=== PATIENT | female | born 1955 | race African-American/Black ===

== ENCOUNTER → 2016-11-01 | Outpatient (CLI) | payer MEDICARE, OTHER ==
--- NOTE | 2016-11-03 07:59 | MM ---
Reason for exam: screening (asymptomatic). Last mammogram was performed 1 year and 2 months ago. History: Patient is postmenopausal. Took estrogen for 1 month. Physical Findings: A clinical breast exam by your physician is recommended on an annual basis and results should be correlated with mammographic findings. MG 3D Screening Mammo W/Cad Bilateral CC and MLO view(s) were taken. Prior study comparison: August 28, 2015, bilateral MG 3d screening mammo w/cad. November 14, 2011, bilateral digital screening mammo w/CAD. There are scattered fibroglandular densities. No significant changes when compared with prior studies. ASSESSMENT: Negative, BI-RAD 1 RECOMMENDATION: Routine screening mammogram of both breasts in 1 year.
== END | disposition home or self-care (01) ==
LOC: RADMAMWWP 16:23
PROVIDERS: ATTEND Family Medicine
DX: Z12.31 Encounter for screening mammogram for malignant neoplasm of breast (principal)
CPT/HCPCS: 77063; G0202

== ENCOUNTER 2017-01-11 20:26 | Emergency (ER) | payer MEDICARE, OTHER ==
[2017-01-11 20:45] VITALS: RESP 20
[2017-01-11] MEDS ORDERED: HYDROmorphone 1 MG/ML 1 ML SYRINGE IVP STA (23:18)
[2017-01-11] MEDS ORDERED: ONDANSETRON 4 MG/2 ML VIAL IVP STA (23:18)
[2017-01-11] MEDS ORDERED: SODIUM CHLORIDE 0.9% 500 ML IV STA (23:18)
[2017-01-11] MEDS ORDERED: SODIUM CHLORIDE 0.9% 1,000 ML IV STA (23:18)
--- NOTE | 2017-01-11 23:26 | ED ---
General Adult HPI - General Source: patient, family, RN notes reviewed Mode of arrival: ambulatory Limitations: no limitations <Tadeo Owen - Last Filed: 01/12/17 01:25> <Matthew Wolf - Last Filed: 01/12/17 03:10> - General Chief complaint: Abdominal Pain Stated complaint: Left side Pain/Female/bleeding Time Seen by Provider: 01/11/17 22:08 - History of Present Illness Initial comments: Chief complaint and history of present illness a 61-year-old female here with her . Patient reports for the past 3 days been having left lower quadrant pain. Initially her urine was darker than it is today she also noticed a few drops of blood. She does have a history of kidney stones the last one was 10 years ago. Denies any history of diverticulitis. She's been nauseated but not vomiting. She has had increased frequency of urine and large amounts not small. (Tadeo Owen) - Related Data Home Medications Medication Instructions Recorded Confirmed Albuterol Nebulized [Ventolin 2.5 mg INHALATION RT-QID PRN 02/21/14 01/11/17 Nebulized] Budesonide [Pulmicort] 0.5 mg INHALATION BID PRN 02/21/14 01/11/17 Hydrochlorothiazide [Hydrodiuril] 12.5 mg PO DAILY 02/21/14 01/11/17 Simvastatin [Zocor] 20 mg PO HS 02/21/14 01/11/17 hydrOXYzine HCL 10 mg PO HS 02/21/14 01/11/17 Atenolol [Tenormin] 50 mg PO DAILY 01/11/17 01/11/17 Clobetasol Propionate [Temovate] 1 applic TOPICAL BID PRN 01/11/17 01/11/17 Hydrocortisone Oint 1 applic TOPICAL HS 01/11/17 01/11/17 [Hydrocortisone 2.5% Oint] Levothyroxine Sodium [Synthroid] 88 mcg PO DAILY 01/11/17 01/11/17 Allergies Allergy/AdvReac Type Severity Reaction Status Date / Time Antihistamines - Alkylamine Allergy Unknown Verified 01/11/17 22:31 Iodinated Contrast Media - Allergy Unknown Verified 01/11/17 22:31 Oral and [Iodinated Contrast Media - IV Dye] lead Allergy Unknown Verified 01/11/17 22:31 aspirin AdvReac nosebleeds Verified 01/11/17 22:31 diphenhydramine HCl AdvReac Rapid Verified 01/11/17 22:31 [From [facility]] Heart Rate Review of Systems ROS Other: All systems not noted in ROS Statement are negative. <Tadeo Owen - Last Filed: 01/12/17 01:25> ROS Other: All systems not noted in ROS Statement are negative. <Matthew Wolf - Last Filed: 01/12/17 03:10> ROS Statement: Those systems with pertinent positive or pertinent negative responses have been documented in the HPI. Review of systems no visual acuity or headache no chest pain or shortness of breath she has nausea but no vomiting. Frequency of urination but no dysuria. She has noticed dark urine which cleared and that she has also noticed what she thinks was several drops of blood. The patient's pain mainly in the left lower quadrant. She states it reminds her of her kidney stone she had years ago. No difficulty bowel movements. Mildly decreased appetite. All systems are reviewed Past medical problems significant for kidney stones, asthma, coronary disease, COPD, TIA, diabetes mellitus [id number] type. GERD, hyperlipidemia, hypertension, rheumatoid arthritis, thyroid disorder. Surgeries include bladder surgery, heart catheterization but no stents. Hysterectomy and orthopedic surgery. Family history father had prostate cancer. Patient reports she has ALLERGIES to iodine both oral and IV. She also has a history of ALLERGIES to aspirin and diphenhydramine. (Tadeo Owen) Past Medical History Past Medical History: Asthma, Coronary Artery Disease (CAD), COPD, CVA/TIA, Diabetes Mellitus, GERD/Reflux, Hyperlipidemia, Hypertension, Rheumatoid Arthritis (RA), Skin Disorder, Thyroid Disorder Additional Past Medical History / Comment(s): only 1 functioning kidney, hx of colon polyps,eczema History of Any Multi-Drug Resistant Organisms: None Reported Past Surgical History: Bladder Surgery, Heart Catheterization, Hysterectomy, Orthopedic Surgery Past Anesthesia/Blood Transfusion Reactions: No Reported Reaction Past Psychological History: No Psychological Hx Reported Smoking Status: Former smoker Past Alcohol Use History: None Reported Past Drug Use History: None Reported <Tadeo Owen - Last Filed: 01/12/17 01:25> General Exam Limitations: no limitations <Tadeo Owen - Last Filed: 01/12/17 01:25> General appearance: alert, in no apparent distress Head exam: Present: atraumatic, normocephalic, normal inspection Eye exam: Present: normal appearance, PERRL, EOMI. Absent: scleral icterus, conjunctival injection, periorbital swelling ENT exam: Present: normal exam, mucous membranes moist Neck exam: Present: normal inspection. Absent: tenderness, meningismus, lymphadenopathy Respiratory exam: Present: normal lung sounds bilaterally. Absent: respiratory distress, wheezes, rales, rhonchi, stridor Cardiovascular Exam: Present: regular rate, normal rhythm, normal heart sounds. Absent: systolic murmur, diastolic murmur, rubs, gallop, clicks GI/Abdominal exam: Present: soft, normal bowel sounds. Absent: distended, tenderness, guarding, rebound, rigid Extremities exam: Present: normal inspection, full ROM, normal capillary refill. Absent: tenderness, pedal edema, joint swelling, calf tenderness Back exam: Present: normal inspection Neurological exam: Present: alert, oriented X3, CN II-XII intact Psychiatric exam: Present: normal affect, normal mood Skin exam: Present: warm, dry, intact, normal color. Absent: rash <Matthew Wolf - Last Filed: 01/12/17 03:10> - General Exam Comments Initial Comments: General: The patient is awake and alert, tearful complaining of left lower quadrant pain for 3 Days with nausea but no vomiting. Also dark-colored urine. Vital signs shows temperature 97.8 pulse 60 respiratory rate 20, blood pressure 119/56 and pulse ox 90% room air Eye: Pupils are equal, round and reactive to light, extra-ocular movements are intact ; there is normal conjunctiva bilaterally. No signs of icterus. Ears, nose, mouth and throat: There are moist mucous membranes and no oral lesions. Neck: The neck is supple, there is no tenderness . Cardiovascular: There is a regular rate and rhythm. No murmur, rub or gallop is appreciated. Respiratory: Lungs are clear to auscultation, respirations are non-labored, breath sounds are equal. No wheezes, stridor, rales, or rhonchi. Gastrointestinal: Soft, left lower quadrant pain. No rebound or referred pain. Back ;There is no tenderness to palpation in the midline. There is no obvious deformity. No rashes noted. Musculoskeletal: Normal ROM, no tenderness, There is no pedal edema. There is no calf tenderness or swelling. Sensation intact. Neurological: No neuro deficits Skin: Skin is warm and dry and no rashes or lesions are noted. (Tadeo Owen) Course <Tadeo Owen - Last Filed: 01/12/17 01:25> <Matthew Wolf - Last Filed: 01/12/17 03:10> Vital Signs 01/11/17 01/11/17 20:39 23:28 Temperature 97.8 F 98.3 F Pulse Rate 60 89 Respiratory 20 20 Rate Blood Pressure 119/56 140/58 O2 Sat by Pulse 98 98 Oximetry - Reevaluation(s) Reevaluation #1: 01/12/17 03:09 Patient is feeling better, CTA negative, patient can be discharged home (Matthew Wolf) Medical Decision Making - Lab Data Result diagrams: 01/11/17 23:33 01/11/17 23:33 <Tadeo Owen - Last Filed: 01/12/17 01:25> - Lab Data Result diagrams: 01/11/17 23:33 01/11/17 23:33 - Radiology Data Radiology results: report reviewed (CT head and pelvis is negative for acute disease), image reviewed <Matthew Wolf - Last Filed: 01/12/17 03:10> - Medical Decision Making Medical decision making; patient's white count 6.1 hemoglobin 12 hematocrit 38. INR is 1.1. Potassium is 4.1 with BUN 24 creatinine 1.1 with a GFR 50. Glucose 99. Amylase mildly elevated 113, normal lipase. Urinalysis showed 16 red cells and 4 white cells X-ray of the abdomen was done in 2 views and reviewed by radiologist final impression is no radial graph evidence of acute abdominal disease or bowel obstruction. No radiopaque renal calculi. As read by Dr. Mcknight (Tadeo Owen ) 61 female ER for evaluation of abdominal pain. Pain is plans resolved chest x- rays negative no diverticulitis and no renal disease. Patient can be discharged home (Matthew Wolf) - Lab Data Lab Results 01/11/17 01/11/17 01/11/17 Range/Units 23:33 23:33 23:33 WBC 6.1 (3.8-10.6) k/uL RBC 4.55 (3.80-5.40) m/uL Hgb 12.4 (11.4-16.0) gm/dL Hct 38.4 (34.0-46.0) % MCV 84.4 (80.0-100.0) fL MCH 27.4 (25.0-35.0) pg MCHC 32.4 (31.0-37.0) g/dL RDW 13.6 (11.5-15.5) % Plt Count 156 (150-450) k/uL Neutrophils % 62 % Lymphocytes % 28 % Monocytes % 4 % Eosinophils % 2 % Basophils % 1 % Neutrophils # 3.8 (1.3-7.7) k/uL Lymphocytes # 1.7 (1.0-4.8) k/uL Monocytes # 0.3 (0-1.0) k/uL Eosinophils # 0.2 (0-0.7) k/uL Basophils # 0.0 (0-0.2) k/uL PT (9.0-12.0) sec INR (<1.1) Sodium 146 H (137-145) mmol/L Potassium 4.1 (3.5-5.1) mmol/L Chloride 106 (98-107) mmol/L Carbon Dioxide 29 (22-30) mmol/L Anion Gap 11 mmol/L BUN 24 H (7-17) mg/dL Creatinine 1.10 H (0.52-1.04) mg/dL Est GFR (MDRD) Af Amer >60 (>60 ml/min/1.73 sqM) Est GFR (MDRD) Non-Af 50 (>60 ml/min/1.73 sqM) Glucose 99 (74-99) mg/dL Plasma Lactic Acid Erasmo 0.7 (0.7-2.0) mmol/L Calcium 9.8 (8.4-10.2) mg/dL Total Bilirubin 0.3 (0.2-1.3) mg/dL AST 33 (14-36) U/L ALT 37 (9-52) U/L Alkaline Phosphatase 56 (38-126) U/L Total Protein 7.4 (6.3-8.2) g/dL Albumin 4.2 (3.5-5.0) g/dL Amylase 113 H (30-110) U/L Lipase 184 (23-300) U/L Urine Color Urine Appearance (Clear) Urine pH (5.0-8.0) Ur Specific [place] (1.001-1.035) Urine Protein (Negative) Urine Glucose (UA) (Negative) Urine Ketones (Negative) Urine Blood (Negative) Urine Nitrite (Negative) Urine Bilirubin (Negative) Urine Urobilinogen (<2.0) mg/dL Ur Leukocyte Esterase (Negative) Urine RBC (0-5) /hpf Urine WBC (0-5) /hpf Ur Squamous Epith Cells (0-4) /hpf Urine Bacteria (None) /hpf Urine Mucus (None) /hpf 01/11/17 01/11/17 Range/Units 23:33 23:33 WBC (3.8-10.6) k/uL RBC (3.80-5.40) m/uL Hgb (11.4-16.0) gm/dL Hct (34.0-46.0) % MCV (80.0-100.0) fL MCH (25.0-35.0) pg MCHC (31.0-37.0) g/dL RDW (11.5-15.5) % Plt Count (150-450) k/uL Neutrophils % % Lymphocytes % % Monocytes % % Eosinophils % % Basophils % % Neutrophils # (1.3-7.7) k/uL Lymphocytes # (1.0-4.8) k/uL Monocytes # (0-1.0) k/uL Eosinophils # (0-0.7) k/uL Basophils # (0-0.2) k/uL PT 10.9 (9.0-12.0) sec INR 1.1 (<1.1) Sodium (137-145) mmol/L Potassium (3.5-5.1) mmol/L Chloride (98-107) mmol/L Carbon Dioxide (22-30) mmol/L Anion Gap mmol/L BUN (7-17) mg/dL Creatinine (0.52-1.04) mg/dL Est GFR (MDRD) Af Amer (>60 ml/min/1.73 sqM) Est GFR (MDRD) Non-Af (>60 ml/min/1.73 sqM) Glucose (74-99) mg/dL Plasma Lactic Acid Erasmo (0.7-2.0) mmol/L Calcium (8.4-10.2) mg/dL Total Bilirubin (0.2-1.3) mg/dL AST (14-36) U/L ALT (9-52) U/L Alkaline Phosphatase (38-126) U/L Total Protein (6.3-8.2) g/dL Albumin (3.5-5.0) g/dL Amylase (30-110) U/L Lipase (23-300) U/L Urine Color Yellow Urine Appearance Clear (Clear) Urine pH 5.5 (5.0-8.0) Ur Specific [place] 1.018 (1.001-1.035) Urine Protein Negative (Negative) Urine Glucose (UA) Negative (Negative) Urine Ketones Negative (Negative) Urine Blood Negative (Negative) Urine Nitrite Negative (Negative) Urine Bilirubin Negative (Negative) Urine Urobilinogen <2.0 (<2.0) mg/dL Ur Leukocyte Esterase Small H (Negative) Urine RBC 16 H (0-5) /hpf Urine WBC 4 (0-5) /hpf Ur Squamous Epith Cells <1 (0-4) /hpf Urine Bacteria Rare H (None) /hpf Urine Mucus Rare H (None) /hpf Disposition <Tadeo Owen - Last Filed: 01/12/17 01:25> <Matthew Wolf - Last Filed: 01/12/17 03:10> Clinical Impression: Abdominal pain Disposition: HOME SELF-CARE Condition: Good Instructions: Abdominal Pain (ED) Referrals: Roe Leyva MD [Primary Care Provider] - 1-2 days
[2017-01-11 23:50] LABS: Basophils % (A) 1 %; CH 27.2; CHCM 32.3; Eosinophils # (A) 0.2 k/uL (0-0.7); Eosinophils % (A) 2 %; HCT 38.4 % (34.0-46.0); HDW 2.89; HGB 12.4 gm/dL (11.4-16.0); Luc # (Auto) 0.19; Luc % (Auto) 3; Lymphocytes # (A) 1.7 k/uL (1.0-4.8); Lymphocytes % (A) 28 %; MCH 27.4 pg (25.0-35.0); MCHC 32.4 g/dL (31.0-37.0); MCV 84.4 fL (80.0-100.0); Mean Platelet Volume 8.8; Monocytes # (A) 0.3 k/uL (0-1.0); Monocytes % (A) 4 %; Neutrophils # (A) 3.8 k/uL (1.3-7.7); Neutrophils % (A) 62 %; RBC 4.55 m/uL (3.80-5.40); RDW 13.6 % (11.5-15.5); WBC 6.1 k/uL (3.8-10.6); WBC (Perox) 6.34
[2017-01-11 23:52] LABS: Appearance,Urine Clear (Clear); Bacteria,Urine Rare /hpf; Bilirubin,Urine Negative (Negative); Glucose,Urine (UA) Negative (Negative); Ketones,Urine Negative (Negative); Leukocyte Esterase,Urine Small (Negative); Mucus,Urine Rare /hpf; Nitrite,Urine Negative (Negative); PH, Urine 5.5 (5.0-8.0); Particle Count 3714; Protein,Urine Negative (Negative); RBC,Urine 16 /hpf (0-5); Specific Gravity,Urine 1.018 (1.001-1.035); Squamous Epithelial Cell,Urine <1 /hpf (0-4); UA Billing (MACRO vs. MICRO) MICRO; Urobilinogen,Urine <2.0 mg/dL (<2.0); WBC,Urine 4 /hpf (0-5)
[2017-01-11 23:55] LABS: INR 1.1 (<1.1); Prothrombin Time 10.9 sec (9.0-12.0)
[2017-01-11 23:56] LABS: ALT 37 U/L (9-52); AST 33 U/L (14-36); Alkaline Phosphatase 56 U/L (38-126); Amylase 113 U/L (30-110); Anion Gap 11 mmol/L; Blood Urea Nitrogen 24 mg/dL (7-17); Calcium 9.8 mg/dL (8.4-10.2); Carbon Dioxide 29 mmol/L (22-30); Chloride 106 mmol/L (98-107); Glucose 99 mg/dL (74-99); Non-African American GFR(MDRD) 50 (>60 ml/min/1.73 sqM); Potassium 4.1 mmol/L (3.5-5.1); Sodium 146 mmol/L (137-145); Total Bilirubin 0.3 mg/dL (0.2-1.3); Total Protein 7.4 g/dL (6.3-8.2)
--- NOTE | 2017-01-12 01:15 | XR ---
EXAM: XR Abdomen Complete, 2 or More Views. CLINICAL HISTORY: Reason: Left lower quadrant pain TECHNIQUE: Frontal view of the abdomen/pelvis with upright view of the abdomen. COMPARISON: No relevant prior studies available. FINDINGS: Intraperitoneal space: Bowel gas pattern is unremarkable. No evidence of bowel obstruction or pneumoperitoneum. Gastrointestinal tract: Unremarkable. No dilation. Organs: No radiopaque renal calculi identified. Small 2 mm calcination right lower pelvis most likely representing calcified pelvic phlebolith. Bones/joints: Unremarkable. IMPRESSION: No radiograph evidence of acute abdominal disease or bowel obstruction. No radiopaque renal calculi
--- NOTE | 2017-01-12 02:41 | CT ---
EXAM: CT Abdomen and Pelvis Without Intravenous Contrast. CLINICAL HISTORY: Reason: Hematuria, left lower quadrant pain TECHNIQUE: Axial computed tomography images of the abdomen and pelvis without intravenous contrast. CTDI is 11.20 mGy and DLP is 562.8 mGy-cm This CT exam was performed using one or more of the following dose reduction techniques: automated exposure control, adjustment of the mA and/or kV according to patient size, and/or use of iterative reconstruction technique. COMPARISON: Abdominal radiographs 01/12/2017 FINDINGS: Lower thorax: Lung bases demonstrate some scattered opacity suggesting interstitial fibrotic changes or subsegmental atelectasis. ABDOMEN: Liver: Liver is of normal size. There are several small low-density lesions measuring approximately 1 cm or less in size which are nonspecific and may represent small hepatic cysts. Gallbladder and bile ducts: Gallbladder: No radiopaque gallstones. No pericholecystic inflammatory changes. No ductal dilation. Pancreas: Pancreas is unremarkable. No ductal dilation. Spleen: Spleen is unremarkable. Adrenals: No adrenal masses Kidneys and ureters: Kidneys are normal size bilaterally. Approximately 2 cm low-density lesion upper pole right kidney which is nonspecific and may reflect renal cyst. There are 2 approximately 2 mm nonobstructing calculi inferior pole right kidney. Mild dilatation of right pelvicalyceal collecting system which is of uncertain etiology no significant ureteral dilatation and no obstructing ureteral calculus is identified. Approximately 1-2 millimeter nonobstructing calculus mid zone left kidney. 2 mm nonobstructing calculus inferior pole left kidney. No evidence of left hydronephrosis. Small approximately 3 mm calcination projects along course of left mid ureter suspicious for ureteral calculus. No significant ureteral dilatation or hydronephrosis identified. Stomach and bowel: No evidence of bowel obstruction. No evidence of appendicitis. Scattered colonic diverticula without evidence of diverticulitis. Appendix: See above. PELVIS: Bladder: No bladder calculi identified. Reproductive: Unremarkable as visualized. ABDOMEN and PELVIS: Intraperitoneal space: Unremarkable. No free air. No significant fluid collection. Bones/joints: No acute fracture. No dislocation. Soft tissues: Unremarkable. Vasculature: No evidence of abdominal aortic aneurysm. Lymph nodes: Unremarkable. No enlarged lymph nodes. IMPRESSION: Probable small hepatic cysts. Ultrasound would be useful for further evaluation. Right upper pole low-density renal lesion which may also represent renal cyst. Ultrasound recommended for further evaluation. Small nonobstructing bilateral renal calculi. Findings suggesting small approximately 3 mm left mid ureteral calculus without any significant ureteral dilatation or hydronephrosis. Mild right hydronephrosis which is of uncertain etiology and no obstructing right ureteral calculus is identified. Colonic diverticulosis.
[2017-01-12 03:23] VITALS: BP 134/78; PULSE 80; TEMP 98.2
== END 2017-01-12 03:22 | disposition home or self-care (01) ==
LOC: EC 20:26
DX: R10.32 Left lower quadrant pain (principal); R74.8 Abnormal levels of other serum enzymes; R11.0 Nausea; I25.10 Atherosclerotic heart disease of native coronary artery without angina pectoris; E78.5 Hyperlipidemia, unspecified; I10 Essential (primary) hypertension; E07.9 Disorder of thyroid, unspecified; Z87.891 Personal history of nicotine dependence; Z79.899 Other long term (current) drug therapy; Z88.8 Allergy status to other drugs, medicaments and biological substances; Z88.6 Allergy status to analgesic agent; Z91.041 Radiographic dye allergy status; Z87.442 Personal history of urinary calculi; Z95.818 Presence of other cardiac implants and grafts
CPT/HCPCS: 99284; 96374; 96375; 96361 ×4; 36415; 80053; 82150; 83605; 83690; 85025; 85610; 81001; 87086; 74020; 74176; J2405; J1170

== ENCOUNTER → 2017-05-11 | Outpatient (CLI) | payer MEDICARE, OTHER ==
--- NOTE | 2017-05-11 13:57 | US ---
EXAMINATION TYPE: US kidneys/renal and bladder DATE OF EXAM: 05/11/2017 COMPARISON: NONE CLINICAL HISTORY: N20.0 CHARLES NEPHROLITHIASIS. pt states only one functioning kidney, prior stones, rt renal cyst EXAM MEASUREMENTS: Right Kidney: 10.9 x 5.1 x 5.5 cm Left Kidney: 11.7 x 5.7 x 5.8 cm Bilateral heterogeneous sinus with some cortical lobulation. Right Kidney: 2.0cm cyst at the upper pole Left Kidney: heterogeneous sinus Bladder: not fully distended, wnl as seen Bilateral Jets seen: no There is no evidence for hydronephrosis at this point in time. No nephrolithiasis is seen. The uri nary bladder is anechoic. IMPRESSION: Simple cyst upper pole right kidney.
== END ==
LOC: RADUSWWP 13:35
PROVIDERS: ATTEND Internal Medicine
DX: N28.1 Cyst of kidney, acquired (principal)
CPT/HCPCS: 76770

== ENCOUNTER 2017-07-17 14:46 | Observation (INO) | payer MEDICARE, OTHER ==
[2017-07-17] MEDS ORDERED: ASPIRIN 81 MG PO STA (15:14)
--- NOTE | 2017-07-17 15:21 | ED ---
General Adult HPI - General Chief complaint: Chest Pain Stated complaint: Chest Pain Time Seen by Provider: 07/17/17 15:07 Source: patient, RN notes reviewed Mode of arrival: ambulatory Limitations: no limitations - History of Present Illness Initial comments: Patient 61-year-old female who presents emergency room today with chief complaint of right-sided back pain and chest pain that began approximately 3 hours ago. She states that she was up doing housework at work and was feeling fine. She states she admitted to the bathroom was going to take a shower when she began feeling a very sudden "sharp" type pain to the right side of her back. She states she felt like she was paralyzed and could not move due to pain. She states that it been wrapped around to the front of her chest. States still experiencing discomfort at this time is not as sharp. Patient states never had similar symptoms in the past. She denies any other complaints or symptoms. Patient denies any recent fever, chills, shortness of breath, abdominal pain, nausea or vomiting, numbness or tingling, dysuria or hematuria, constipation or diarrhea, headaches or visual changes, or any other complaints. - Related Data Home Medications Medication Instructions Recorded Confirmed Albuterol Nebulized [Ventolin 2.5 mg INHALATION RT-QID PRN 02/21/14 07/17/17 Nebulized] Budesonide [Pulmicort] 0.5 mg INHALATION RT-BID PRN 02/21/14 07/17/17 Hydrochlorothiazide [Hydrodiuril] 12.5 mg PO DAILY 02/21/14 07/17/17 hydrOXYzine HCL 10 mg PO HS 02/21/14 07/17/17 Atenolol [Tenormin] 50 mg PO DAILY 01/11/17 07/17/17 Hydrocortisone Oint 1 applic TOPICAL BID PRN 01/11/17 07/17/17 [Hydrocortisone 2.5% Oint] Levothyroxine Sodium [Synthroid] 88 mcg PO DAILY 01/11/17 07/17/17 Betamethasone Dipropionate 1 applic TOPICAL BID 07/17/17 07/17/17 [Diprolene AF 0.05% Cream] Vits A,C,E/Lutein/Minerals 1 tab PO DAILY 07/17/17 07/17/17 [Ocuvite with Lutein Tablet] Allergies Allergy/AdvReac Type Severity Reaction Status Date / Time Antihistamines - Alkylamine Allergy Unknown Verified 07/17/17 15:30 Iodinated Contrast- Oral and Allergy Anaphylaxis Verified 07/17/17 15:30 IV Dye [Iodinated Contrast Media - IV Dye] lead Allergy Unknown Verified 07/17/17 15:30 aspirin AdvReac nosebleeds Verified 07/17/17 15:30 diphenhydramine HCl AdvReac Rapid Verified 07/17/17 15:30 [From Benadryl] Heart Rate Review of Systems ROS Statement: Those systems with pertinent positive or pertinent negative responses have been documented in the HPI. ROS Other: All systems not noted in ROS Statement are negative. Past Medical History Past Medical History: Asthma, Coronary Artery Disease (CAD), COPD, CVA/TIA, Diabetes Mellitus, GERD/Reflux, Hyperlipidemia, Hypertension, Rheumatoid Arthritis (RA), Skin Disorder, Thyroid Disorder Additional Past Medical History / Comment(s): only 1 functioning kidney, hx of colon polyps,eczema History of Any Multi-Drug Resistant Organisms: None Reported Past Surgical History: Bladder Surgery, Heart Catheterization, Hysterectomy, Orthopedic Surgery Past Anesthesia/Blood Transfusion Reactions: No Reported Reaction Past Psychological History: No Psychological Hx Reported Smoking Status: Former smoker Past Alcohol Use History: None Reported Past Drug Use History: None Reported General Exam - General Exam Comments Initial Comments: General: The patient is awake and alert, in no distress, and does not appear acutely ill. Eye: Pupils are equal, round and reactive to light, extra-ocular movements are intact. No nystagmus. There is normal conjunctiva bilaterally. No signs of icterus. Ears, nose, mouth and throat: There are moist mucous membranes and no oral lesions. Neck: The neck is supple, there is no tenderness or JVD. Cardiovascular: There is a regular rate and rhythm. No murmur, rub or gallop is appreciated. Respiratory: Lungs are clear to auscultation, respirations are non-labored, breath sounds are equal. No wheezes, stridor, rales, or rhonchi. Gastrointestinal: Soft, non-distended, non-tender abdomen without masses or organomegaly noted. There is no rebound or guarding present. No CVA tenderness. Bowel sounds are unremarkable. Musculoskeletal: Normal ROM, no tenderness. Strength 5/5. Sensation intact. Pulses equal bilaterally 2+. Neurological: A&O x 3. CN II-XII intact, There are no obvious motor or sensory deficits. Coordination appears grossly intact. Speech is normal. Skin: Skin is warm and dry and no rashes or lesions are noted. Psychiatric: Cooperative, appropriate mood & affect, normal judgment. 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 Patient does admit to some improvement after sublingual nitroglycerin. Patient's EKG shows no acute ST changes. Does show some flipped T waves. Compared to previous EKG on 08/29/2015. Patient's initial set of cardiac enzymes are negative. Patient will be admitted to the hospital for serial enzymes with consult to cardiology.Case discussed in detail with attending physician Dr. Saini. - Lab Data Result diagrams: 07/17/17 15:20 07/17/17 15:20 Lab Results 07/17/17 07/17/17 07/17/17 Range/Units 15:20 15:20 15:20 WBC 5.6 (3.8-10.6) k/uL RBC 4.55 (3.80-5.40) m/uL Hgb 12.7 (11.4-16.0) gm/dL Hct 39.4 (34.0-46.0) % MCV 86.6 (80.0-100.0) fL MCH 27.8 (25.0-35.0) pg MCHC 32.1 (31.0-37.0) g/dL RDW 14.1 (11.5-15.5) % Plt Count 169 (150-450) k/uL Neutrophils % 71 % Lymphocytes % 21 % Monocytes % 4 % Eosinophils % 2 % Basophils % 0 % Neutrophils # 4.0 (1.3-7.7) k/uL Lymphocytes # 1.2 (1.0-4.8) k/uL Monocytes # 0.2 (0-1.0) k/uL Eosinophils # 0.1 (0-0.7) k/uL Basophils # 0.0 (0-0.2) k/uL Hypochromasia Slight PT (9.0-12.0) sec INR (<1.2) APTT (22.0-30.0) sec Sodium 144 (137-145) mmol/L Potassium 3.9 (3.5-5.1) mmol/L Chloride 106 (98-107) mmol/L Carbon Dioxide 29 (22-30) mmol/L Anion Gap 9 mmol/L BUN 15 (7-17) mg/dL Creatinine 0.80 (0.52-1.04) mg/dL Est GFR (MDRD) Af Amer >60 (>60 ml/min/1.73 sqM) Est GFR (MDRD) Non-Af >60 (>60 ml/min/1.73 sqM) Glucose 103 H (74-99) mg/dL Calcium 9.6 (8.4-10.2) mg/dL Magnesium 1.9 (1.6-2.3) mg/dL Total Bilirubin 0.4 (0.2-1.3) mg/dL AST 22 (14-36) U/L ALT 30 (9-52) U/L Alkaline Phosphatase 71 (38-126) U/L Total Creatine Kinase 132 (30-135) U/L CK-MB (CK-2) 0.8 (0.0-2.4) ng/mL CK-MB (CK-2) Rel Index 0.6 Troponin I <0.012 (0.000-0.034) ng/mL Total Protein 7.0 (6.3-8.2) g/dL Albumin 4.0 (3.5-5.0) g/dL 07/17/17 Range/Units 15:20 WBC (3.8-10.6) k/uL RBC (3.80-5.40) m/uL Hgb (11.4-16.0) gm/dL Hct (34.0-46.0) % MCV (80.0-100.0) fL MCH (25.0-35.0) pg MCHC (31.0-37.0) g/dL RDW (11.5-15.5) % Plt Count (150-450) k/uL Neutrophils % % Lymphocytes % % Monocytes % % Eosinophils % % Basophils % % Neutrophils # (1.3-7.7) k/uL Lymphocytes # (1.0-4.8) k/uL Monocytes # (0-1.0) k/uL Eosinophils # (0-0.7) k/uL Basophils # (0-0.2) k/uL Hypochromasia PT 11.2 (9.0-12.0) sec INR 1.1 (<1.2) APTT 24.9 (22.0-30.0) sec Sodium (137-145) mmol/L Potassium (3.5-5.1) mmol/L Chloride (98-107) mmol/L Carbon Dioxide (22-30) mmol/L Anion Gap mmol/L BUN (7-17) mg/dL Creatinine (0.52-1.04) mg/dL Est GFR (MDRD) Af Amer (>60 ml/min/1.73 sqM) Est GFR (MDRD) Non-Af (>60 ml/min/1.73 sqM) Glucose (74-99) mg/dL Calcium (8.4-10.2) mg/dL Magnesium (1.6-2.3) mg/dL Total Bilirubin (0.2-1.3) mg/dL AST (14-36) U/L ALT (9-52) U/L Alkaline Phosphatase (38-126) U/L Total Creatine Kinase (30-135) U/L CK-MB (CK-2) (0.0-2.4) ng/mL CK-MB (CK-2) Rel Index Troponin I (0.000-0.034) ng/mL Total Protein (6.3-8.2) g/dL Albumin (3.5-5.0) g/dL Disposition Clinical Impression: Chest pain Disposition: ADMITTED IP TO THIS HOSP Condition: Good Referrals: Roe Leyva MD [Primary Care Provider] - 1-2 days Time of Disposition: 16:25
[2017-07-17] MEDS: NITROGLYCERIN SL TABS 0.4 MG TAB SUBLINGUAL PRN ×2 (15:29→15:36)
[2017-07-17 15:36] LABS: Basophils % (A) 0 %; CH 27.1; CHCM 31.4; Eosinophils # (A) 0.1 k/uL (0-0.7); Eosinophils % (A) 2 %; HCT 39.4 % (34.0-46.0); HDW 2.69; HGB 12.7 gm/dL (11.4-16.0); Hypochromasia Slight; Luc # (Auto) 0.09; Luc % (Auto) 2; Lymphocytes # (A) 1.2 k/uL (1.0-4.8); Lymphocytes % (A) 21 %; MCH 27.8 pg (25.0-35.0); MCHC 32.1 g/dL (31.0-37.0); MCV 86.6 fL (80.0-100.0); Mean Platelet Volume 7.9; Monocytes # (A) 0.2 k/uL (0-1.0); Monocytes % (A) 4 %; Neutrophils % (A) 71 %; RBC 4.55 m/uL (3.80-5.40); RDW 14.1 % (11.5-15.5); WBC 5.6 k/uL (3.8-10.6); WBC (Perox) 5.23
[2017-07-17] MEDS ORDERED: ACETAMINOPHEN TAB 500 MG TAB PO STA (15:36)
[2017-07-17 15:47] LABS: ALT 30 U/L (9-52); AST 22 U/L (14-36); Alkaline Phosphatase 71 U/L (38-126); Anion Gap 9 mmol/L; Blood Urea Nitrogen 15 mg/dL (7-17); Calcium 9.6 mg/dL (8.4-10.2); Carbon Dioxide 29 mmol/L (22-30); Chloride 106 mmol/L (98-107); Glucose 103 mg/dL (74-99); Magnesium 1.9 mg/dL (1.6-2.3); Non-African American GFR(MDRD) >60 (>60 ml/min/1.73 sqM); Potassium 3.9 mmol/L (3.5-5.1); Sodium 144 mmol/L (137-145); Total Bilirubin 0.4 mg/dL (0.2-1.3)
[2017-07-17 15:50] LABS: INR 1.1 (<1.2); Partial Thromboplastin Time 24.9 sec (22.0-30.0); Prothrombin Time 11.2 sec (9.0-12.0)
[2017-07-17 15:56] LABS: Creatine Kinase 132 U/L (30-135)
[2017-07-17 15:58] VITALS: RESP 18
--- NOTE | 2017-07-17 15:58 | XR ---
EXAMINATION TYPE: XR chest 2V DATE OF EXAM: 07/17/2017 COMPARISON: Chest x-ray August 29, 2015 HISTORY: History of asthma and COPD presents with chest pain into neck. TECHNIQUE: Frontal and lateral views of the chest are obtained. FINDINGS: There is no focal air space opacity, pleural effusion, or pneumothorax seen. The cardiac silhouette size is within normal limits. The osseous structures are intact. IMPRESSION: No acute process. No significant change from prior.
[2017-07-17 16:10] LABS: Creatine Kinase MB 0.8 ng/mL (0.0-2.4); Troponin I <0.012 ng/mL (0.000-0.034)
[2017-07-17] MEDS ORDERED: HEPARIN SODIUM,PORCINE 5,000 UNIT/ML 1 ML VIAL IV ONE (16:26)
[2017-07-17] MEDS ORDERED: ACETAMINOPHEN TAB 325 MG TAB PO PRN (16:26)
[2017-07-17] MEDS ORDERED: SODIUM CHLORIDE 0.9% 1,000 ML IV ONE (16:26)
[2017-07-17] MEDS ORDERED: HEPARIN SODIUM,PORCINE/D5W PMX 25,000 UNIT in DEXTROSE/WATER 1 500ML.BAG IV SCH (16:30)
[2017-07-17] MEDS ORDERED: NITROGLYCERIN OINT 1 INCH/GM PACKET TOPICAL SCH (18:00)
[2017-07-17] MEDS ORDERED: BUDESONIDE 0.5 MG/2 ML NEBU INHALATION PRN (19:00)
[2017-07-17] MEDS ORDERED: TRIAMCINOLONE ACET 0.1% OINTMENT 80 GM TUBE TOPICAL PRN (19:00)
[2017-07-17] MEDS ORDERED: ALBUTEROL NEBULIZED 2.5 MG/3 ML INHALATION PRN (19:00)
[2017-07-17] MEDS: BETAMETHASONE DIPROPIONATE 0.05% CREAM 15 GM TUBE TOPICAL SCH (20:06)
--- NOTE | 2017-07-17 20:17 | P.HPIM ---
History of Present Illness H&P Date: 07/17/17 Chief Complaint: Chest pain 61 y.o female who presented to the emergency department after having an acute episode of right sided chest pain. This occured after she finished taking a shower, the pain paralyzed her started in her back and wrapped around the right anterior chest wall and radiated to the left chest wall. Review of Systems GEN.: weak and tired EYES: [None] HEENT: [None] NECK: [None] RESPIRATORY: [None] CARDIOVASCULAR: [right sided chest pain radiates to the back] GASTROINTESTINAL: [acid reflux, constipation] GENITOURINARY: [urinary incontinence] MUSCULOSKELETAL: weakness] LYMPHATICS: [None] HEMATOLOGICAL: [None] PSYCHIATRY: [None] NEUROLOGICAL: [None] Past Medical History Past Medical History: Asthma, Coronary Artery Disease (CAD), COPD, CVA/TIA, Diabetes Mellitus, GERD/Reflux, Hyperlipidemia, Hypertension, Pneumonia, Rheumatoid Arthritis (RA), Skin Disorder, Thyroid Disorder Additional Past Medical History / Comment(s): only 1 functioning kidney, hx of colon polyps,eczema, PAST AFIB.bronchitis, diet controlled dm. past radioactive tx for thyroid. History of Any Multi-Drug Resistant Organisms: None Reported Past Surgical History: Bladder Surgery, Heart Catheterization, Hysterectomy, Orthopedic Surgery Additional Past Surgical History / Comment(s): lasik eye sx, past cardioversion , sx for ruptured fallopian tube,cononosopy/polypectomy, rt knee sx for torn acl /debreidment, laparoscopy for endometreosis. 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 Marital status: lives with Medications and Allergies Home Medications Medication Instructions Recorded Confirmed Type Albuterol Nebulized [Ventolin 2.5 mg INHALATION RT-QID PRN 02/21/14 07/17/17 History Nebulized] Budesonide [Pulmicort] 0.5 mg INHALATION RT-BID PRN 02/21/14 07/17/17 History Hydrochlorothiazide [Hydrodiuril] 12.5 mg PO DAILY 02/21/14 07/17/17 History hydrOXYzine HCL 10 mg PO HS 02/21/14 07/17/17 History Atenolol [Tenormin] 50 mg PO DAILY 01/11/17 07/17/17 History Hydrocortisone Oint 1 applic TOPICAL BID PRN 01/11/17 07/17/17 History [Hydrocortisone 2.5% Oint] Levothyroxine Sodium [Synthroid] 88 mcg PO DAILY 01/11/17 07/17/17 History Betamethasone Dipropionate 1 applic TOPICAL BID 07/17/17 07/17/17 History [Diprolene AF 0.05% Cream] Vits A,C,E/Lutein/Minerals 1 tab PO DAILY 07/17/17 07/17/17 History [Ocuvite with Lutein Tablet] Allergies Allergy/AdvReac Type Severity Reaction Status Date / Time Antihistamines - Alkylamine Allergy Unknown Verified 07/17/17 15:30 Iodinated Contrast- Oral and Allergy Anaphylaxis Verified 07/17/17 15:30 IV Dye [Iodinated Contrast Media - IV Dye] lead Allergy Unknown Verified 07/17/17 15:30 aspirin AdvReac nosebleeds Verified 07/17/17 15:30 diphenhydramine HCl AdvReac Rapid Verified 07/17/17 15:30 [From Benadryl] Heart Rate Physical Exam Vitals: Vital Signs Temp Pulse Pulse Pulse Resp BP BP 07/17/17 18:33 07/17/17 18:08 97.7 F 52 L 18 140/62 07/17/17 17:43 97.0 F L 52 L 18 150/70 07/17/17 15:45 60 07/17/17 15:39 56 L 18 129/64 07/17/17 15:04 97.6 F 60 20 188/86 Pulse Ox 07/17/17 18:33 96 07/17/17 18:08 100 07/17/17 17:43 07/17/17 15:45 07/17/17 15:39 96 07/17/17 15:04 95 Intake and Output 07/17/17 07/17/17 07/17/17 06:59 14:59 22:59 Other: Voiding Method Toilet Weight 88.9 kg Patient Weight 07/18/17 06:59 Weight 88.9 kg VITAL SIGNS: [Temperature 97.0, pulse 52, respirations 18, blood pressure 150/70 , oxygen saturation 96% on 2 L. BMI 31.6 kg/m] GENERAL: [Average built, sitting up, comfortable]. EYES: [Pupils equal. Conjunctiva atif]l. HEENT: [External appearance of nose and ears normal, oral cavity grossly normal] . NECK: [JVD not raised; masses not palpable]. HEART: [First and second heart sounds are normal; no edema]. LUNGS:[ Respiratory rate normal; clear to auscultation]. ABDOMEN: [Soft, nontender, liver spleen not palpable, no masses palpable]. LYMPHATICS: [No lymph nodes palpable in the axilla and neck]. PSYCH: [Alert and oriented x3; mood and affect atif]l. NEUROLOGICAL: [Cranial nerves grossly intact; no facial asymmetry, power and sensation grossly intact]. Results CBC & Chem 7: 07/17/17 15:20 07/17/17 15:20 Labs: Abnormal Lab Results - Last 24 Hours (Table) 07/17/17 Range/Units 15:20 Glucose 103 H (74-99) mg/dL Assessment and Plan Plan: ASSESSMENT: -Acute chest pain, atypical, in a patient with known coronary artery disease -Diabetes mellitus2 controlled with diet -Essential hypertension -Hypothyroidism in a patient with a history of radioactive treatment for thyroid -Chronic asthma, controlled -Rheumatoid arthritis -Stress urinary incontinence PLAN: Continue home medications, cardiology consulted,nitro- bid ointment applied, heparin drip initiated. Plan of care discussed with the patient and family at the bedside and they are in agreement. We'll continue to monitor closely NEUROLOGY PHYSICIAN STATEMENT: Patient was seen and examined by nurse practitioner Ava Botello and all elements of the case were discussed with attending Dr. Rincon.
[2017-07-17] MEDS ORDERED: RX INFO: IV CONTRAST WAS GIVEN 1 EACH MISC MISCELLANE PRN (20:25)
[2017-07-17] MEDS ORDERED: methylPREDNISolone SOD SUCCI 125 MG/2 ML VIAL IV STA (20:43)
[2017-07-17] MEDS ORDERED: diphenhydrAMINE 50 MG/ML 1 ML VIAL IVP STA (20:43)
[2017-07-17] MEDS ORDERED: FAMOTIDINE 20 MG/2 ML VIAL IV STA (20:43)
[2017-07-17] MEDS ORDERED: hydrOXYzine HCL 10 MG TAB PO SCH (21:00)
[2017-07-17] MEDS: DICLOFENAC SODIUM GEL 100 GM TUBE TOPICAL SCH (22:33)
[2017-07-17] MEDS: BACLOFEN 10 MG TAB PO SCH (22:37)
--- NOTE | 2017-07-17 22:37 | CT ---
EXAMINATION TYPE: CT angio chest DATE OF EXAM: 07/17/2017 10:18 PM COMPARISON: 10/04/2013 HISTORY: elevated d-dimer. CT DLP: 410.2 mGycm Automated exposure control for dose reduction was used. CONTRAST: CTA scan of the thorax is performed with IV Contrast, patient injected with 80 mL of Omnipaque 350, p ulmonary embolism protocol. There are 3-D post processed images.. FINDINGS: There is diffuse coarse interstitial infiltrates throughout the lungs. There is groundglass density i n the subpleural bilateral lung yost. Thoracic aorta shows mild atheromatous change. There is no evidence of dissection. I see no filling d efects in the pulmonary arteries. Heart is enlarged. There is no pericardial effusion. There is no pl eural effusion. The bony thorax is intact. There are paratracheal lymph nodes that measure up to 1.5 cm. There are rounded hypodense foci in the liver that measure up to 12 mm. IMPRESSION: NO EVIDENCE OF PULMONARY EMBOLISM. NONSPECIFIC MEDIASTINAL LYMPH NODES. THESE APPEAR SIMILAR TO OLD E XAM. CARDIOMEGALY. INTERSTITIAL EXTENSIVE PULMONARY INFILTRATES APPEAR OVERALL SLIGHTLY IMPROVED COMPARED TO LAST EXAM O F 10/04/2013. THERE ARE ROUNDED HYPODENSE FOCI IN THE LIVER PROBABLY DUE TO MULTIPLE CYSTS THAT ARE U NCHANGED IN SIZE COMPARED TO CT SCAN OF THE ABDOMEN OF 10/29/2013. THIS CHEST APPEARANCE COULD RELATE TO SARCOIDOSIS. THERE IS A 3 CM CYST IN THE UPPER POLE RIGHT KIDNEY THAT IS INCREASED COMPARED TO 10/16. THERE APPEARS TO BE A NEW RIGHT-SIDED HYDRONEPHROSIS COMPARED TO OLD CT SCAN.
[2017-07-17 23:00] LABS: Creatine Kinase 106 U/L (30-135)
[2017-07-17 23:12] LABS: Creatine Kinase MB 0.5 ng/mL (0.0-2.4); Troponin I <0.012 ng/mL (0.000-0.034)
[2017-07-18 03:36] LABS: Creatine Kinase 107 U/L (30-135)
[2017-07-18 03:49] LABS: Creatine Kinase MB 0.5 ng/mL (0.0-2.4); Troponin I <0.012 ng/mL (0.000-0.034)
--- NOTE | 2017-07-18 05:29 | HP ---
HISTORY AND PHYSICAL DATE OF ADMISSION: 07/17/2017. ATTENDING NOTE: This patient seen and examined by me. I discussed with my KNOCK OUT HAND, Ms. Botello. This patient was in the shower, had just finished taking a shower and had just put her underwear on and then she simply got a sharp sudden pain on the right side of the chest likely paralyzing she explained. Then could not move. She was still standing up, never fell down. [place] a bit dizzy. Slightly short of breath. No left-sided chest pain. No palpitations. Continues to have pain localized on the right side of the chest since that time. The patient has a history of congestive heart failure. No coronary blockage described. She has got only 1 functional kidney. The patient's and other members of the sikhism are present with her. Breathing otherwise is stable. Chronic stable medical conditions include asthma, diabetes, GERD, hyperlipidemia, hypertension, rheumatoid arthritis, hypothyroid, 1 functional kidney, questionable atrial fibrillation and congestive heart failure. Patient does follow with Dr. Alexandra Mulligan. EXAMINATION: Temperature 97.7, pulse 60, resting 20, blood pressure 129/64, pulse ox 96% on room air. Initial blood pressure was 188/86, but shortly came down to 129/64. Lungs are clear. CARDIOVASCULAR: First and second sounds normal. ABDOMEN: Soft, nontender. MUSCULOSKELETAL: Patient has got significant tenderness in the medial aspect of the scapula and patient has limited range of motion on the left shoulder especially not able to offered on the spine. INVESTIGATIONS: Chest x-ray: Negative. EKG: Normal sinus rhythm with nonspecific T-wave changes from V2 to V6. ASSESSMENT: 1. Acute right-sided chest pain with tenderness noted around the medial aspect the scapula. Could be a pinched nerve, sciatic radiculopathy from the thoracic spine. 2. Intermittent asthma, stable. 3. Hypothyroid. 4. Gastroesophageal reflux disease. 5. Hyperlipidemia. 6. Essential hypertension. 7. Rheumatoid arthritis. 8. One functioning kidney. 9. History of atrial fibrillation that is paroxysmal currently in sinus rhythm. 10.Chronic congestive heart failure, EF not known. PLAN: Given that patient has slight lightheadedness and nonspecific T-wave changes, will do a CT angio of the chest to make sure we are not dealing with anything else. Pain is predominantly right-sided findings. Will also give some diclofenac gel for topical NSAID and also baclofen for antispasmodic and heating pad. Care was discussed with the patient and family members at the bedside. Will get a cardiology opinion. Care was discussed. MARTITA / OSMANYN: [id number] /
[2017-07-18] MEDS ORDERED: LEVOTHYROXINE 88 MCG TAB PO SCH (06:30)
[2017-07-18 06:51] LABS: Cholesterol 252 mg/dL (<200); HDL Cholesterol 50 mg/dL (40-60)
[2017-07-18] MEDS ORDERED: ASPIRIN 325 MG TAB PO SCH (09:00)
[2017-07-18] MEDS ORDERED: ATENOLOL 50 MG TAB PO SCH (09:00)
[2017-07-18] MEDS ORDERED: HYDROCHLOROTHIAZIDE 12.5 MG CAP PO SCH (09:00)
[2017-07-18] MEDS ORDERED: ASPIRIN 81 MG PO SCH (09:00)
[2017-07-18] MEDS ORDERED: DOBUTamine DRIP for NUC MED 500 MG in DEXTROSE/WATER 1 250ML.BAG IV ONE (09:20)
[2017-07-18] MEDS ORDERED: ATORVASTATIN 20 MG TAB PO SCH (09:30)
--- NOTE | 2017-07-18 10:22 | P.CRDCN ---
History of Present Illness Consult date: 07/18/17 History of present illness: This is a 61-year-old -[place] female. Past medical history essential hypertension, hyperlipidemia, hypothyroidism, atrial fibrillation status post successful cardioversion. Rate control maintained with atenolol 50 mg daily. Patient presents to the hospital after having an episode of acute upper back pain. She states she was getting out of the shower when she felt a sharp pain to the left upper back. The pain went up into the neck down into the left arm. Patient states it was very uncomfortable and excruciating pain so bad she couldn't move. Associated with shortness of breath, nausea and dizziness. She denies palpitations or diaphoresis. She states the pain lasted for approximately 20 minutes and went away on its own. She can specify no specific alleviating factors. She does say that the pain was made worse with movement. And she still feels generally sore in the upper back region. She follows regularly with Dr. NORI Mulligan as an outpatient. She underwent cardiac catheterization in May 2013 which revealed no significant obstructive disease. She is a former smoker. EKG reveals sinus mechanism with T-wave inversions in precordial leads. This appears consistent with previous EKG from 2013 at the office. Computed tomography scan is negative for pulmonary embolism but does show right-sided hydronephrosis. BUN 15, creatinine 0.80 cardiac enzymes negative 3 triglycerides 79, total cholesterol 252, LDL 186, HDL 50. Recent echo done in the office reveals preserved LV function with EF 60 % done in October. Her current cardiac medications include hydrochlorothiazide 12.5 mg daily and atenolol 50 mg daily. Patient states she is supposed to take simvastatin 20 mg daily but her pharmacy stopped filling it. Review of Systems Extensive review of systems performed, negative except mentioned in HPI. Past Medical History Past Medical History: Asthma, Coronary Artery Disease (CAD), COPD, CVA/TIA, Diabetes Mellitus, GERD/Reflux, Hyperlipidemia, Hypertension, Pneumonia, Rheumatoid Arthritis (RA), Skin Disorder, Thyroid Disorder Additional Past Medical History / Comment(s): only 1 functioning kidney, hx of colon polyps,eczema, PAST AFIB.bronchitis, diet controlled dm. past radioactive tx for thyroid. History of Any Multi-Drug Resistant Organisms: None Reported Past Surgical History: Bladder Surgery, Heart Catheterization, Hysterectomy, Orthopedic Surgery Additional Past Surgical History / Comment(s): lasik eye sx, past cardioversion , sx for ruptured fallopian tube,cononosopy/polypectomy, rt knee sx for torn acl /debreidment, laparoscopy for endometreosis. 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 Marital status: lives with Medications and Allergies Home Medications Medication Instructions Recorded Confirmed Type Albuterol Nebulized [Ventolin 2.5 mg INHALATION RT-QID PRN 02/21/14 07/17/17 History Nebulized] Budesonide [Pulmicort] 0.5 mg INHALATION RT-BID PRN 02/21/14 07/17/17 History Hydrochlorothiazide [Hydrodiuril] 12.5 mg PO DAILY 02/21/14 07/17/17 History hydrOXYzine HCL 10 mg PO HS 02/21/14 07/17/17 History Atenolol [Tenormin] 50 mg PO DAILY 01/11/17 07/17/17 History Hydrocortisone Oint 1 applic TOPICAL BID PRN 01/11/17 07/17/17 History [Hydrocortisone 2.5% Oint] Levothyroxine Sodium [Synthroid] 88 mcg PO DAILY 01/11/17 07/17/17 History Betamethasone Dipropionate 1 applic TOPICAL BID 07/17/17 07/17/17 History [Diprolene AF 0.05% Cream] Vits A,C,E/Lutein/Minerals 1 tab PO DAILY 07/17/17 07/17/17 History [Ocuvite with Lutein Tablet] Allergies Allergy/AdvReac Type Severity Reaction Status Date / Time Antihistamines - Alkylamine Allergy Unknown Verified 07/17/17 15:30 Iodinated Contrast- Oral and Allergy Anaphylaxis Verified 07/17/17 15:30 IV Dye [Iodinated Contrast Media - IV Dye] lead Allergy Unknown Verified 07/17/17 15:30 aspirin AdvReac nosebleeds Verified 07/17/17 15:30 diphenhydramine HCl AdvReac Rapid Verified 07/17/17 15:30 [From [facility]] Heart Rate Physical Exam Vitals: Vital Signs Temp Pulse Pulse Pulse Resp BP BP 07/18/17 07:33 97.7 F 50 L 18 134/59 07/18/17 04:00 97.9 F 47 L 18 140/72 07/18/17 03:48 18 07/18/17 00:00 97.9 F 49 L 18 144/65 07/17/17 23:56 18 07/17/17 20:47 07/17/17 20:00 18 07/17/17 18:33 07/17/17 18:08 97.7 F 52 L 18 140/62 07/17/17 17:43 97.0 F L 52 L 18 150/70 07/17/17 15:45 60 07/17/17 15:39 56 L 18 129/64 07/17/17 15:04 97.6 F 60 20 188/86 Pulse Ox 07/18/17 07:33 99 07/18/17 04:00 98 07/18/17 03:48 07/18/17 00:00 100 07/17/17 23:56 07/17/17 20:47 96 07/17/17 20:00 07/17/17 18:33 96 07/17/17 18:08 100 07/17/17 17:43 07/17/17 15:45 07/17/17 15:39 96 07/17/17 15:04 95 Intake and Output 07/17/17 07/18/17 07/18/17 22:59 06:59 14:59 Other: Voiding Method Toilet Toilet # Voids 1 Weight 88.9 kg GENERAL: This is a 61-year-old for chimeric and female in no apparent distress at the time of my examination. Obese. HEENT: Head is atraumatic, normocephalic. Pupils are equal, round. Sclerae anicteric. Conjunctivae are clear. Mucous membranes of the mouth are moist. Neck is supple. There is no jugular venous distention. No carotid bruit is heard. LUNGS: Clear to auscultation no wheezes, rales or rhonchi. No chest wall tenderness is noted on palpation or with deep breathing. HEART: Regular rate and rhythm with systolic ejection murmur at the base, no rubs or gallops. S1 and S2 heard. ABDOMEN: Soft, nontender. Bowel sounds are heard. No organomegaly noted. EXTREMITIES: 2+ peripheral pulses with no evidence of peripheral edema and no calf tenderness noted. NEUROLOGIC: Patient is awake, alert and oriented x3. Results 07/17/17 15:20 07/17/17 15:20 Cardiac Enzymes 07/17/17 07/17/17 07/17/17 Range/Units 15:20 15:20 22:15 AST 22 (14-36) U/L CK-MB (CK-2) 0.8 0.5 (0.0-2.4) ng/mL Troponin I <0.012 <0.012 (0.000-0.034) ng/mL 07/18/17 Range/Units 03:03 AST (14-36) U/L CK-MB (CK-2) 0.5 (0.0-2.4) ng/mL Troponin I <0.012 (0.000-0.034) ng/mL Coagulation 07/17/17 07/17/17 07/18/17 Range/Units 15:20 22:15 06:23 PT 11.2 (9.0-12.0) sec APTT 24.9 63.0 H 68.9 H (22.0-30.0) sec Lipids 07/18/17 Range/Units 06:23 Triglycerides 79 (<150) mg/dL Cholesterol 252 H (<200) mg/dL HDL Cholesterol 50 (40-60) mg/dL CBC 07/17/17 Range/Units 15:20 WBC 5.6 (3.8-10.6) k/uL RBC 4.55 (3.80-5.40) m/uL Hgb 12.7 (11.4-16.0) gm/dL Hct 39.4 (34.0-46.0) % Plt Count 169 (150-450) k/uL Comprehensive Metabolic Panel 07/17/17 Range/Units 15:20 Sodium 144 (137-145) mmol/L Potassium 3.9 (3.5-5.1) mmol/L Chloride 106 (98-107) mmol/L Carbon Dioxide 29 (22-30) mmol/L BUN 15 (7-17) mg/dL Creatinine 0.80 (0.52-1.04) mg/dL Glucose 103 H (74-99) mg/dL Calcium 9.6 (8.4-10.2) mg/dL AST 22 (14-36) U/L ALT 30 (9-52) U/L Alkaline Phosphatase 71 (38-126) U/L Total Protein 7.0 (6.3-8.2) g/dL Albumin 4.0 (3.5-5.0) g/dL Current Medications Generic Name Dose Route Start Last Admin Trade Name Freq PRN Reason Stop Dose Admin Acetaminophen 650 mg 07/17/17 16:26 07/17/17 20:06 Tylenol Tab PO 650 mg Q4HR PRN Administration Mild Pain Albuterol Sulfate 2.5 mg 07/17/17 19:00 Ventolin Nebulized INHALATION RT-QID PRN Shortness Of Breath Aspirin 81 mg 07/18/17 09:00 Aspirin PO DAILY [facility] Atenolol 50 mg 07/18/17 09:00 Tenormin PO DAILY ANDRÉS Baclofen 5 mg 07/17/17 22:00 07/17/17 22:37 Lioresal PO 5 mg TID ANDRÉS Administration Betamethasone Dipropionate 1 applic 07/17/17 21:00 07/17/17 20:06 Diprolene Af TOPICAL 1 applic BID ANDRÉS Administration Budesonide 0.5 mg 07/17/17 19:00 Pulmicort INHALATION RT-BID PRN Shortness Of Breath Diclofenac Sodium 4 gm 07/17/17 22:00 07/17/17 22:33 Voltaren Gel TOPICAL 4 gm QID ANDRÉS Administration Hydrochlorothiazide 12.5 mg 07/18/17 09:00 Hydrodiuril PO DAILY [facility] Hydroxyzine HCl 10 mg 07/17/17 21:00 07/17/17 20:05 Atarax PO 10 mg HS ANDRÉS Administration Heparin Sodium/Dextrose 25,000 500 mls @ 19.59 mls/hr 07/17/17 16:30 16:43 unit/ IV Solution IV 12 units/kg/hr .Q24H ANDRÉS 19.59 mls/hr Protocol Administration 12 UNITS/KG/HR Sodium Chloride 1,000 mls @ 20 mls/hr 07/17/17 16:26 07/17/17 16:46 Saline 0.9% IV 07/18/17 16:25 20 mls/hr .Q24H ONE Administration Levothyroxine Sodium 88 mcg 07/18/17 06:30 07/18/17 04:54 Synthroid PO 88 mcg 0630 ANDRÉS Administration Miscellaneous Information 1 each 07/17/17 20:25 Rx Info: Iv Contrast Was Given MISCELLANE 07/19/17 20:25 DAILY PRN Per Protocol Multivitamins/Minerals 1 each 07/18/17 12:00 Ivite PO 1200 ANDRÉS Nitroglycerin 0.4 mg 07/17/17 15:15 07/17/17 15:36 Nitrostat SUBLINGUAL 0.4 mg Q5M PRN Administration Chest Pain Triamcinolone Acetonide 1 applic 07/17/17 19:00 Kenalog TOPICAL BID PRN Skin Irritation Intake and Output 07/17/17 07/18/17 07/18/17 22:59 06:59 14:59 Other: Voiding Method Toilet Toilet # Voids 1 Weight 88.9 kg 07/17/17 15:20 07/17/17 15:20 EKG Interpretations (text) EKG reveals sinus mechanism with nonspecific T-wave abnormality. This appears consistent with previous EKG performed in the office in 2013. Assessment and Plan Plan: ASSESSMENT 1. Chest pain, atypical 2. Essential hypertension 3. History of paroxysmal atrial fibrillation with successful cardioversion 4. Hyperlipidemia 5. Obesity 6. Bradycardia on beta makayla PLAN Obtain 2-D echo and Doppler study to assess LV structure and function. Perform dobutamine stress echo to rule out acute coronary event. Per office records patient should be taking atorvastatin 20 mg by mouth daily. We will restart that medication. Decrease atenolol to 25 mg daily. Recommend lifestyle modifications diet and exercise. This testing is normal from a cardiac perspective the patient is stable for discharge home. She can follow-up with Dr. Mulligan in 2 weeks time. Nurse Practitioner note has been reviewed, I agree with a documented findings and plan of care. Patient was seen and examined.
[2017-07-18] MEDS: BACLOFEN 10 MG TAB PO SCH (10:29)
[2017-07-18] MEDS: DICLOFENAC SODIUM GEL 100 GM TUBE TOPICAL SCH ×2 (10:35→14:34)
--- NOTE | 2017-07-18 11:24 | ECHOS ---
STRESS ECHOCARDIOGRAM INDICATIONS: Chest pain. BASELINE HEART RATE: 50 BASELINE BLOOD PRESSURE: 142/84 MAXIMUM HEART RATE: 126 MAXIMUM BLOOD PRESSURE: 179/79 85% MPHR: 134 100% MPHR: 158 MAXIMUM STAGE REACHED: 6 TOTAL EXERCISE TIME: 17:45 CLINICAL INFORMATION: Baseline EKG shows sinus rhythm, normal axis, normal intervals. Patient was given 2 g dobutamine over a period of 14 minutes as per protocol. Did not have chest pain or diagnostic ST-segment depression. Patient could only obtain 80% of predicted maximal heart rate. We could not give her atropine because of glaucoma. At 82% of predicted maximal heart rate there were no EKG changes. There was a run of idioventricular rhythm noted at the end of the test. Baseline echo shows normal left ventricular size, wall motion, and systolic function. Post dobutamine infusion, there was no evidence of dobutamine induced wall motion abnormalities. CONCLUSION: Negative dobutamine echo at 80% of predicted maximal heart rate. This is an inconclusive test. MMODL / IJN: [id number] /
[2017-07-18 11:25] VITALS: BMI 31.4
--- NOTE | 2017-07-18 11:26 | ECHOF ---
Referral Reason:chest pain MEASUREMENTS -------- HEIGHT: 165.1 cm WEIGHT: 88.9 kg BP: RVIDd: 2.8 cm (< 3.3) IVSd: 0.9 cm (0.6 - 1.1) LVIDd: 4.6 cm (3.9 - 5.3) LVPWd: 1.0 cm (0.6 - 1.1) IVSs: 1.4 cm LVIDs: 3.4 cm LVPWs: 1.2 cm LAESV Index (A-L): 25.27 ml/m Ao Diam: 2.7 cm (2.0 - 3.7) AV Cusp: 1.8 cm (1.5 - 2.6) LA Diam: 3.7 cm (2.7 - 3.8) MV EXCURSION: 21.518 mm (> 18.000) MV EF SLOPE: 65 mm/s (70 - 150) EPSS: 0.2 cm MV E Damir: 0.85 m/s MV DecT: 259 ms MV A Damir: 0.99 m/s MV E/A Ratio: 0.86 RAP: 5.00 mmHg RVSP: 22.13 mmHg FINDINGS -------- Undetermined rhythm. This was a technically good study. LV size, wall thickness and systolic function are normal, with an EF greater than 55%. The left ventricular size is normal. The right ventricle is normal in size. Normal LA size by volume 22+/-6 ml/m2. The right atrial size is normal. The aortic valve is trileaflet, and appears structurally normal. No aortic stenosis or regurgitation. Mild mitral regurgitation is present. Mild tricuspid regurgitation present. There is no evidence of pulmonary hypertension. The right ventricular systolic pressure, as measured by Doppler, is 22.13mmHg. There is no pulmonic regurgitation present. The aortic root size is normal. There is no pericardial effusion. CONCLUSIONS -------- 1. LV size, wall thickness and systolic function are normal, with an EF greater than 55%. 2. There is no pericardial effusion. 3. The left ventricular size is normal. 4. The aortic valve is trileaflet, and appears structurally normal. No aortic stenosis or regurgitation. 5. Mild mitral regurgitation is present. 6. Mild tricuspid regurgitation present. 7. There is no evidence of pulmonary hypertension. 8. The right ventricular systolic pressure, as measured by Doppler, is 22.13mmHg. 9. There is no pulmonic regurgitation present. 10. The aortic root size is normal. MANAGER VIDEO GAMES: Manju Tovar RDCS
[2017-07-18 11:36] VITALS: BP 107/42; PULSE 53; TEMP 97.3
[2017-07-18] MEDS: BETAMETHASONE DIPROPIONATE 0.05% CREAM 15 GM TUBE TOPICAL SCH (11:48)
[2017-07-18] MEDS ORDERED: VIT A,C & E-LUTEIN-MINERALS 1 EACH TAB PO SCH (12:00)
[2017-07-18] MEDS ORDERED: NAPROXEN 250 MG TAB PO SCH (13:15)
--- NOTE | 2017-07-19 05:54 | DS ---
DISCHARGE SUMMARY DATE OF ADMISSION: 07/17/2017 DATE OF DISCHARGE: 07/18/2017 FINAL DIAGNOSES: 1. Acute right-sided chest wall posterior pain musculoskeletal with possible radiculopathy. 2. Chronic intermittent asthma, stable. 3. Hypothyroid. 4. Gastroesophageal reflux disease. 5. Hyperlipidemia. 6. Essential hypertension. 7. Rheumatoid arthritis, chronic. 8. Only one functional kidney with chronic hydronephrosis. 9. Paroxysmal atrial fibrillation, currently in sinus rhythm. 10.Chronic congestive heart failure from preserved left ventricular function, ejection fraction 55%. HOSPITAL COURSE: This patient presented with sudden pain in the right chest wall more present posteriorly, was found to have tenderness along the scapula, quite tender, with limited range of motion of the right arm. [place] to be musculoskeletal. Did feel better after she was given some antispasmodic. Seen by Cardiology who did a dobutamine stress echocardiogram and cleared by them to go home. CT scan of the chest did show some chronic changes in both the lungs. Seems that patient had followed with Dr. Del Cid in the past. I did speak to the patient at length and she will follow up with Dr. Del Cid as an outpatient. Patient's LDL did come back at 186. DISCHARGE MEDICATIONS: 1. Ventolin 2.5 q.i.d. p.r.n. 2. Pulmicort 0.5 nebulizer b.i.d. 3. Hydrochlorothiazide 12.5 p.o. daily. 4. Hydroxyzine 10 mg p.o. q.h.s. 5. Hydrocortisone 2.5, topical b.i.d. p.r.n. 6. Synthroid 88 mcg a day. 7. Diprolene 0.05% cream topical b.i.d. 8. Ocuvite with lutein 1 tablet p.o. daily. 9. Aspirin 81 mg p.o. daily. 10.Tenormin 25 mg p.o. daily. 11.Lipitor 20 mg p.o. daily. 12.Baclofen 5 mg p.o. q.6 p.r.n. for muscle spasm. 13.Voltaren Gel 2 to 4 gram topical q.i.d. at muscle spasm site. 14.Naproxen 250 mg p.o. b.i.d., 14 tablets. 15.Nitrostat p.r.n. Follow up with Dr. Rosa Mulligan in 2 weeks; Dr. Leyva in 3 days; Dr. Del Cid in [address] scan. Discussion discharge planning more than 35 minutes. Patient also advised to use a heating pad. ON EXAMINATION: LUNGS: Slightly decreased breath sounds. CARDIOVASCULAR: First and second sounds normal. Tenderness over the medial aspect of the scapula. Discharge planning more than 35 minutes. MMODL / IJN: [id number] /
[2017-07-19] MEDS ORDERED: ATENOLOL 25 MG TAB PO SCH (09:00)
== END 2017-07-18 15:25 | disposition home or self-care (01) ==
LOC: EC 14:46 → 3OBS 16:26
PROVIDERS: ADMIT Hospitalist; ATTEND Hospitalist
DX: R07.89 Other chest pain (principal); M06.9 Rheumatoid arthritis, unspecified; K21.9 Gastro-esophageal reflux disease without esophagitis; J44.9 Chronic obstructive pulmonary disease, unspecified; I25.10 Atherosclerotic heart disease of native coronary artery without angina pectoris; I11.0 Hypertensive heart disease with heart failure; I50.32 Chronic diastolic (congestive) heart failure; E78.5 Hyperlipidemia, unspecified; E11.9 Type 2 diabetes mellitus without complications; R00.1 Bradycardia, unspecified; J45.20 Mild intermittent asthma, uncomplicated; E03.9 Hypothyroidism, unspecified; N39.3 Stress incontinence (female) (male); I48.0 Paroxysmal atrial fibrillation; N13.30 Unspecified hydronephrosis; E66.9 Obesity, unspecified; N28.89 Other specified disorders of kidney and ureter; Z87.891 Personal history of nicotine dependence; Z79.899 Other long term (current) drug therapy; Z88.8 Allergy status to other drugs, medicaments and biological substances; Z88.6 Allergy status to analgesic agent; Z91.041 Radiographic dye allergy status; Z86.73 Personal history of transient ischemic attack (TIA), and cerebral infarction without residual deficits; Z68.31 Body mass index [BMI] 31.0-31.9, adult
CPT/HCPCS: 96366 ×2; 96375; 96376; 96365; 99285; 36415; 94760; 93005; 93017; 93306; 93350; 80061; 80053; 82550 ×2; 82553 ×2; 83735; 84484 ×2; 85025; 85610; 85730 ×2; 71020; 71275; G0378 ×2; J1250; J1200; J1644 ×2; J2930; Q9967

== ENCOUNTER → 2017-08-21 | Outpatient (CLI) | payer MEDICARE, OTHER ==
--- NOTE | 2017-08-21 13:24 | CT ---
EXAMINATION TYPE: CT chest wo con DATE OF EXAM: 08/21/2017 COMPARISON: 07/17/2017 HISTORY: High Resolution Protocol. Patient complains of difficulty breathing and periodic cough. CT DLP: 649.8 mGycm. Automated Exposure Control for Dose Reduction was Utilized. TECHNIQUE: CT scan of the thorax is performed without IV contrast in the high resolution CT protocol in the supine and prone positions.. FINDINGS: LUNGS: There is marked improvement in the previously seen interstitial prominence in comparison to th e prior exam representing either resolving infectious etiology, inflammatory etiology or fluid overlo ad. Minimal dependent areas of atelectasis are seen anteriorly in the supine images and posteriorly a nd prone images. Vague subpleural reticular opacity is seen in the right middle lobe and to a lesser degree within the lower lobes on supine imaging that again is favored to relate to atelectasis. No pulmonary emphysema tous changes are seen. No bronchiectasis. No peribronchial cuffing. No mucus plugging. No pulmonary c ystic changes. No tracheobronchial dilation. Central airways are patent. The lungs are grossly clear, there is no concerning parenchymal mass or nodule identified. There is no pleural effusion or pneu mothorax seen. MEDIASTINUM: The main pulmonary artery is enlarged measuring 3.4 cm as are the right and left pulmona ry arteries. This may clinically correlate with pulmonary arterial hypertension. Mild calcific athero matous changes are appreciated of the aortic arch. Lack of IV contrast is noted to limit evaluation f or mediastinal and especially hilar adenopathy. There are no definitive greater than 1 cm hilar or me diastinal lymph nodes. No cardiomegaly or pericardial effusion is seen. OTHER: Similar hepatic lesions are favored to represent hepatic cysts as they measure Hounsfield unit s of fluid on the prior examination. IMPRESSION: 1. Marked improvement in the previously seen interstitial opacities that may have related to infectio us or inflammatory interstitial airspace disease or fluid overload. 2. Positional dependent subsegmental atelectasis. 3. No evidence of interstitial lung disease or pulmonary fibrosis. 4. Enlargement of the main pulmonary artery, which may clinically correlate with pulmonary arterial h ypertension. 5. Resolution of the previously seen mediastinal adenopathy.
== END | disposition home or self-care (01) ==
LOC: RADCTMAIN 10:40
PROVIDERS: ATTEND Internal Medicine Critical Care Medicine
DX: J98.11 Atelectasis (principal); I28.8 Other diseases of pulmonary vessels; R91.8 Other nonspecific abnormal finding of lung field
CPT/HCPCS: 71250

== ENCOUNTER → 2018-05-10 | Outpatient (CLI) | payer MEDICARE, OTHER ==
[2018-05-10 15:11] LABS: Appearance,Urine Clear (Clear); Bacteria,Urine Rare /hpf; Bilirubin,Urine Negative (Negative); Blood,Urine Negative (Negative); Color,Urine Yellow; Glucose,Urine (UA) Negative (Negative); Ketones,Urine Negative (Negative); Leukocyte Esterase,Urine Moderate (Negative); Mucus,Urine Rare /hpf; Nitrite,Urine Negative (Negative); PH, Urine 6.5 (5.0-8.0); Protein,Urine Negative (Negative); RBC,Urine 8 /hpf (0-5); Specific Gravity,Urine 1.015 (1.001-1.035); Squamous Epithelial Cell,Urine 1 /hpf (0-4); Urobilinogen,Urine <2.0 mg/dL (<2.0); WBC,Urine 16 /hpf (0-5)
[2018-05-10 15:13] LABS: Anion Gap 8 mmol/L; Blood Urea Nitrogen 12 mg/dL (7-17); Carbon Dioxide 28 mmol/L (22-30); Chloride 106 mmol/L (98-107); Glucose 90 mg/dL (74-99); Potassium 4.4 mmol/L (3.5-5.1); Sodium 142 mmol/L (137-145)
== END | disposition home or self-care (01) ==
LOC: LABWHC1 14:06
PROVIDERS: ATTEND Nurse Practitioner Family
DX: N20.0 Calculus of kidney (principal); N39.0 Urinary tract infection, site not specified
CPT/HCPCS: 36415; 80048; 81001; 82306

== ENCOUNTER 2018-08-25 16:59 | Observation (INO) | payer MEDICARE, OTHER ==
[2018-08-25 17:31] LABS: Basophils % (A) 0 %; Eosinophils # (A) 0.1 k/uL (0-0.7); Eosinophils % (A) 2 %; HCT 36.7 % (34.0-46.0); HGB 11.8 gm/dL (11.4-16.0); Lymphocytes # (A) 1.3 k/uL (1.0-4.8); Lymphocytes % (A) 31 %; MCH 26.7 pg (25.0-35.0); MCHC 32.2 g/dL (31.0-37.0); MCV 82.9 fL (80.0-100.0); Mean Platelet Volume 8.1; Monocytes # (A) 0.2 k/uL (0-1.0); Monocytes % (A) 6 %; Neutrophils # (A) 2.4 k/uL (1.3-7.7); Neutrophils % (A) 59 %; Platelet Count 173 k/uL (150-450); RBC 4.42 m/uL (3.80-5.40); RDW 13.8 % (11.5-15.5); WBC 4.2 k/uL (3.8-10.6)
[2018-08-25 17:42] LABS: ALT 30 U/L (9-52); AST 31 U/L (14-36); Albumin 4.2 g/dL (3.5-5.0); Alkaline Phosphatase 53 U/L (38-126); Anion Gap 7 mmol/L; Blood Urea Nitrogen 14 mg/dL (7-17); Calcium 9.9 mg/dL (8.4-10.2); Carbon Dioxide 29 mmol/L (22-30); Chloride 107 mmol/L (98-107); Glucose 78 mg/dL (74-99); INR 1.1 (<1.2); Partial Thromboplastin Time 23.8 sec (22.0-30.0); Potassium 4.1 mmol/L (3.5-5.1); Prothrombin Time 10.8 sec (9.0-12.0); Sodium 143 mmol/L (137-145); Total Bilirubin 0.4 mg/dL (0.2-1.3); Total Protein 7.2 g/dL (6.3-8.2)
[2018-08-25 17:46] LABS: Creatine Kinase 195 U/L (30-135)
--- NOTE | 2018-08-25 17:48 | ED ---
Chest Pain HPI - General Chief Complaint: Chest Pain Stated Complaint: Chest Pain Time Seen by Provider: 08/25/18 17:11 Source: patient, RN notes reviewed Mode of arrival: wheelchair Limitations: no limitations - History of Present Illness Initial Comments: 63-year-old female presents emergency Department chief complaint of chest pain. Patient states she's had pain in her chest a left-sided primarily over the last 4 days. It is intermittent and states that she gets random sharp stabbing pains that radiate towards her shoulder and arm region. Patient does have a history of A. fib, hyperlipidemia, hypertension and borderline diabetes. Patient states that when the pain, she feels short of breath but she has no resting shortness of breath. Patient denies any leg swelling out of the usual. Patient states that she has had a heart cath in the past, has a history of COPD. Patient states that she is currently being seen by Dr. Bowling for abnormal swelling which I believe is related to her symptoms patient denies any recent URI symptoms. Patient denies trying her nitro for chest pain that she is scared to take it. Patient states she has an ALLERGY to aspirin - Related Data Home Medications Medication Instructions Recorded Confirmed Albuterol Nebulized [Ventolin 2.5 mg INHALATION RT-QID PRN 02/21/14 08/25/18 Nebulized] Budesonide [Pulmicort] 0.5 mg INHALATION RT-BID PRN 02/21/14 08/25/18 Hydrochlorothiazide [Hydrodiuril] 12.5 mg PO DAILY 02/21/14 08/25/18 hydrOXYzine HCL 10 mg PO HS 02/21/14 08/25/18 Hydrocortisone Oint 1 applic TOPICAL BID PRN 01/11/17 08/25/18 [Hydrocortisone 2.5% Oint] Levothyroxine Sodium [Synthroid] 88 mcg PO DAILY 01/11/17 08/25/18 Vits A,C,E/Lutein/Minerals 1 tab PO DAILY 07/17/17 08/25/18 [Ocuvite with Lutein Tablet] Biotin 5 mg PO DAILY 08/25/18 08/25/18 Cetirizine HCl [Zyrtec] 10 mg PO DAILY 08/25/18 08/25/18 Cholecalciferol [Vitamin D3] 1,000 unit PO DAILY 08/25/18 08/25/18 Multivitamins, Thera [Multivitamin 1 tab PO DAILY 08/25/18 08/25/18 (formulary)] Triamcinolone 0.1% Cream [Kenalog 1 applicatio TOPICAL BID PRN 08/25/18 08/25/18 0.1% Cream] Previous Rx's Medication Instructions Recorded Atenolol [Tenormin] 25 mg PO DAILY #30 tab 07/18/17 Nitroglycerin Sl Tabs [Nitrostat] 0.4 mg SUBLINGUAL Q5M PRN #20 tab 07/18/17 Allergies Allergy/AdvReac Type Severity Reaction Status Date / Time Antihistamines - Alkylamine Allergy Unknown Verified 08/25/18 17:44 Iodinated Contrast- Oral and Allergy Anaphylaxis Verified 08/25/18 17:44 IV Dye [Iodinated Contrast Media - IV Dye] lead Allergy Unknown Verified 08/25/18 17:44 aspirin AdvReac nosebleeds Verified 08/25/18 17:44 diphenhydramine HCl AdvReac Rapid Verified 08/25/18 17:44 [From Benadryl] Heart Rate Review of Systems ROS Statement: Those systems with pertinent positive or pertinent negative responses have been documented in the HPI. ROS Other: All systems not noted in ROS Statement are negative. EKG Findings - EKG Comments: EKG Findings:: EKG performed at 17:13 sinus bradycardia noted inverted T waves V2, rate of 58 CA 178 QRS 80 QT/QTC 432/424 Past Medical History Past Medical History: Asthma, Coronary Artery Disease (CAD), COPD, CVA/TIA, Diabetes Mellitus, GERD/Reflux, Hyperlipidemia, Hypertension, Pneumonia, Rheumatoid Arthritis (RA), Skin Disorder, Thyroid Disorder Additional Past Medical History / Comment(s): only 1 functioning kidney, hx of colon polyps,eczema, PAST AFIB.bronchitis, diet controlled dm. past radioactive tx for thyroid. History of Any Multi-Drug Resistant Organisms: None Reported Past Surgical History: Bladder Surgery, Heart Catheterization, Hysterectomy, Orthopedic Surgery Additional Past Surgical History / Comment(s): lasik eye sx, past cardioversion , sx for ruptured fallopian tube,cononosopy/polypectomy, rt knee sx for torn acl /debreidment, laparoscopy for endometreosis. 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 Marital status: lives with General Exam Limitations: no limitations General appearance: alert, in no apparent distress Head exam: Present: atraumatic, normocephalic, normal inspection Eye exam: Present: normal appearance, PERRL, EOMI. Absent: scleral icterus, conjunctival injection, periorbital swelling ENT exam: Present: normal exam, normal oropharynx, mucous membranes moist Neck exam: Present: normal inspection, full ROM. Absent: tenderness, meningismus, lymphadenopathy Respiratory exam: Present: normal lung sounds bilaterally, chest wall tenderness. Absent: respiratory distress, wheezes, rales, rhonchi, stridor Cardiovascular Exam: Present: regular rate, normal rhythm, normal heart sounds. Absent: systolic murmur, diastolic murmur, rubs, gallop, clicks GI/Abdominal exam: Present: soft, normal bowel sounds. Absent: distended, tenderness, guarding, rebound, rigid Skin exam: Present: warm, dry, intact, normal color. Absent: rash Course Vital Signs 08/25/18 08/25/18 17:03 17:53 Temperature 97.8 F Pulse Rate 59 L 60 Respiratory 20 16 Rate Blood Pressure 170/81 145/65 O2 Sat by Pulse 99 97 Oximetry Chest Pain MDM - MDM This a 63-year-old female presented to emergency department with chief complaint of chest pain. Patient does have multiple risk factors including hypertension, hyperlipidemia, diabetes from her smoker. Patient will be admitted hospital on heparin low-dose, repeat cardiac enzymes and cardiac evaluation. Disposition Clinical Impression: Chest pain Disposition: ADMITTED IP TO THIS HOSP Condition: Stable Referrals: Roe Leyva MD [Primary Care Provider] - 1-2 days
[2018-08-25 17:58] LABS: Creatine Kinase MB <0.2 ng/mL (0.0-2.4); Troponin I <0.012 ng/mL (0.000-0.034)
--- NOTE | 2018-08-25 18:12 | XR ---
EXAMINATION TYPE: XR chest 2V DATE OF EXAM: 08/25/2018 COMPARISON: CT thorax 08/21/2017 HISTORY: Dyspnea and chest pain TECHNIQUE: Frontal and lateral views of the chest are obtained. FINDINGS: There is no focal air space opacity, pleural effusion, or pneumothorax seen. Diffuse incr eased interstitial markings are unchanged. The cardiac silhouette size is within normal limits. The osseous structures are intact. IMPRESSION: No acute cardiopulmonary process. Stable diffuse increased interstitial markings.
[2018-08-25] MEDS ORDERED: MORPHINE SULFATE 2 MG/ML SYRINGE IVP ONE (18:13)
[2018-08-25] MEDS ORDERED: ONDANSETRON 4 MG/2 ML VIAL IVP STA (18:13)
[2018-08-25] MEDS ORDERED: NITROGLYCERIN SL TABS 0.4 MG TAB SUBLINGUAL STA (18:13)
[2018-08-25] MEDS ORDERED: NITROGLYCERIN SL TABS 0.4 MG TAB SUBLINGUAL PRN (18:14)
[2018-08-25] MEDS ORDERED: HEPARIN SODIUM,PORCINE 5,000 UNIT/ML 1 ML VIAL IV ONE (18:14)
[2018-08-25] MEDS: HEPARIN SOD,PORK IN 0.45% NACL 25,000 UNIT in 0.45% NACL 1 500ML.BAG IV SCH (18:43)
[2018-08-25] MEDS: BUDESONIDE 0.5 MG/2 ML NEBU INHALATION PRN (20:19)
[2018-08-25] MEDS: ALBUTEROL NEBULIZED 2.5 MG/3 ML INHALATION PRN (20:19)
[2018-08-25 20:48] VITALS: BMI 31.8
[2018-08-25] MEDS: HYDROcodone/APAP 5-325MG 1 EACH TAB PO PRN (21:34)
[2018-08-25] MEDS: hydrOXYzine HCL 10 MG TAB PO SCH (22:02)
[2018-08-26 00:02] LABS: Creatine Kinase 177 U/L (30-135)
[2018-08-26 00:16] LABS: Creatine Kinase MB 0.2 ng/mL (0.0-2.4); Troponin I <0.012 ng/mL (0.000-0.034)
[2018-08-26] MEDS: HYDROcodone/APAP 5-325MG 1 EACH TAB PO PRN ×3 (01:18→08:10)
[2018-08-26] MEDS: LEVOTHYROXINE 88 MCG TAB PO SCH (05:34)
[2018-08-26 06:13] LABS: Mean Platelet Volume 7.7; Platelet Count 165 k/uL (150-450)
[2018-08-26 06:33] LABS: Creatine Kinase 140 U/L (30-135)
[2018-08-26 06:46] LABS: Creatine Kinase MB 0.3 ng/mL (0.0-2.4); Troponin I <0.012 ng/mL (0.000-0.034)
[2018-08-26] MEDS: BUDESONIDE 0.5 MG/2 ML NEBU INHALATION PRN ×2 (07:50→20:02)
[2018-08-26] MEDS: ALBUTEROL NEBULIZED 2.5 MG/3 ML INHALATION PRN ×2 (07:50→20:02)
[2018-08-26 09:32] LABS: Cholesterol 220 mg/dL (<200); HDL Cholesterol 37 mg/dL (40-60); LDL Cholesterol,Calculated 137 mg/dL (0-99); Triglycerides 231 mg/dL (<150)
--- NOTE | 2018-08-26 10:18 | CT ---
EXAMINATION TYPE: CT chest wo con DATE OF EXAM: 08/26/2018 COMPARISON: Previous high-resolution CT scan of the chest dated 08/21/2017 HISTORY: Lt chest pain CT DLP: 319.2 mGycm. Automated Exposure Control for Dose Reduction was Utilized. TECHNIQUE: CT scan of the thorax is performed without IV contrast. FINDINGS: There are small, bilateral effusions. There is dependent atelectasis in the dependent porti ons of the lungs. There are scattered groundglass opacities throughout both lungs. This may represent alveolitis or atypical pneumonia such as UIP. No parenchymal masses are seen. There is no significant axillary, internal mammary, hilar or mediastinal adenopathy. The heart is mil dly enlarged. There is no pericardial fluid. The aorta is normal in caliber with minor calcification. Visualized portions of the upper abdomen are unremarkable. No bony lesion is seen. IMPRESSION: 1. SMALL, BILATERAL EFFUSIONS. 2. SCATTERED GROUNDGLASS OPACITIES THROUGHOUT BOTH LUNGS MAY REFLECT AREAS OF ALVEOLITIS OR ATYPICAL PNEUMONIA. 3. CARDIOMEGALY.
[2018-08-26] MEDS: ATENOLOL 25 MG TAB PO SCH (10:50)
[2018-08-26] MEDS: HYDROCHLOROTHIAZIDE 12.5 MG CAP PO SCH (11:02)
--- NOTE | 2018-08-26 12:14 | CONS ---
CONSULTATION HISTORY: Mrs. Edward is a 63-year-old female who came to the emergency room with a complaint of chest pain. Patient gives a history that she has been having some left-sided chest discomfort for the last 4 days. The patient the pain is intermittent. It is a sharp stabbing pain, not related to exertion. The patient denies any cough with expectoration or shortness of breath. The patient does have a past history of hypertension, borderline diabetes, possible atrial fibrillation. The patient's physical activities are limited. She also has a history of generalized chronic discomfort. The patient had a cardiac catheterization done in the past which was normal. Patient also has a history of COPD. HOME MEDICATIONS: Include Ventolin, Pulmicort, hydroxyzine, Zyrtec, atenolol 25 mg daily, nitroglycerin p.r.n. REVIEW OF THE SYSTEM: Otherwise unremarkable. PAST MEDICAL HISTORY: History of questionable TIA, history of COPD, diabetes, history of rheumatoid arthritis, skin disorder. Prior cardiac catheterization did not show any significant cardiac disease. Patient has a past history of cardioversion and orthopedic surgery. PHYSICAL EXAMINATION: At present reveals a 63-year-old female who does not appear to be in any acute distress. In the emergency room, patient's blood pressure initially was 170/81, heart rate was 60 per minute. The patient's blood pressure now is 130/81 mmHg, heart rate is 54 per minute. Head and ENT examination is negative. Neck is supple. There is no increase in jugular venous pressure. Both the carotid pulses are felt. There is no bruit. Chest is symmetrical. Heart, the PMI is not felt. First and second heart sounds are normal. There is no evidence of any murmur. Lungs reveal bilateral coarse what appear to be fibrotic rales. Abdomen is negative. Extremities peripheral pulsations are 2+. The patient's LDL level is 137, HDL level , triglycerides are 231. EKG shows normal sinus rhythm without any acute ischemic changes. FINAL IMPRESSION: This patient has been admitted with atypical chest pain. EKGs and cardiac enzymes are negative. The patient had a previous cardiac catheterization which was normal. The patient has a questionable history of prior atrial fibrillation, which needs to be confirmed and then the patient should be considered for anticoagulation. We will also order noncontrast CT of the chest to rule out any significant pulmonary fibrosis. MMODL / IJN: [id number] /
[2018-08-26] MEDS ORDERED: HYDROCORTISONE 1% OINT 28.35 GM TUBE TOPICAL PRN (12:46)
[2018-08-26] MEDS ORDERED: KETOROLAC 30 MG/ML 1 ML VIAL IVP PRN (12:50)
--- NOTE | 2018-08-26 13:24 | P.HPIM ---
History of Present Illness 63-year-old pleasant female came in with compensative chest pain has been going on for 4 days constant sharp stabbing in nature moderate to severe nonradiating. This is a some shortness of breath. Patient denied any cough. Unsure why but patient had a CAT scan of the chest without contrast which showed some all year light is in mild bilateral pleural effusions. Patient denied any fever. Unsure of the etiology of probably a light as patient already is comparing of some shortness of breath patient does have history of asthma does follow all neurology because of which I'm consulted pulmonology regarding the cellulitis may be contributing to her shortness of breath which has been increasing recently denied any swelling in the legs denied any orthopnea proximal nocturnal dyspnea. Patient's chest pain has pleuritic competent because of which are pending a d-dimer which is minimally elevated than normal because of which I am not doing another CAT scan to rule out PE as the result it's only minimally elevated and the way suspicion is not very high for PE may have some pleurisy. Patient's pain is not related to food patient is also complaining of some crampy abdominal pain in in the lower abdomen denied any dysuria nausea vomiting.'s and have any fever chills. Review of Systems REVIEW OF SYSTEMS: CONSTITUTIONAL: No fever, no malaise, no fatigue. HEENT: No recent visual problems or hearing problems. Denied any sore throat. CARDIOVASCULAR: No orthopnea, PND, no palpitations, no syncope. PULMONARY: no cough, no hemoptysis. GASTROINTESTINAL: No diarrhea, no nausea, no vomiting, no abdominal pain. Normoactive bowel sounds. NEUROLOGICAL: No headaches, no weakness, no numbness. HEMATOLOGICAL: Denies any bleeding or petechiae. GENITOURINARY: Denies any burning micturition, frequency, or urgency. MUSCULOSKELETAL/RHEUMATOLOGICAL: Denies any joint pain, swelling, or any muscle pain. ENDOCRINE: Denies any polyuria or polydipsia. The rest of the 14-point review of systems is negative. Past Medical History Past Medical History: Atrial Fibrillation, Asthma, Coronary Artery Disease (CAD) , COPD, CVA/TIA, Diabetes Mellitus, GERD/Reflux, Hyperlipidemia, Hypertension, Pneumonia, Rheumatoid Arthritis (RA), Skin Disorder, Thyroid Disorder Additional Past Medical History / Comment(s): only 1 functioning kidney, hx of colon polyps,eczema, PAST AFIB.bronchitis, diet controlled dm. past radioactive tx for thyroid. History of Any Multi-Drug Resistant Organisms: None Reported Past Surgical History: Bladder Surgery, Heart Catheterization, Hysterectomy, Orthopedic Surgery Additional Past Surgical History / Comment(s): lasik eye sx, past cardioversion , sx for ruptured fallopian tube,cononosopy/polypectomy, rt knee sx for torn acl /debreidment, laparoscopy for endometreosis. 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 Medications and Allergies Home Medications Medication Instructions Recorded Confirmed Type Albuterol Nebulized [Ventolin 2.5 mg INHALATION RT-QID PRN 02/21/14 08/25/18 History Nebulized] Budesonide [Pulmicort] 0.5 mg INHALATION RT-BID PRN 02/21/14 08/25/18 History Hydrochlorothiazide [Hydrodiuril] 12.5 mg PO DAILY 02/21/14 08/25/18 History hydrOXYzine HCL 10 mg PO HS 02/21/14 08/25/18 History Hydrocortisone Oint 1 applic TOPICAL BID PRN 01/11/17 08/25/18 History [Hydrocortisone 2.5% Oint] Levothyroxine Sodium [Synthroid] 88 mcg PO DAILY 01/11/17 08/25/18 History Vits A,C,E/Lutein/Minerals 1 tab PO DAILY 07/17/17 08/25/18 History [Ocuvite with Lutein Tablet] Atenolol [Tenormin] 25 mg PO DAILY #30 tab 07/18/17 08/25/18 Rx Nitroglycerin Sl Tabs [Nitrostat] 0.4 mg SUBLINGUAL Q5M PRN #20 tab 07/18/1708/02 Rx Biotin 5 mg PO DAILY 08/25/18 08/25/18 History Cetirizine HCl [Zyrtec] 10 mg PO DAILY 08/25/18 08/25/18 History Cholecalciferol [Vitamin D3] 1,000 unit PO DAILY 08/25/18 08/25/18 History Multivitamins, Thera [Multivitamin 1 tab PO DAILY 08/25/18 08/25/18 History (formulary)] Triamcinolone 0.1% Cream [Kenalog 1 applicatio TOPICAL BID PRN 08/25/18 History 0.1% Cream] Allergies Allergy/AdvReac Type Severity Reaction Status Date / Time Antihistamines - Alkylamine Allergy Unknown Verified 08/25/18 20:34 Iodinated Contrast- Oral and Allergy Anaphylaxis Verified 08/25/18 20:34 IV Dye [Iodinated Contrast Media - IV Dye] lead Allergy Unknown Verified 08/25/18 20:34 aspirin AdvReac nosebleeds Verified 08/25/18 20:34 diphenhydramine HCl AdvReac Rapid Verified 08/25/18 20:34 [From Benadryl] Heart Rate Physical Exam Vitals: Vital Signs Temp Pulse Pulse Resp BP BP Pulse Ox 08/26/18 12:00 97.8 F 61 16 123/71 100 08/26/18 10:58 113/59 08/26/18 08:06 59 L 08/26/18 08:00 97.9 F 54 L 18 130/81 98 08/26/18 07:51 58 L 97 08/26/18 04:00 98.0 F 63 16 132/66 97 08/26/18 00:00 98.1 F 76 18 148/67 97 08/25/18 20:38 58 L 08/25/18 20:24 100 08/25/18 20:23 53 L 08/25/18 20:00 97.8 F 72 18 154/65 96 08/25/18 17:53 60 16 145/65 97 08/25/18 17:03 97.8 F 59 L 20 170/81 99 Intake and Output 08/25/18 08/26/18 08/26/18 22:59 06:59 14:59 Other: # Voids 1 1 1 Weight 89.5 kg PHYSICAL EXAMINATION: GENERAL: The patient is alert and oriented x3, not in any acute distress. Well developed, well nourished. HEENT: Pupils are round and equally reacting to light. EOMI. No scleral icterus. No conjunctival pallor. Normocephalic, atraumatic. No pharyngeal erythema. No thyromegaly. CARDIOVASCULAR: S1 and S2 present. No murmurs, rubs, or gallops. Chest pain reproducible PULMONARY: Chest is clear to auscultation, no wheezing or crackles. ABDOMEN: Soft, nontender, nondistended, normoactive bowel sounds. No palpable organomegaly. MUSCULOSKELETAL: No joint swelling or deformity. EXTREMITIES: No cyanosis, clubbing, or pedal edema. NEUROLOGICAL: Gross neurological examination did not reveal any focal deficits. SKIN: No rashes. Results CBC & Chem 7: 08/26/18 05:55 08/25/18 17:18 Labs: Abnormal Lab Results - Last 24 Hours (Table) 08/25/18 08/25/18 08/25/18 Range/Units 17:18 23:22 23:22 APTT 68.2 H (22.0-30.0) sec D-Dimer (<0.60) mg/L FEU Total Creatine Kinase 195 H 177 H (30-135) U/L Triglycerides (<150) mg/dL Cholesterol (<200) mg/dL LDL Cholesterol, Calc (0-99) mg/dL HDL Cholesterol (40-60) mg/dL 08/26/18 08/26/18 08/26/18 Range/Units 05:55 05:55 05:55 APTT 53.3 H (22.0-30.0) sec D-Dimer (<0.60) mg/L FEU Total Creatine Kinase 140 H (30-135) U/L Triglycerides 231 H (<150) mg/dL Cholesterol 220 H (<200) mg/dL LDL Cholesterol, Calc 137 H (0-99) mg/dL HDL Cholesterol 37 L (40-60) mg/dL 08/26/18 Range/Units 12:50 APTT (22.0-30.0) sec D-Dimer 0.75 H (<0.60) mg/L FEU Total Creatine Kinase (30-135) U/L Triglycerides (<150) mg/dL Cholesterol (<200) mg/dL LDL Cholesterol, Calc (0-99) mg/dL HDL Cholesterol (40-60) mg/dL Thrombosis Risk Factor Assmnt - Choose All That Apply Each Risk Factor Represents 2 Points: Age 61-74 years Thrombosis Risk Factor Assessment Total Risk Factor Score: 2 Thrombosis Risk Factor Assessment Level: Low Risk Assessment and Plan Plan: Chest pain: Appears to be musculoskeletal or secondary to pleurisy. We'll rule out acute Syndromes Unstable Angina, Patient Was Evaluated by Cardiology Please Refer to the Documentation regarding the EKG Findings. Patient Had a Stress Test about Any Ago Which Was Negative. Patient Will Undergo Stress Test Tomorrow As Recommended by Cardiology -Asthma without Any Acute Exacerbation -Coronary Artery Disease in the past -CVA/TIA in the past -Alveolitis on the CAT Scan: Etiology is not clear. -Gastroesophageal reflux disease -Hypothyroidism Rheumatoid arthritis -Type 2 diabetes mellitus For above-mentioned chronic medical problems patient will be resumed on her appropriate home medications.
[2018-08-26] MEDS: MORPHINE SULFATE 4 MG/ML SYRINGE IVP PRN ×2 (14:46→20:18)
[2018-08-26] MEDS: HEPARIN SOD,PORK IN 0.45% NACL 25,000 UNIT in 0.45% NACL 1 500ML.BAG IV SCH (20:18)
[2018-08-26] MEDS: hydrOXYzine HCL 10 MG TAB PO SCH (21:22)
[2018-08-27] MEDS: LEVOTHYROXINE 88 MCG TAB PO SCH (05:34)
[2018-08-27 06:24] LABS: Mean Platelet Volume 7.7; Platelet Count 153 k/uL (150-450)
[2018-08-27 08:00] VITALS: RESP 16
[2018-08-27] MEDS: ALBUTEROL NEBULIZED 2.5 MG/3 ML INHALATION PRN ×2 (08:14→15:15)
[2018-08-27] MEDS: BUDESONIDE 0.5 MG/2 ML NEBU INHALATION PRN (08:14)
[2018-08-27] MEDS ORDERED: DOBUTamine DRIP for NUC MED 500 MG in DEXTROSE/WATER 1 250ML.BAG IV ONE (09:00)
[2018-08-27] MEDS ORDERED: LORATADINE 10 MG TAB PO SCH (09:00)
[2018-08-27] MEDS ORDERED: ATROPINE SULFATE 0.1 MG/ML 10ML SYRINGE ONE (11:40)
[2018-08-27] MEDS ORDERED: METOPROLOL TARTRATE 5 MG/5 ML VIAL IVP ONE (11:40)
[2018-08-27] MEDS: HYDROCHLOROTHIAZIDE 12.5 MG CAP PO SCH (12:26)
[2018-08-27] MEDS: ATENOLOL 25 MG TAB PO SCH (12:26)
[2018-08-27 12:43] VITALS: BP 130/61; TEMP 98.5
--- NOTE | 2018-08-27 13:26 | ECHOS ---
STRESS ECHOCARDIOGRAM DOBUTAMINE STRESS ECHOCARDIOGRAM DATE OF SERVICE: 08/27/2018 INDICATION OF THE STUDY: Chest discomfort. MEDICATIONS: BASELINE HEART RATE: 57 BASELINE BLOOD PRESSURE: 166/71 MAXIMUM HEART RATE: 157 MAXIMUM BLOOD PRESSURE: 210/92 85% MPHR: 133 100% MPHR: 156 METS: MAXIMUM STAGE REACHED: TOTAL EXERCISE TIME: CLINICAL INFORMATION: STRESS DATA: Pretesting physical examination showed a heart rate 57, pressure pressure is 166/71 mm Hg. Baseline EKG showed sinus mechanism. Dobutamine infusion at a dose of 10 mcg/kg per minute was initiated and increased to 40 mcg/kg per minute per protocol. We had to give the patient 2 mg of atropine to enhance the heart rate. With dobutamine and atropine, the patient achieved a max heart rate of 157, which is about 100% of maximum predicted heart rate. Maximum blood pressure was 210/92 mmHg. Clinically the patient did not have any symptoms of chest pain or discomfort. The EKG did show about [address]-segment changes without any findings consistent with ischemia. ECHOCARDIOGRAM IMAGES: On echocardiogram images from parasternal long axis view, parasternal short axis view, apical 4 chamber and apical 2 chamber view were obtained at the baseline images, at the peak of the heart rate, as well as on recovery. The echocardiogram images showed good augmentation in the left ventricular systolic function without any obvious wall motion abnormalities concerning for ischemia. CONCLUSION: 1. Mild EKG changes in response to dobutamine did not meet the criteria for ischemia. 2. Normal echocardiogram in response to dobutamine. MARTITA / OSMANYN: [id number] /
[2018-08-27 15:27] VITALS: PULSE 80
[2018-08-27] MEDS: HYDROcodone/APAP 5-325MG 1 EACH TAB PO PRN (15:27)
--- NOTE | 2018-08-27 17:36 | P.CNPUL ---
History of Present Illness Consult date: 08/27/18 Reason for consult: chest pain Chief complaint: Sharp left-sided chest pain History of present illness: This is a 63-year-old -Surinamese female patient with past medical history of rheumatoid arthritis, essential hypertension, hypothyroidism, paroxysmal atrial fibrillation, chronic kidney disease, hyperlipidemia, GERD and mild intermittent bronchial asthma. He presented to the hospital on 08/25/2018 for evaluation of sharp left-sided chest pain for 4 days prior to coming into the hospital. She states it is intermittent, it is worse with palpation, deep inspiration, at times it stabbing, and radiates towards her shoulder and arm region. When the pain is acute patient feels short of breath, but otherwise no resting dyspnea. [place] any fever or chills, denies any peripheral edema. No cough, no phlegm production. She sees Dr. Hernandez for rheumatoid arthritis. EKGs and cardiac enzymes were negative. Patient had a previous cardiac catheterization which was normal. 3 sets of cardiac enzymes and troponins have been negative. Lab work has been negative for leukocytosis, the PVCs 4.2, hemoglobin is 11.8, electrolytes, renal profile, LFTs were within normal limits , proBNP was 53. Patient has had no fever, no chills she is hemodynamically stable. She is on room air pulse ox at 94%. Chest x-ray showed no acute cardiopulmonary process, and shows stable diffuse increased interstitial markings. Chest CT was obtained and showed small bilateral pleural effusions, scattered groundglass opacities throughout both lungs that may reflect areas of alveolitis or atypical pneumonia. Cardiomegaly. Patient had a recent CT of the chest on 08/21/2017. Patient has had previous high-resolution computed tomography scans of the chest, and was negative for interstitial lung disease, her PFT showed no significant obstructive airway limitation. Her FVC was 77%, FEV1 was 86% of predicted, total lung capacity 70%, and diffusion capacity was 75% of predicted. Patient did have a dobutamine stress test which was negative. We are seeing this patient in evaluation for abnormality seen on the CT chest, and complaints of sharp left-sided chest pain, which seems to be musculoskeletal in nature. Review of Systems All systems: negative Constitutional: Denies chills, Denies fever Eyes: denies blurred vision, denies pain Ears, nose, mouth and throat: Denies headache, Denies sore throat Cardiovascular: Denies chest pain, Denies shortness of breath Respiratory: Reports pain, Denies cough Gastrointestinal: Denies abdominal pain, Denies diarrhea, Denies nausea, Denies vomiting Genitourinary: Denies dysuria, Denies hematuria Musculoskeletal: Denies myalgias Integumentary: Denies pruritus, Denies rash Neurological: Denies numbness, Denies weakness Psychiatric: Denies anxiety, Denies depression Endocrine: Denies fatigue, Denies weight change Past Medical History Past Medical History: Atrial Fibrillation, Asthma, Coronary Artery Disease (CAD) , COPD, CVA/TIA, Diabetes Mellitus, GERD/Reflux, Hyperlipidemia, Hypertension, Pneumonia, Rheumatoid Arthritis (RA), Skin Disorder, Thyroid Disorder Additional Past Medical History / Comment(s): only 1 functioning kidney, hx of colon polyps,eczema, PAST AFIB.bronchitis, diet controlled dm. past radioactive tx for thyroid. History of Any Multi-Drug Resistant Organisms: None Reported Past Surgical History: Bladder Surgery, Heart Catheterization, Hysterectomy, Orthopedic Surgery Additional Past Surgical History / Comment(s): lasik eye sx, past cardioversion , sx for ruptured fallopian tube,cononosopy/polypectomy, rt knee sx for torn acl /debreidment, laparoscopy for endometreosis. 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 Medications and Allergies Home Medications Medication Instructions Recorded Confirmed Type Albuterol Nebulized [Ventolin 2.5 mg INHALATION RT-QID PRN 02/21/14 08/25/18 History Nebulized] Budesonide [Pulmicort] 0.5 mg INHALATION RT-BID PRN 02/21/14 08/25/18 History Hydrochlorothiazide [Hydrodiuril] 12.5 mg PO DAILY 02/21/14 08/25/18 History hydrOXYzine HCL 10 mg PO HS 02/21/14 08/25/18 History Hydrocortisone Oint 1 applic TOPICAL BID PRN 01/11/17 08/25/18 History [Hydrocortisone 2.5% Oint] Levothyroxine Sodium [Synthroid] 88 mcg PO DAILY 01/11/17 08/25/18 History Vits A,C,E/Lutein/Minerals 1 tab PO DAILY 07/17/17 08/25/18 History [Ocuvite with Lutein Tablet] Atenolol [Tenormin] 25 mg PO DAILY #30 tab 07/18/17 08/25/18 Rx Nitroglycerin Sl Tabs [Nitrostat] 0.4 mg SUBLINGUAL Q5M PRN #20 tab 07/18/1708/02 Rx Biotin 5 mg PO DAILY 08/25/18 08/25/18 History Cetirizine HCl [Zyrtec] 10 mg PO DAILY 08/25/18 08/25/18 History Cholecalciferol [Vitamin D3] 1,000 unit PO DAILY 08/25/18 08/25/18 History Multivitamins, Thera [Multivitamin 1 tab PO DAILY 08/25/18 08/25/18 History (formulary)] Triamcinolone 0.1% Cream [Kenalog 1 applicatio TOPICAL BID PRN 08/25/18 History 0.1% Cream] Allergies Allergy/AdvReac Type Severity Reaction Status Date / Time Antihistamines - Alkylamine Allergy Unknown Verified 08/25/18 20:34 Iodinated Contrast- Oral and Allergy Anaphylaxis Verified 08/25/18 20:34 IV Dye [Iodinated Contrast Media - IV Dye] lead Allergy Unknown Verified 08/25/18 20:34 aspirin AdvReac nosebleeds Verified 08/25/18 20:34 diphenhydramine HCl AdvReac Rapid Verified 08/25/18 20:34 [From Benadryl] Heart Rate Physical Exam Vitals: Vital Signs Temp Pulse Pulse Resp BP Pulse Ox 08/27/18 15:26 80 08/27/18 15:15 78 08/27/18 12:34 98.5 F 81 16 130/61 94 L 08/27/18 08:29 60 08/27/18 08:14 58 L 08/27/18 08:00 55 L 16 08/27/18 07:59 98.0 F 55 L 16 152/80 95 08/27/18 03:40 98.6 F 54 L 18 136/61 98 08/27/18 00:00 16 08/26/18 23:04 98.5 F 56 L 16 144/67 92 L 08/26/18 20:19 62 08/26/18 20:05 60 08/26/18 20:00 98.3 F 59 L 16 172/65 94 L Intake and Output 08/27/18 08/27/18 08/27/18 06:59 14:59 22:59 Intake Total 980 Balance 980 Intake: Oral 980 Other: Voiding Method Toilet Toilet # Voids 1 GENERAL EXAM: Alert, pleasant 63-year-old -Surinamese female comfortable in no apparent distress. HEAD: Normocephalic/atraumatic. EYES: Normal reaction of pupils, equal size. Conjunctiva pink, sclera white. NOSE: Clear with pink turbinates. THROAT: No erythema or exudates. NECK: No masses, no JVD, no thyroid enlargement, no adenopathy. CHEST: No chest wall deformity. Symmetrical expansion. There is left-sided chest wall tenderness with palpation, along the left breast area, and under the left armpit area LUNGS: Equal air entry with no crackles, wheeze, rhonchi or dullness. CVS: Regular rate and rhythm, normal S1 and S2, no gallops, no murmurs, no rubs ABDOMEN: Soft, nontender. No hepatosplenomegaly, normal bowel sounds, no guarding or rigidity. EXTREMITIES: No clubbing, no edema, no cyanosis, 2+ pulses and upper and lower extremities. MUSCULOSKELETAL: Muscle strength and tone normal. SPINE: No scoliosis or deformity SKIN: No rashes CENTRAL NERVOUS SYSTEM: Alert and oriented -3. No focal deficits, tone is normal in all 4 extremities. PSYCHIATRIC: Alert and oriented -3. Appropriate affect. Intact judgment and insight. Results - Laboratory Findings CBC and BMP: 08/27/18 05:49 08/25/18 17:18 PT/INR, D-dimer PT 10.8 sec (9.0-12.0) 08/25/18 17:18 INR 1.1 (<1.2) 08/25/18 17:18 D-Dimer 0.75 mg/L FEU (<0.60) H 08/26/18 12:50 Abnormal lab findings: Abnormal Labs 08/25/18 08/25/18 08/25/18 17:18 23:22 23:22 APTT 68.2 H D-Dimer Total Creatine Kinase 195 H 177 H Triglycerides Cholesterol LDL Cholesterol, Calc HDL Cholesterol 08/26/18 08/26/18 08/26/18 05:55 05:55 05:55 APTT 53.3 H D-Dimer Total Creatine Kinase 140 H Triglycerides 231 H Cholesterol 220 H LDL Cholesterol, Calc 137 H HDL Cholesterol 37 L 08/26/18 08/27/18 12:50 05:49 APTT 63.9 H D-Dimer 0.75 H Total Creatine Kinase Triglycerides Cholesterol LDL Cholesterol, Calc HDL Cholesterol - Diagnostic Findings Chest x-ray: report reviewed, image reviewed CT scan - chest: report reviewed, image reviewed Additional studies: EKG reviewed Assessment and Plan Plan: Assessment: #1. Sharp left-sided chest pain reproducible with palpation, patient had 3 negative sets of cardiac enzymes and troponins, and a negative dobutamine stress echo. This is likely musculoskeletal in nature, chest x-ray or CT chest reviewed, showed scattered groundglass opacities and would reflect areas of alveolitis, small bilateral pleural effusions, and dependent atelectasis in dependent portions of the lungs, with these findings would not explain the sharp left-sided chest pain. Previous CT scans in 2017 showed minimal interstitial changes, they were thought to be related to interstitial pneumonia. Patient's ISMAEL, rheumatoid factor and Miguel levels were all low, sedimentation level was elevated at 53. #2. Rheumatoid arthritis #3. Hypertension, 4. Hypothyroidism #4. Paroxysmal atrial fibrillation, history of cardioversion #5. Chronic kidney disease, patient has one functional kidney #5. Hyperlipidemia #6. Gastroesophageal reflux disease #7. Mild intermittent bronchial asthma currently stable #8. History of previous CVA Plan: The sharp left-sided chest pain appears to be musculoskeletal in nature, not related to cardiac or any underlying pulmonary issue. Patient can continue her maintenance inhalers, no fever, no chills, no worsening dyspnea, she is no acute distress, not on any supplemental oxygen. No cough, no phlegm production , no hemoptysis, left-sided chest pain reproducible on palpation, seems to be no soft tissue, more muscle. She was previously ruled out for interstitial lung disease, she follows with rheumatology, her ISMAEL, rheumatoid factor, and Miguel levels were low. From pulmonary perspective patient is stable for discharge home today, follow-up with Dr. Del Cid in the office I performed a history & physical examination of the patient and discussed their management with my nurse practitioner, Ashlyn Toth. I reviewed the nurse practitioner's note and agree with the documented findings and plan of care. Lung sounds are clear diminished. The findings and the impression was discussed with the patient. I attest to the documentation by the nurse practitioner. Time with Patient: Greater than 30
--- NOTE | 2018-08-27 21:41 | DS ---
DISCHARGE SUMMARY DATE OF ADMISSION: 08/25/2018 DATE OF DISCHARGE: 08/27/2018. FINAL DIAGNOSES: 1. Chest pain could be musculoskeletal. 2. Chronic intermittent asthma stable. 3. Hypothyroid. 4. Gastroesophageal reflux disease. 5. Hyperlipidemia. 6. Essential hypertension. 7. Chronic rheumatoid arthritis. 8. Chronic 1 functional kidney with chronic hydronephrosis. 9. Chronic congestive heart failure with preserved LV function. EF 55%. 10.Paroxysmal atrial fibrillation currently in sinus rhythm. HOSPITAL COURSE: The patient presented with chest pain. Troponins were negative. CT scan of the chest showed some scattered ground glass opacities seen by Dr. Del Cid. He will follow up as an outpatient. EXAMINATION: Temp 98.5, pulse 81, respirations 16, blood pressure 130/61, pulse ox 94 percent on room air. CONSULTATIONS: Dr. Pancho Vidal from Cardiology, Dr. Del Cid from Pulmonary. PHYSICAL EXAMINATION: On exam, lungs are clear. Cardiovascular: 1st and 2nd sounds are normal. DISCHARGE MEDICATIONS: 1. Ventolin 2.5 q.i.d. p.r.n. 2. Pulmicort 0.5 b.i.d. p.r.n. 3. Hydrochlorothiazide 12.5 p.o. daily. 4. Hydroxyzine 10 mg q.h.s. 5. Hydrocortisone 2.5 on topical b.i.d. p.r.n. 6. Synthroid 88 mcg a day. 7. Ocuvite with lutein 1 tablet p.o. daily. 8. Tenormin 25 mg p.o. daily. 9. Nitrostat 0.4 sublingual q.5 p.r.n. 10.Biotin 5 mg p.o. daily. 11.Zyrtec 10 mg p.o. daily. 12.Vitamin D3 1000 units p.o. daily. 13.Multivitamin 1 tablet p.o. daily. 14.Kenalog 0.1% topical b.i.d. p.r.n. FOLLOWUP: Dr. Leyva in 1 week, follow up with Dr. Del Cid on September 05 2018. Follow up with Dr. Pancho Vidal in [address] Leyva. MMODL / IJN: [id number] /
--- NOTE | 2018-08-28 10:53 | ECHOF ---
Referral Reason:chest pain MEASUREMENTS -------- HEIGHT: 167.6 cm WEIGHT: 89.4 kg BP: 136/61 RVIDd: 2.9 cm (< 3.3) IVSd: 1.2 cm (0.6 - 1.1) LVIDd: 3.0 cm (3.9 - 5.3) LVPWd: 1.3 cm (0.6 - 1.1) IVSs: 1.4 cm LVIDs: 2.1 cm LVPWs: 1.4 cm LAESV Index (A-L): 16.94 ml/m Ao Diam: 2.8 cm (2.0 - 3.7) AV Cusp: 1.5 cm (1.5 - 2.6) LA Diam: 2.6 cm (2.7 - 3.8) EPSS: 0.6 cm MV E Damir: 0.69 m/s MV DecT: 311 ms MV A Damir: 1.04 m/s MV E/A Ratio: 0.66 RAP: 5.00 mmHg RVSP: 30.00 mmHg MV EF SLOPE: 38.24 mm/s (70 - 150) MV EXCURSION: 1.00 cm (> 18.000) FINDINGS -------- Sinus rhythm. This was a technically adequate study. The left ventricular size is normal. There is mild concentric left ventricular hypertrophy. Overa ll left ventricular systolic function is normal with, an EF between 55 - 60 %. The right ventricle is normal in size and function. Normal LA size by volume 22+/-6 ml/m2. The right atrium is normal in size. Aortic valve is trileaflet and is mildly thickened. Trace amount of aortic regurgitation. There is no evidence of aortic stenosis. The mitral valve leaflets are mildly thickened. There is trace to mild mitral regurgitation. Trace tricuspid regurgitation present. Right ventricular systolic pressure is normal at < 35 mmHg. There is no evidence of pulmonary hypertension. Trace/mild (physiologic) pulmonic regurgitation. The aortic root size is normal. Normal inferior vena cava with normal inspiratory collapse consistent with estimated right atrial pre ssure of 5 mmHg. There is no pericardial effusion. CONCLUSIONS -------- 1. Sinus rhythm. 2. This was a technically adequate study. 3. The left ventricular size is normal. 4. There is mild concentric left ventricular hypertrophy. 5. Overall left ventricular systolic function is normal with, an EF between 55 - 60 %. 6. Normal LA size by volume 22+/-6 ml/m2. 7. Aortic valve is trileaflet and is mildly thickened. 8. Trace amount of aortic regurgitation. 9. The mitral valve leaflets are mildly thickened. 10. There is trace to mild mitral regurgitation. 11. Trace tricuspid regurgitation present. 12. Right ventricular systolic pressure is normal at < 35 mmHg. 13. There is no evidence of pulmonary hypertension. 14. Trace/mild (physiologic) pulmonic regurgitation. 15. The aortic root size is normal. 16. There is no pericardial effusion. ICE CREAM FREEZER: Luis F Borges RDCS
== END 2018-08-27 15:58 | disposition home or self-care (01) ==
LOC: EC 16:59 → 1SOBS 18:04
PROVIDERS: ADMIT Hospitalist; ATTEND Hospitalist
DX: R07.89 Other chest pain (principal); J45.20 Mild intermittent asthma, uncomplicated; E03.9 Hypothyroidism, unspecified; K21.9 Gastro-esophageal reflux disease without esophagitis; M06.9 Rheumatoid arthritis, unspecified; I11.0 Hypertensive heart disease with heart failure; I50.9 Heart failure, unspecified; N13.30 Unspecified hydronephrosis; Q60.0 Renal agenesis, unilateral; E78.5 Hyperlipidemia, unspecified; I48.0 Paroxysmal atrial fibrillation; J44.9 Chronic obstructive pulmonary disease, unspecified; L30.9 Dermatitis, unspecified; Z79.899 Other long term (current) drug therapy; Z79.890 Hormone replacement therapy; Z91.041 Radiographic dye allergy status; R79.89 Other specified abnormal findings of blood chemistry; E11.22 Type 2 diabetes mellitus with diabetic chronic kidney disease; N18.9 Chronic kidney disease, unspecified; Z88.6 Allergy status to analgesic agent; Z88.8 Allergy status to other drugs, medicaments and biological substances; Z91.048 Other nonmedicinal substance allergy status; I25.10 Atherosclerotic heart disease of native coronary artery without angina pectoris; Z86.73 Personal history of transient ischemic attack (TIA), and cerebral infarction without residual deficits; Z87.01 Personal history of pneumonia (recurrent); Z86.010 Personal history of colon polyps; Z87.09 Personal history of other diseases of the respiratory system; Z92.3 Personal history of irradiation; Z87.891 Personal history of nicotine dependence; Z80.42 Family history of malignant neoplasm of prostate
CPT/HCPCS: 96365; 96366 ×2; 96375 ×2; 96376 ×2; 99285; 36415; 94640 ×5; 93005; 93306; 85379; 83880; 80061; 80053; 82550 ×2; 82553 ×2; 83735; 84484 ×2; 85025; 85049 ×2; 85610; 85730 ×3; 71046; 71250; G0378 ×3; C8930; J1250; J2270 ×2; J1644 ×3; J2405; J0461; J1885; Q9950; 93351

== ENCOUNTER → 2019-07-02 | Outpatient (CLI) | payer MEDICARE, OTHER ==
--- NOTE | 2019-07-02 16:35 | CT ---
EXAMINATION TYPE: High-resolution CT chest DATE OF EXAM: 07/02/2019 COMPARISON: 08/26/2018 and 01/12/2017 abdomen and pelvis HISTORY: 63-year-old female Chest pain. TECHNIQUE: Contiguous high-resolution axial scanning of the chest without IV contrast utilizing 1 mm slice thickness and 1 cm gap per HRCT protocol. Both prone and supine imaging was performed. CT DLP: 794.3 mGycm Automated exposure control for dose reduction was used. FINDINGS: Heart normal size without pericardial effusion. Aorta normal caliber with conventional branching anatomy and minimal atherosclerotic arch calcificati ons. Prominent right tracheobronchial angle lymph node at 9 mm is unchanged. No other thoracic lymphadenop athy by HRCT technique. Scattered mild diffuse bronchial wall thickening. Strandy atelectasis or scarring at the left midlung . On the prone view, dependently, there is the development of mild patchy groundglass suggesting atel ectasis. Otherwise, no persistent dominant groundglass, honeycombing, bronchiectasis, [place] cities, cystic change, or centrilobular nodules. No thickening of the bronchovascular bundles. Tiny hiatal hernia. Otherwise, visualized upper abdomen shows a 1.9 cm hypodense lesion medial upper pole right kidney, unchanged from 01/12/2017 suggestive of a cyst. Bones: Mild degenerative disc disease mid to lower thoracic spine. IMPRESSION: 1. NO SPECIFIC HRCT FINDINGS OF INTERSTITIAL LUNG DISEASE. 2. MILD BRONCHIAL WALL THICKENING SUGGESTS BRONCHITIS OR ASTHMA. SOME STRANDY SCARRING OR ATELECTASIS AT THE LEFT MIDLUNG.
== END | disposition home or self-care (01) ==
LOC: RADCTMAIN 14:01
PROVIDERS: ATTEND Internal Medicine Critical Care Medicine
DX: J98.4 Other disorders of lung (principal)
CPT/HCPCS: 71250

== ENCOUNTER → 2019-08-03 | Outpatient (CLI) | payer MEDICARE, OTHER ==
--- NOTE | 2019-08-06 08:14 | MM ---
Reason for exam: screening (asymptomatic). Last mammogram was performed 2 years and 9 months ago. History: Patient is postmenopausal. Family history of breast cancer in maternal cousin. Took estrogen for 1 month. Physical Findings: A clinical breast exam by your physician is recommended on an annual basis and results should be correlated with mammographic findings. MG 3D Screening Mammo W/Cad Bilateral CC and MLO view(s) were taken. Prior study comparison: November 01, 2016, bilateral MG 3d screening mammo w/cad. August 28, 2015, bilateral MG 3d screening mammo w/cad. There are scattered fibroglandular densities. No significant changes when compared with prior studies. ASSESSMENT: Negative, BI-RAD 1 RECOMMENDATION: Routine screening mammogram of both breasts in 1 year.
== END | disposition home or self-care (01) ==
LOC: RADMAMWWP 08:26
PROVIDERS: ATTEND Family Medicine
DX: Z12.31 Encounter for screening mammogram for malignant neoplasm of breast (principal)
CPT/HCPCS: 77063; 77067

== ENCOUNTER → 2020-10-28 | Outpatient (CLI) | payer MEDICARE, OTHER ==
--- NOTE | 2020-10-29 11:41 | MM ---
Reason for exam: screening (asymptomatic). Last mammogram was performed 1 year and 3 months ago. History: Patient is postmenopausal. Family history of breast cancer in maternal cousin. Took estrogen for 1 month. Physical Findings: A clinical breast exam by your physician is recommended on an annual basis and results should be correlated with mammographic findings. MG 3D Screening Mammo W/Cad Bilateral CC and MLO view(s) were taken. Prior study comparison: August 03, 2019, bilateral MG 3d screening mammo w/cad. November 01, 2016, bilateral MG 3d screening mammo w/cad. There are scattered fibroglandular densities. There are benign appearing vascular calcifications bilaterally. There is no discrete abnormality. ASSESSMENT: Benign, BI-RAD 2 RECOMMENDATION: Routine screening mammogram of both breasts in 1 year.
== END | disposition home or self-care (01) ==
LOC: RADMAMWWP 09:24
PROVIDERS: ATTEND Family Medicine
DX: Z12.31 Encounter for screening mammogram for malignant neoplasm of breast (principal)
CPT/HCPCS: 77063; 77067

== ENCOUNTER → 2020-11-23 | Outpatient (CLI) | payer MEDICARE, OTHER ==
--- NOTE | 2020-11-23 09:13 | CT ---
EXAMINATION TYPE: CT chest wo con DATE OF EXAM: 11/23/2020 COMPARISON: 07/02/2019 HISTORY: Shortness of breath, asthma CT DLP: 455.[address] of the chest was performed with lung and mediastinal window settings submitted. The la ck of contrast limits evaluation of the vascular, mediastinal and parenchymal structures including th e upper abdomen. LUNGS: The lungs are clear and free of infiltrate. No atelectasis. No pulmonary nodule or mass is de tected. No pleural effusion. Minimal scattered subpleural fibrotic change. MEDIASTINUM/JESSICA: Thoracic aorta is of normal caliber with limited evaluation given lack of contrast . The heart is not enlarged. No evidence for mediastinal mass. No lymph nodes greater than 1cm. UPPER ABDOMEN: No significant abnormality is seen. OTHER: No significant other abnormality. IMPRESSION: 1. No evidence for infiltrate. Minimal scattered subpleural fibrotic change.
== END | disposition home or self-care (01) ==
LOC: RADCTMAIN 08:25
PROVIDERS: ATTEND Internal Medicine Critical Care Medicine
DX: J94.1 Fibrothorax (principal)
CPT/HCPCS: 71250

== ENCOUNTER 2021-02-11 13:54 | Observation (INO) | payer MEDICARE, OTHER ==
--- NOTE | 2021-02-11 14:25 | ED ---
Weakness HPI - General Source: patient Mode of arrival: wheelchair Limitations: no limitations <Rola Rosen - Last Filed: 02/11/21 16:41> <Bill Kochah Dania - Last Filed: 02/13/21 10:49> - General Chief complaint: Weakness Stated complaint: slip & fall Time Seen by Provider: 02/11/21 14:06 - History of Present Illness Initial comments: 65-year-old female with extensive past medical history including atrial fibri llation, interstitial lung disease, CADm HTN, HLD presenting for generalized weakness, fall. Patient states that she had her 1st covid 19 vaccine (Moderna) on 02/05/2021 pt states that Monday she began feeling tired/fatigued with no appetite. Pt states that she has had no energy at all and just feeling run down. she thinks it is because of the vaccine itself. She states she has a slight cough. Has felt warm but no recorded fevers. Denies chest pain or dyspnea. Patient states that she was in the shower and caught her foot on the shower mat, this caused her to fall on her back. Patient states she couldnt get up because she was too weak and thus she just bathed herself on the floor of the shower. Patient states she laid there for over an hour before being able to get up. Pt state she is unsure if she hit her head, because she mostly has low back pain. Denies LOC. Unsure if she is on anticoagulation but takes a lot of mediations and had atrial fibrillation. Patient denies nausea, vomiting, diarrhea, rashes, headaches, dizziness, vision loss. Pt denies neck pain or upper back pain, hip pain. Patient on arrival appears nontoxic in no acute distress. (Rola Rosen) - Related Data Home Medications Medication Instructions Recorded Confirmed Albuterol Nebulized [Ventolin 2.5 mg INHALATION RT-QID PRN 02/21/14 02/11/21 Nebulized] hydrOXYzine HCL 20 mg PO HS 02/21/14 02/11/21 hydroCHLOROthiazide [Hydrodiuril] 12.5 mg PO DAILY 02/21/14 02/11/21 Levothyroxine Sodium [Synthroid] 88 mcg PO DAILY 01/11/17 02/11/21 Cetirizine HCl [Zyrtec] 10 mg PO DAILY 08/25/18 02/11/21 Cholecalciferol [Vitamin D3 (25 1,000 unit PO BID 08/25/18 02/11/21 Mcg = 1000 Iu)] Ascorbic Acid/Elderberry Fruit 1 tab PO DAILY 02/11/21 02/11/21 [Elderberry-Vit C 50-100 mg Chw] Atenolol [Tenormin] 50 mg PO DAILY 02/11/21 02/11/21 Cyanocobalamin (Vitamin B-12) 1,000 mcg PO DAILY 02/11/21 02/11/21 [Vitamin B-12] HYDROcodone/APAP 7.5-325MG [[place] 1 tab PO TID PRN 02/11/21 02/11/21 7.5-325] Simvastatin [Zocor] 20 mg PO HS 02/11/21 02/11/21 Zinc 50 mg PO DAILY 02/11/21 02/11/21 Previous Rx's Medication Instructions Recorded Ascorbic Acid [Vitamin C] 500 mg PO BID tab 02/12/21 Dexamethasone 6 mg PO DAILY #7 tablet 02/12/21 Zinc Sulfate [Orazinc] 220 mg PO DAILY #30 cap 02/12/21 Allergies Allergy/AdvReac Type Severity Reaction Status Date / Time Antihistamines - Alkylamine Allergy Unknown Verified 02/11/21 16:20 Iodinated Contrast Media Allergy Anaphylaxis Verified 02/11/21 16:20 [Iodinated Contrast Media - IV Dye] lead Allergy Unknown Verified 02/11/21 16:20 aspirin AdvReac nosebleeds Verified 02/11/21 16:20 diphenhydramine HCl AdvReac Rapid Verified 02/11/21 16:20 [From Benadryl] Heart Rate Review of Systems ROS Other: All systems not noted in ROS Statement are negative. <Rola Rosen - Last Filed: 02/11/21 16:41> ROS Other: All systems not noted in ROS Statement are negative. <Ana Koch - Last Filed: 02/13/21 10:49> ROS Statement: Those systems with pertinent positive or pertinent negative responses have been documented in the HPI. Past Medical History Past Medical History: Atrial Fibrillation, Asthma, Coronary Artery Disease (CAD), COPD, CVA/TIA, Diabetes Mellitus, GERD/Reflux, Hyperlipidemia, Hypertension, Pneumonia, Rheumatoid Arthritis (RA), Skin Disorder, Thyroid Disorder Additional Past Medical History / Comment(s): only 1 functioning kidney, hx of colon polyps,eczema, PAST AFIB.bronchitis, diet controlled dm. past radioactive tx for thyroid. History of Any Multi-Drug Resistant Organisms: None Reported Past Surgical History: Bladder Surgery, Heart Catheterization, Hysterectomy, Orthopedic Surgery Additional Past Surgical History / Comment(s): lasik eye sx, past cardioversion, sx for ruptured fallopian tube,cononosopy/polypectomy, rt knee sx for torn acl/debreidment, laparoscopy for endometreosis. 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 Marital status: lives with <Rola Rosen - Last Filed: 02/11/21 16:41> General Exam Limitations: no limitations <Rola Rosen - Last Filed: 02/11/21 16:41> - General Exam Comments Initial Comments: General: The patient is awake and alert, in no distress Eye: +3 mm pupils are equal, round and reactive to light, extra-ocular movements are intact. No nystagmus. There is normal conjunctiva bilaterally. No signs of icterus. Ears, nose, mouth and throat: There are moist mucous membranes and no oral lesions. Neck: The neck is supple, there is no tenderness or JVD. No midline neck tenderness, full ROM without difficulty. no nuchal rigidity. Cardiovascular: There is a regular rate and rhythm. No murmur, rub or gallop is appreciated. Respiratory: Lungs are clear to auscultation, respirations are non-labored, breath sounds are equal. No wheezes, stridor, rales, or rhonchi. Gastrointestinal: [Soft, non-distended, non-tender abdomen without masses or organomegaly noted. There is no rebound or guarding present. Musculoskeletal: Normal ROM, no tenderness. Strength 5/5 of the UE and LE equal b/l. Sensation intact of the UE and LE b/l. Radial and DP pulses equal bilaterally 2+. Neurological: A&O x 3. CN II-XII intact grossly, There are no obvious motor or sensory deficits. Coordination appears grossly intact. Speech is normal. Skin: Skin is warm and dry and no rashes or lesions are noted. Psychiatric: Cooperative, appropriate mood & affect, normal judgment. (Rola Rosen) Course Vital Signs 02/11/21 02/11/21 14:01 17:04 Temperature 98.6 F 99.3 F Pulse Rate 62 64 Respiratory 16 18 Rate Blood Pressure 118/70 128/53 O2 Sat by Pulse 98 Oximetry EKG Findings - EKG Comments: EKG Findings:: Ventricular rate 70 bpm, AL interval 148 ms, QRS duration 78 ms, QT/QTC 36/416. This is sinus rhythm with PACs and nonspecific ST changes no elevation/depression <Rola Rosen - Last Filed: 02/11/21 16:41> Medical Decision Making - Lab Data Result diagrams: 02/11/21 14:48 02/11/21 14:48 <Rola Rosen - Last Filed: 02/11/21 16:41> - Lab Data Result diagrams: 02/11/21 14:48 02/11/21 14:48 <Ana Koch - Last Filed: 02/13/21 10:49> - Medical Decision Making Labs concerning for colitis as well as dehydration. Patient's lips dry which correlates clinically. Pt CXR concerning for covid 19. pt tested positive. pt did not do well on walking test, too fatigued. already had fall wtih inability to get up. pt will be admitted for hydration. pt prefers admission, i did give option of discharge with monoclonal ab however family feels she will fall again. Dr Olsen accepted patient. (Rola Rosen) I was available for consultation in the emergency department. The history and physical exam were done by the midlevel provider. I was consulted for this patients care. I reviewed the case with the midlevel provider and based on their presentation of the patient, I agree with the assessment, medical decision making and plan of care as documented. Chart was dictated using [employer] dictation software. Attempts were made to correct any dictation errors however some typographical errors may persist. Patient was seen during a national state of emergency due to the Covid-19 pandemic. (Ana Koch) - Lab Data Lab Results 02/11/21 02/11/21 02/11/21 Range/Units 14:48 14:48 14:48 WBC 3.3 L (3.8-10.6) k/uL RBC 4.47 (3.80-5.40) m/uL Hgb 12.4 (11.4-16.0) gm/dL Hct 36.7 (34.0-46.0) % MCV 82.3 (80.0-100.0) fL MCH 27.8 (25.0-35.0) pg MCHC 33.8 (31.0-37.0) g/dL RDW 13.2 (11.5-15.5) % Plt Count 104 L (150-450) k/uL MPV 8.8 Neutrophils % 80 % Lymphocytes % 13 % Monocytes % 4 % Eosinophils % 1 % Basophils % 1 % Neutrophils # 2.7 (1.3-7.7) k/uL Lymphocytes # 0.4 L (1.0-4.8) k/uL Monocytes # 0.1 (0-1.0) k/uL Eosinophils # 0.0 (0-0.7) k/uL Basophils # 0.0 (0-0.2) k/uL PT 10.5 (9.0-12.0) sec INR 1.0 (<1.2) APTT 26.0 (22.0-30.0) sec D-Dimer (<0.60) mg/L FEU Sodium 140 (137-145) mmol/L Potassium 4.5 (3.5-5.1) mmol/L Chloride 102 (98-107) mmol/L Carbon Dioxide 28 (22-30) mmol/L Anion Gap 10 mmol/L BUN 39 H (7-17) mg/dL Creatinine 1.11 H (0.52-1.04) mg/dL Est GFR (CKD-EPI)AfAm 60 (>60 ml/min/1.73 sqM) Est GFR (CKD-EPI)NonAf 52 (>60 ml/min/1.73 sqM) Glucose 131 H (74-99) mg/dL POC Glucose (mg/dL) (75-99) mg/dL POC Glu Deputy City Clerk ID Plasma Lactic Acid Erasmo (0.7-2.0) mmol/L Calcium 9.1 (8.4-10.2) mg/dL Magnesium 1.9 (1.6-2.3) mg/dL Total Bilirubin 0.4 (0.2-1.3) mg/dL AST 67 H (14-36) U/L ALT 40 H (4-34) U/L Alkaline Phosphatase 76 (38-126) U/L Troponin I (0.000-0.034) ng/mL NT-Pro-B Natriuret Pep pg/mL Total Protein 7.1 (6.3-8.2) g/dL Albumin 4.2 (3.5-5.0) g/dL Influenza Type A (PCR) (Not Detectd) Influenza Type B (PCR) (Not Detectd) RSV (PCR) (Not Detectd) SARS-CoV-2 (PCR) (Not Detectd) 02/11/21 02/11/21 02/11/21 Range/Units 14:48 14:48 14:48 WBC (3.8-10.6) k/uL RBC (3.80-5.40) m/uL Hgb (11.4-16.0) gm/dL Hct (34.0-46.0) % MCV (80.0-100.0) fL MCH (25.0-35.0) pg MCHC (31.0-37.0) g/dL RDW (11.5-15.5) % Plt Count (150-450) k/uL MPV Neutrophils % % Lymphocytes % % Monocytes % % Eosinophils % % Basophils % % Neutrophils # (1.3-7.7) k/uL Lymphocytes # (1.0-4.8) k/uL Monocytes # (0-1.0) k/uL Eosinophils # (0-0.7) k/uL Basophils # (0-0.2) k/uL PT (9.0-12.0) sec INR (<1.2) APTT (22.0-30.0) sec D-Dimer (<0.60) mg/L FEU Sodium (137-145) mmol/L Potassium (3.5-5.1) mmol/L Chloride (98-107) mmol/L Carbon Dioxide (22-30) mmol/L Anion Gap mmol/L BUN (7-17) mg/dL Creatinine (0.52-1.04) mg/dL Est GFR (CKD-EPI)AfAm (>60 ml/min/1.73 sqM) Est GFR (CKD-EPI)NonAf (>60 ml/min/1.73 sqM) Glucose (74-99) mg/dL POC Glucose (mg/dL) (75-99) mg/dL POC Glu Deputy City Clerk ID Plasma Lactic Acid Erasmo 1.1 (0.7-2.0) mmol/L Calcium (8.4-10.2) mg/dL Magnesium (1.6-2.3) mg/dL Total Bilirubin (0.2-1.3) mg/dL AST (14-36) U/L ALT (4-34) U/L Alkaline Phosphatase (38-126) U/L Troponin I <0.012 (0.000-0.034) ng/mL NT-Pro-B Natriuret Pep 23 pg/mL Total Protein (6.3-8.2) g/dL Albumin (3.5-5.0) g/dL Influenza Type A (PCR) (Not Detectd) Influenza Type B (PCR) (Not Detectd) RSV (PCR) (Not Detectd) SARS-CoV-2 (PCR) (Not Detectd) 02/11/21 02/11/21 02/11/21 Range/Units 14:48 18:43 20:18 WBC (3.8-10.6) k/uL RBC (3.80-5.40) m/uL Hgb (11.4-16.0) gm/dL Hct (34.0-46.0) % MCV (80.0-100.0) fL MCH (25.0-35.0) pg MCHC (31.0-37.0) g/dL RDW (11.5-15.5) % Plt Count (150-450) k/uL MPV Neutrophils % % Lymphocytes % % Monocytes % % Eosinophils % % Basophils % % Neutrophils # (1.3-7.7) k/uL Lymphocytes # (1.0-4.8) k/uL Monocytes # (0-1.0) k/uL Eosinophils # (0-0.7) k/uL Basophils # (0-0.2) k/uL PT (9.0-12.0) sec INR (<1.2) APTT (22.0-30.0) sec D-Dimer 0.59 (<0.60) mg/L FEU Sodium (137-145) mmol/L Potassium (3.5-5.1) mmol/L Chloride (98-107) mmol/L Carbon Dioxide (22-30) mmol/L Anion Gap mmol/L BUN (7-17) mg/dL Creatinine (0.52-1.04) mg/dL Est GFR (CKD-EPI)AfAm (>60 ml/min/1.73 sqM) Est GFR (CKD-EPI)NonAf (>60 ml/min/1.73 sqM) Glucose (74-99) mg/dL POC Glucose (mg/dL) 159 H (75-99) mg/dL POC Glu Deputy City Clerk ID Gustavo Meng Plasma Lactic Acid Erasmo (0.7-2.0) mmol/L Calcium (8.4-10.2) mg/dL Magnesium (1.6-2.3) mg/dL Total Bilirubin (0.2-1.3) mg/dL AST (14-36) U/L ALT (4-34) U/L Alkaline Phosphatase (38-126) U/L Troponin I (0.000-0.034) ng/mL NT-Pro-B Natriuret Pep pg/mL Total Protein (6.3-8.2) g/dL Albumin (3.5-5.0) g/dL Influenza Type A (PCR) Not Detected (Not Detectd) Influenza Type B (PCR) Not Detected (Not Detectd) RSV (PCR) Not Detected (Not Detectd) SARS-CoV-2 (PCR) Detected A (Not Detectd) 02/12/21 02/12/21 02/12/21 Range/Units 06:47 07:03 11:25 WBC (3.8-10.6) k/uL RBC (3.80-5.40) m/uL Hgb (11.4-16.0) gm/dL Hct (34.0-46.0) % MCV (80.0-100.0) fL MCH (25.0-35.0) pg MCHC (31.0-37.0) g/dL RDW (11.5-15.5) % Plt Count (150-450) k/uL MPV Neutrophils % % Lymphocytes % % Monocytes % % Eosinophils % % Basophils % % Neutrophils # (1.3-7.7) k/uL Lymphocytes # (1.0-4.8) k/uL Monocytes # (0-1.0) k/uL Eosinophils # (0-0.7) k/uL Basophils # (0-0.2) k/uL PT (9.0-12.0) sec INR (<1.2) APTT (22.0-30.0) sec D-Dimer (<0.60) mg/L FEU Sodium (137-145) mmol/L Potassium (3.5-5.1) mmol/L Chloride (98-107) mmol/L Carbon Dioxide (22-30) mmol/L Anion Gap mmol/L BUN (7-17) mg/dL Creatinine (0.52-1.04) mg/dL Est GFR (CKD-EPI)AfAm (>60 ml/min/1.73 sqM) Est GFR (CKD-EPI)NonAf (>60 ml/min/1.73 sqM) Glucose (74-99) mg/dL POC Glucose (mg/dL) 130 H 138 H (75-99) mg/dL POC Glu Deputy City Clerk ID Hein, Cassy Hein, Cassy Plasma Lactic Acid Erasmo 0.7 (0.7-2.0) mmol/L Calcium (8.4-10.2) mg/dL Magnesium (1.6-2.3) mg/dL Total Bilirubin (0.2-1.3) mg/dL AST (14-36) U/L ALT (4-34) U/L Alkaline Phosphatase (38-126) U/L Troponin I (0.000-0.034) ng/mL NT-Pro-B Natriuret Pep pg/mL Total Protein (6.3-8.2) g/dL Albumin (3.5-5.0) g/dL Influenza Type A (PCR) (Not Detectd) Influenza Type B (PCR) (Not Detectd) RSV (PCR) (Not Detectd) SARS-CoV-2 (PCR) (Not Detectd) Disposition Is patient prescribed a controlled substance at d/c from ED?: No Time of Disposition: 16:27 Decision to Admit Reason: Admit from EC Decision Date: 02/11/21 Decision Time: 16:27 <Rola Rosen - Last Filed: 02/11/21 16:41> <Ana Koch - Last Filed: 02/13/21 10:49> Clinical Impression: Fall, Weakness, COVID-19, Pneumonia due to COVID-19 virus, Dehydration Disposition: ADMITTED IP TO THIS HOSP Condition: Stable
[2021-02-11 14:59] LABS: Basophils % (A) 1 %; Eosinophils % (A) 1 %; HCT 36.7 % (34.0-46.0); HGB 12.4 gm/dL (11.4-16.0); Lymphocytes # (A) 0.4 k/uL (1.0-4.8); Lymphocytes % (A) 13 %; MCH 27.8 pg (25.0-35.0); MCHC 33.8 g/dL (31.0-37.0); MCV 82.3 fL (80.0-100.0); Mean Platelet Volume 8.8; Monocytes # (A) 0.1 k/uL (0-1.0); Monocytes % (A) 4 %; Neutrophils # (A) 2.7 k/uL (1.3-7.7); Neutrophils % (A) 80 %; Platelet Count 104 k/uL (150-450); RBC 4.47 m/uL (3.80-5.40); RDW 13.2 % (11.5-15.5); WBC 3.3 k/uL (3.8-10.6)
[2021-02-11 15:08] LABS: Albumin 4.2 g/dL (3.5-5.0); Calcium 9.1 mg/dL (8.4-10.2); Magnesium 1.9 mg/dL (1.6-2.3); Potassium 4.5 mmol/L (3.5-5.1); Total Bilirubin 0.4 mg/dL (0.2-1.3); Total Protein 7.1 g/dL (6.3-8.2)
[2021-02-11 15:10] LABS: Prothrombin Time 10.5 sec (9.0-12.0)
--- NOTE | 2021-02-11 15:19 | CT ---
EXAMINATION TYPE: CT brain cspine wo con DATE OF EXAM: 02/11/2021 COMPARISON: CT brain and C-spine 10/29/2013 HISTORY: Slip and fall. Trauma and pain CT DLP: 1466.4 mGycm Automated exposure control for dose reduction was used. TECHNIQUE: CT scan of the head and cervical spine are performed without contrast. FINDINGS: There is no acute intracranial hemorrhage, mass effect, or midline shift identified. The ventricles and sulci are within normal limits in size. The globes are intact and the visualized sin uses are clear. Cervical spine is visualized in its entirety from C1 through upper thoracic levels and demonstrates s atisfactory alignment without evidence of acute fracture or dislocation. Prevertebral soft tissue ap pears within normal limits. The C1-C2 articulation is unremarkable. Patchy density noted in the righ t upper lobe is indeterminate IMPRESSION: 1. There is no acute fracture or dislocation evident in the cervical spine. 2. No acute intracranial hemorrhage, mass effect, or midline shift is seen. 3. Some minimal patchy density in the right upper lobe is indeterminate, correlate for possible pneum onia.
--- NOTE | 2021-02-11 15:32 | XR ---
EXAMINATION TYPE: XR chest 2V DATE OF EXAM: 02/11/2021 COMPARISON: Chest x-ray August 25, 2018. CT chest November 23, 2020. HISTORY: Weakness, recent fall injury. TECHNIQUE: Frontal and lateral views of the chest are obtained. FINDINGS: There are new multifocal and confluent opacities in the bilateral lungs with relative spar ing of left upper lobe. No pleural effusion or pneumothorax seen bilaterally. The cardiac silhouette size is stable and upper limits of normal. The osseous structures are intact. IMPRESSION: New multifocal and confluent bilateral opacities, correlate to exclude covid-19 infectio n.
--- NOTE | 2021-02-11 15:34 | XR ---
EXAMINATION TYPE: XR lumbar spine 2 or 3V DATE OF EXAM: 02/11/2021 CLINICAL HISTORY: Weakness, recent fall injury. TECHNIQUE: Frontal and lateral images of the lumbar spine are obtained. COMPARISON: CT October 29, 2013 FINDINGS: There are 5 lumbar type vertebral bodies redemonstrated. The lumbar spine shows stable an d satisfactory alignment without evidence of acute fracture or dislocation. Vertebral body heights an d disk space heights remaining within normal limits. Mild to moderate calcified plaque in the overlyi ng abdominal aorta is present. IMPRESSION: No acute fracture or dislocation is seen in the lumbar spine.
[2021-02-11] MEDS ORDERED: NALOXONE 0.4 MG/ML 1 ML VIAL IV PRN (16:26)
[2021-02-11] MEDS ORDERED: SODIUM CHLORIDE 0.9% 1,000 ML IV ONE (16:27)
[2021-02-11] MEDS ORDERED: SODIUM CHLORIDE 0.9% 1,000 ML IV SCH (16:30)
[2021-02-11] MEDS ORDERED: ONDANSETRON 4 MG/2 ML VIAL IVP STA (17:08)
[2021-02-11] MEDS ORDERED: HYDROcodone/APAP 7.5-325MG 1 EACH TAB PO PRN (18:31)
[2021-02-11] MEDS ORDERED: ALBUTEROL NEBULIZED 2.5 MG/3 ML INHALATION PRN (18:31)
--- NOTE | 2021-02-11 18:40 | P.HPIM ---
History of Present Illness 65-year-old female came in after a fall patient up in 4 patient was feeling of generalized tightness weakness and patient was comparing of cough with the thick mucousy sputum for sputum production. Patient is having this symptoms since 02/05/2021 when she received more than a vaccine although patient was having generalized weakness and tiredness which started even a week before that it appears patient symptoms are more than 10 days ago and patient is concerned ended up getting covid vaccine after onset of symptoms. She never checked her temperature but did feel feel warm. Patient is found to have Covid 19 now. Patient is bit dehydrated will be started on IV fluids will be admitted. Chest x-ray showing bilateral infiltrate consistent with Covid 19 pneumonia. Review of Systems REVIEW OF SYSTEMS: CONSTITUTIONAL: As mentioned in HPI HEENT: No recent visual problems or hearing problems. Denied any sore throat. CARDIOVASCULAR: No chest pain, orthopnea, PND, no palpitations, no syncope. PULMONARY: no hemoptysis. GASTROINTESTINAL: As mentioned in HPI NEUROLOGICAL: No headaches, no weakness, no numbness. HEMATOLOGICAL: Denies any bleeding or petechiae. GENITOURINARY: Denies any burning micturition, frequency, or urgency. MUSCULOSKELETAL/RHEUMATOLOGICAL: Denies any joint pain, swelling, or any muscle pain. ENDOCRINE: Denies any polyuria or polydipsia. The rest of the 14-point review of systems is negative. Past Medical History Past Medical History: Atrial Fibrillation, Asthma, Coronary Artery Disease (CAD), COPD, CVA/TIA, Diabetes Mellitus, GERD/Reflux, Hyperlipidemia, Hypertension, Pneumonia, Rheumatoid Arthritis (RA), Skin Disorder, Thyroid Disorder Additional Past Medical History / Comment(s): only 1 functioning kidney, hx of colon polyps,eczema, PAST AFIB.bronchitis, diet controlled dm. past radioactive tx for thyroid. History of Any Multi-Drug Resistant Organisms: None Reported Past Surgical History: Bladder Surgery, Heart Catheterization, Hysterectomy, Orthopedic Surgery Additional Past Surgical History / Comment(s): lasik eye sx, past cardioversion, sx for ruptured fallopian tube,cononosopy/polypectomy, rt knee sx for torn acl/debreidment, laparoscopy for endometreosis. Past Anesthesia/Blood Transfusion Reactions: Previous Problems w/ Anesthesia, Motion Sickness Additional Past Anesthesia/Blood Transfusion Reaction / Comment(s): hard to wake up Past Psychological History: No Psychological Hx Reported Smoking Status: Never smoker Past Alcohol Use History: None Reported Additional Past Alcohol Use History / Comment(s): smoked from 1971 to 1973 Past Drug Use History: None Reported - Past Family History Father Family Medical History: Cancer, Prostate Disorder Additional Family Medical History / Comment(s): prostate cancer Mother Family Medical History: Liver Disease Additional Family Medical History / Comment(s): 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 Marital status: lives with Medications and Allergies Home Medications Medication Instructions Recorded Confirmed Type Albuterol Nebulized [Ventolin 2.5 mg INHALATION RT-QID PRN 02/21/14 02/11/21 History Nebulized] hydrOXYzine HCL 20 mg PO HS 02/21/14 02/11/21 History hydroCHLOROthiazide [Hydrodiuril] 12.5 mg PO DAILY 02/21/14 02/11/21 History Levothyroxine Sodium [Synthroid] 88 mcg PO DAILY 01/11/17 02/11/21 History Cetirizine HCl [Zyrtec] 10 mg PO DAILY 08/25/18 02/11/21 History Cholecalciferol [Vitamin D3 (25 1,000 unit PO BID 08/25/18 02/11/21 History Mcg = 1000 Iu)] Ascorbic Acid/Elderberry Fruit 1 tab PO DAILY 02/11/21 02/11/21 History [Elderberry-Vit C 50-100 mg Chw] Atenolol [Tenormin] 50 mg PO DAILY 02/11/21 02/11/21 History Cyanocobalamin (Vitamin B-12) 1,000 mcg PO DAILY 02/11/21 02/11/21 History [Vitamin B-12] HYDROcodone/APAP 7.5-325MG [[place] 1 tab PO TID PRN 02/11/21 02/11/21 History 7.5-325] Simvastatin [Zocor] 20 mg PO HS 02/11/21 02/11/21 History Zinc 50 mg PO DAILY 02/11/21 02/11/21 History Allergies Allergy/AdvReac Type Severity Reaction Status Date / Time Antihistamines - Alkylamine Allergy Unknown Verified 02/11/21 16:20 Iodinated Contrast Media Allergy Anaphylaxis Verified 02/11/21 16:20 [Iodinated Contrast Media - IV Dye] lead Allergy Unknown Verified 02/11/21 16:20 aspirin AdvReac nosebleeds Verified 02/11/21 16:20 diphenhydramine HCl AdvReac Rapid Verified 02/11/21 16:20 [From Benadryl] Heart Rate Physical Exam Vitals: Vital Signs Temp Pulse Pulse Resp BP BP Pulse Ox 02/11/21 18:07 99.4 F 71 20 132/66 98 02/11/21 17:04 99.3 F 64 18 128/53 98 02/11/21 14:01 98.6 F 62 16 118/70 Intake and Output 02/11/21 02/11/21 02/11/21 06:59 14:59 22:59 Other: Weight 81.647 kg 81.647 kg PHYSICAL EXAMINATION: GENERAL: The patient is alert and oriented x3, not in any acute distress. Well developed, well nourished. She and looks tired and fatigued HEENT: Pupils are round and equally reacting to light. EOMI. No scleral icterus. No conjunctival pallor. Normocephalic, atraumatic. No pharyngeal erythema. No thyromegaly. CARDIOVASCULAR: S1 and S2 present. No murmurs, rubs, or gallops. PULMONARY: Chest is clear to auscultation, no wheezing or crackles. ABDOMEN: Soft, nontender, nondistended, normoactive bowel sounds. No palpable organomegaly. MUSCULOSKELETAL: No joint swelling or deformity. EXTREMITIES: No cyanosis, clubbing, or pedal edema. NEUROLOGICAL: Gross neurological examination did not reveal any focal deficits. SKIN: No rashes. Results CBC & Chem 7: 02/11/21 14:48 02/11/21 14:48 Labs: Abnormal Lab Results - Last 24 Hours (Table) 02/11/21 02/11/21 02/11/21 Range/Units 14:48 14:48 14:48 WBC 3.3 L (3.8-10.6) k/uL Plt Count 104 L (150-450) k/uL Lymphocytes # 0.4 L (1.0-4.8) k/uL BUN 39 H (7-17) mg/dL Creatinine 1.11 H (0.52-1.04) mg/dL Glucose 131 H (74-99) mg/dL AST 67 H (14-36) U/L ALT 40 H (4-34) U/L SARS-CoV-2 (PCR) Detected A (Not Detectd) Thrombosis Risk Factor Assmnt - Choose All That Apply Each Risk Factor Represents 2 Points: Age 61-74 years Thrombosis Risk Factor Assessment Total Risk Factor Score: 2 Thrombosis Risk Factor Assessment Level: Low Risk Assessment and Plan Plan: -Generalized weakness, fall: Probably secondary to Covid 19 infection patient will be hydrated patient appears to be bit dehydrated at this time. Patient is not hypoxic will not require Decadron. Patient is out of window for Remdesivir and patient is not a candidate for monoclonal antibodies at this time. Patient was started on zinc, as chronic as it vitamin D3. Patient will be monitored for any hypoxia. - mild acute renal failure secondary to prerenal azotemia from a Covid 19 infection IV fluids as mentioned above Asthma without any acute exacerbation -Coronary disease -CVAT in the past -Gastroesophageal reflux disease -Hypothyroidism -History of rheumatoid arthritis -Type 2 diabetes mellitus. -Due to prophylaxis with Lovenox
[2021-02-11] MEDS ORDERED: guaiFENesin-DM 100-10MG/5ML 10 ML CUP PO PRN (18:41)
[2021-02-11] MEDS: ENOXAPARIN 40 MG/0.4 ML SYRINGE SQ SCH (19:27)
[2021-02-11] MEDS: ZINC SULFATE 220 MG CAP PO SCH (19:28)
[2021-02-11] MEDS: SODIUM CHLORIDE 0.9% 1,000 ML IV SCH (19:31)
[2021-02-11 20:21] LABS: Glucose,Whole Blood 159 mg/dL (75-99)
[2021-02-11] MEDS ORDERED: ATORVASTATIN 10 MG TAB PO SCH (21:00)
[2021-02-11] MEDS ORDERED: hydrOXYzine HCL 10 MG TAB PO SCH (21:00)
[2021-02-11] MEDS: ALBUTEROL HFA INHALER INHALATION PRN (21:15)
[2021-02-11] MEDS: CHOLECALCIFEROL 25 MCG (1000 IU) TABLET PO SCH (22:25)
[2021-02-11] MEDS: ASCORBIC ACID 500 MG TAB PO SCH (22:25)
[2021-02-12] MEDS: SODIUM CHLORIDE 0.9% 1,000 ML IV SCH ×2 (06:09→14:36)
[2021-02-12] MEDS ORDERED: LEVOTHYROXINE 88 MCG TAB PO SCH (06:30)
[2021-02-12 07:24] LABS: Glucose,Whole Blood 130 mg/dL (75-99)
[2021-02-12] MEDS: ALBUTEROL HFA INHALER INHALATION PRN ×3 (07:52→15:55)
[2021-02-12] MEDS ORDERED: LORATADINE 10 MG TAB PO SCH (09:00)
[2021-02-12] MEDS ORDERED: CYANOCOBALAMIN 500 MCG TAB PO SCH (09:00)
[2021-02-12] MEDS: CHOLECALCIFEROL 25 MCG (1000 IU) TABLET PO SCH (09:23)
[2021-02-12] MEDS: ZINC SULFATE 220 MG CAP PO SCH (09:23)
[2021-02-12] MEDS: ASCORBIC ACID 500 MG TAB PO SCH (09:23)
[2021-02-12] MEDS: atenoloL 50 MG TAB PO SCH ×3 (09:23→09:35)
[2021-02-12] MEDS: ENOXAPARIN 40 MG/0.4 ML SYRINGE SQ SCH (09:23)
[2021-02-12 09:56] VITALS: RESP 16
[2021-02-12 11:27] LABS: Glucose,Whole Blood 138 mg/dL (75-99)
[2021-02-12 14:10] LABS: Appearance,Urine Clear (Clear); Bacteria,Urine Rare /hpf; Bilirubin,Urine Negative (Negative); Blood,Urine Negative (Negative); Color,Urine Yellow; Glucose,Urine (UA) Negative (Negative); Ketones,Urine Negative (Negative); Leukocyte Esterase,Urine Trace (Negative); Mucus,Urine Rare /hpf; Nitrite,Urine Negative (Negative); PH, Urine 5.5 (5.0-8.0); Protein,Urine Trace (Negative); RBC,Urine 1 /hpf (0-5); Specific Gravity,Urine 1.019 (1.001-1.035); Squamous Epithelial Cell,Urine <1 /hpf (0-4); Urobilinogen,Urine <2.0 mg/dL (<2.0); WBC,Urine 7 /hpf (0-5)
[2021-02-12 15:11] VITALS: BP 135/67; PULSE 63; TEMP 98.5
--- NOTE | 2021-02-12 17:44 | CONS ---
CONSULTATION DATE OF SERVICE: 02/12/2021 REASON FOR CONSULTATION: COVID-19 pneumonia. HISTORY OF PRESENT ILLNESS: The patient is a 65-year-old -[place]ron[place] female with a past medical history significant for end-stage renal disease, coronary artery disease. The patient presented to [facility] ER yesterday for evaluation of generalized weakness and a fall. The patient mentioned she has not been feeling well, with generalized body aches been going on for about 2 weeks. The patient mentioned that she was in the shower and cut her foot on the shower mat. This caused her to fall on her back. The patient said she could not get up because she was too weak and then on the floor for a few hours. The patient did not mention losing any consciousness. Subsequently the patient was brought into the ER for further evaluation of the same. The patient denies having any chest pain or shortness of breath. Minimal cough. No sputum production. No abdominal pain. No diarrhea. The patient received her first dose of Moderna on 02/05 and the patient's symptoms seemed to be getting worse since then. For these symptoms the patient was evaluated by the ER physician. On arrival, the patient was afebrile. low-grade fever of 99.7. The patient has been saturating 98% to 94% on room air. The patient did have mild leukopenia as well as lymphopenia. D-dimer was normal. Creatinine was slightly elevated at 1.11. Liver enzymes were elevated. CRP was not done. was negative. Castellanos PCR came back positive. RSV and influenza PCR negative. The patient has been admitted to the hospital. Infectious Disease was consulted for further management. REVIEW OF SYSTEMS: Positive points have been mentioned in the HPI. Rest of the systems are negative. PAST MEDICAL HISTORY: Atrial fibrillation, coronary artery disease, COPD, CVA, TIA, diabetes mellitus, gastroesophageal reflux disease, hyperlipidemia, hypertension, pneumonia, rheumatoid arthritis, hypothyroidism. PAST SURGICAL HISTORY: Heart catheterization, hysterectomy, orthopedic surgery and bladder surgery. SOCIAL HISTORY: Denies smoking, drinking and drug use. FAMILY HISTORY: Father with history of prostate cancer. Mother with history of liver disease. ALLERGIES: ANTIHISTAMINE, IODINATED CONTRAST DYE, LEAD, ASPIRIN, DIPHENHYDRAMINE. MEDICATIONS: The patient is currently on [place], vitamin C, Tenormin, Lipitor, vitamin D3, Lovenox, Atarax, Synthroid, Claritin, Narcan, zinc sulfate. PHYSICAL EXAMINATION: On examination, her blood pressure is 135/65 with a pulse of 93, temperature 98.5. She is 94% to 98% on room air. General description is an elderly female lying in bed in no distress. No tachypnea or accessory muscle of respiration use. HEENT: Examination shows no pallor or scleral icterus. Oral mucous membrane is dry. NECK: Trachea is central. No thyromegaly. LUNGS: Unlabored breathing. Clear to auscultation anteriorly. No wheeze or crackle. HEART: S1, S2. Regular rate and rhythm. ABDOMEN: Soft. No tenderness. No guarding or rigidity. EXTREMITIES: No edema of the feet. SKIN EXAMINATION: No rash or mass palpable. Neurologically the patient is awake, alert, oriented x3. Mood and affect normal. LABS: Hemoglobin is 12.4, white count 3.3. Lymphocyte count is 04. D-dimer is 0.59. Liver enzymes mildly elevated. BUN and creatinine were elevated. DIAGNOSTIC IMPRESSION AND PLAN: Patient admitted to hospital with weakness and fall in this patient whose symptoms have been going on for 2 weeks with likely component of dehydration, as the patient did have elevated BUN and creatinine. The patient currently does not have significant fever or hypoxemia. With the symptoms going on for almost 2 weeks, will not qualify for remdesivir and does not need dexamethasone, as the patient is currently not hypoxic. PLAN: 1. Treatment is supportive. The patient should be treated with IV fluids. 2. Lovenox, zinc and ascorbic acid. 3. Droplet isolation and respiratory support. 4. Will follow clinical condition to further adjust medication if needed. Patient's oxygen needs to be monitored closely; if any evidence of any hypoxemia, she may benefit from steroids. MMODL / IJN: [id number] /
--- NOTE | 2021-03-01 17:26 | P.DS ---
Providers Date of admission: 02/12/21 11:38 Expected date of discharge: 02/12/21 Attending physician: Seng Olsen Consults: 02/11/21 18:30 Consult Physician Routine Consulting Provider: Herminio Alvarado Consult Reason/Comments: Covid 19 Do you want consulting provider notified?: Yes Primary care physician: [facility] Course: 65-year-old female came in after a fall patient up in 4 patient was feeling of generalized tightness weakness and patient was comparing of cough with the thick mucousy sputum for sputum production. Patient is having this symptoms since 02/05/2021 when she received more than a vaccine although patient was having generalized weakness and tiredness which started even a week before that it appears patient symptoms are more than 10 days ago and patient is concerned ended up getting covid vaccine after onset of symptoms. She never checked her temperature but did feel feel warm. Patient is found to have Covid 19 now. Patient is bit dehydrated will be started on IV fluids will be admitted. Chest x-ray showing bilateral infiltrate consistent with Covid 19 pneumonia. -Generalized weakness, fall: Probably secondary to Covid 19 infection patient will be hydrated patient appears to be bit dehydrated at this time. Patient is not hypoxic will not require Decadron. Patient is out of window for Remdesivir and patient is not a candidate for monoclonal antibodies at this time. Patient was started on zinc, as chronic as it vitamin D3. Patient will be monitored for any hypoxia. - mild acute renal failure secondary to prerenal azotemia from a Covid 19 infection IV fluids as mentioned above Asthma without any acute exacerbation -Coronary disease -CVAT in the past -Gastroesophageal reflux disease -Hypothyroidism -History of rheumatoid arthritis -Type 2 diabetes mellitus. -Due to prophylaxis with Lovenox Patient remained stable and sc'ed home Patient Condition at Discharge: Stable Plan - Discharge Summary New Discharge Prescriptions: New Dexamethasone 6 mg PO DAILY #7 tablet Zinc Sulfate [Orazinc] 220 mg PO DAILY #30 cap Ascorbic Acid [Vitamin C] 500 mg PO BID tab Continue hydrOXYzine HCL 20 mg PO HS Albuterol Nebulized [Ventolin Nebulized] 2.5 mg INHALATION RT-QID PRN PRN Reason: Shortness Of Breath hydroCHLOROthiazide [Hydrodiuril] 12.5 mg PO DAILY Levothyroxine Sodium [Synthroid] 88 mcg PO DAILY Cholecalciferol [Vitamin D3 (25 Mcg = 1000 Iu)] 1,000 unit PO BID Cetirizine HCl [Zyrtec] 10 mg PO DAILY Zinc 50 mg PO DAILY Cyanocobalamin (Vitamin B-12) [Vitamin B-12] 1,000 mcg PO DAILY Atenolol [Tenormin] 50 mg PO DAILY Ascorbic Acid/Elderberry Fruit [Elderberry-Vit C 50-100 mg Chw] 1 tab PO DAILY Simvastatin [Zocor] 20 mg PO HS HYDROcodone/APAP 7.5-325MG [[place] 7.5-325] 1 tab PO TID PRN PRN Reason: Pain Discharge Medication List Albuterol Nebulized [Ventolin Nebulized] 2.5 mg INHALATION RT-QID PRN 02/21/14 [History] hydrOXYzine HCL 20 mg PO HS 02/21/14 [History] hydroCHLOROthiazide [Hydrodiuril] 12.5 mg PO DAILY 02/21/14 [History] Levothyroxine Sodium [Synthroid] 88 mcg PO DAILY 01/11/17 [History] Cetirizine HCl [Zyrtec] 10 mg PO DAILY 08/25/18 [History] Cholecalciferol [Vitamin D3 (25 Mcg = 1000 Iu)] 1,000 unit PO BID 08/25/18 [History] Ascorbic Acid/Elderberry Fruit [Elderberry-Vit C 50-100 mg Chw] 1 tab PO DAILY 02/11/21 [History] Atenolol [Tenormin] 50 mg PO DAILY 02/11/21 [History] Cyanocobalamin (Vitamin B-12) [Vitamin B-12] 1,000 mcg PO DAILY 02/11/21 [History] HYDROcodone/APAP 7.5-325MG [[place] 7.5-325] 1 tab PO TID PRN 02/11/21 [History] Simvastatin [Zocor] 20 mg PO HS 02/11/21 [History] Zinc 50 mg PO DAILY 02/11/21 [History] Ascorbic Acid [Vitamin C] 500 mg PO BID tab 02/12/21 [Rx] Dexamethasone 6 mg PO DAILY #7 tablet 02/12/21 [Rx] Zinc Sulfate [Orazinc] 220 mg PO DAILY #30 cap 02/12/21 [Rx] Follow up Appointment(s)/Referral(s): Roe Leyva MD [Primary Care Provider] - 1-2 days Patient Instructions/Handouts: Coronavirus Disease 2019 (COVID-19) Discharge Disposition: HOME SELF-CARE
== END 2021-02-12 16:55 | disposition home or self-care (01) ==
LOC: EC 13:54 → 4SSUR 17:07 → OBSVTOIN 02-12 11:38 → INTOOBSV 02-12 11:38 → UNDODISIN 02-12 16:55
PROVIDERS: ADMIT Internal Medicine; ATTEND Internal Medicine
DX: R53.1 Weakness (principal); U07.1 COVID-19; J44.0 Chronic obstructive pulmonary disease with (acute) lower respiratory infection; J12.82 Pneumonia due to coronavirus disease 2019; I12.0 Hypertensive chronic kidney disease with stage 5 chronic kidney disease or end stage renal disease; N18.6 End stage renal disease; N17.9 Acute kidney failure, unspecified; K21.9 Gastro-esophageal reflux disease without esophagitis; E03.9 Hypothyroidism, unspecified; E11.22 Type 2 diabetes mellitus with diabetic chronic kidney disease; M06.9 Rheumatoid arthritis, unspecified; I48.91 Unspecified atrial fibrillation; I25.10 Atherosclerotic heart disease of native coronary artery without angina pectoris; D72.810 Lymphocytopenia; E78.5 Hyperlipidemia, unspecified; Q60.0 Renal agenesis, unilateral; L30.9 Dermatitis, unspecified; Y93.E1 Activity, personal bathing and showering; W18.2XXA Fall in (into) shower or empty bathtub, initial encounter; Z87.09 Personal history of other diseases of the respiratory system; Z86.73 Personal history of transient ischemic attack (TIA), and cerebral infarction without residual deficits; Z87.01 Personal history of pneumonia (recurrent); Z86.010 Personal history of colon polyps; Z90.710 Acquired absence of both cervix and uterus; Z79.899 Other long term (current) drug therapy; Z79.890 Hormone replacement therapy; Z88.6 Allergy status to analgesic agent; Z91.041 Radiographic dye allergy status; Z88.8 Allergy status to other drugs, medicaments and biological substances; Z91.048 Other nonmedicinal substance allergy status; Z80.42 Family history of malignant neoplasm of prostate; Z83.79 Family history of other diseases of the digestive system
CPT/HCPCS: 96361 ×3; 96372 ×2; 96374; 99285; 36415; 94640 ×3; 93005; 97162; 97166; 85379; 83880; 80053; 83605 ×2; 83735; 84484; 85025; 85610; 85730; 81001; 87040; 87636; 72100; 71046; 72125; 70450; G0378 ×2; J2405; J1650 ×2

== ENCOUNTER 2022-02-16 12:43 | Emergency (ER) | payer MEDICARE, OTHER ==
[2022-02-16 12:50] VITALS: RESP 18
[2022-02-16 13:45] LABS: Basophils % (A) 1 %; Eosinophils # (A) 0.2 k/uL (0-0.7); Eosinophils % (A) 3 %; HCT 40.2 % (34.0-46.0); HGB 12.3 gm/dL (11.4-16.0); Lymphocytes # (A) 1.6 k/uL (1.0-4.8); Lymphocytes % (A) 30 %; MCH 26.9 pg (25.0-35.0); MCHC 30.5 g/dL (31.0-37.0); MCV 88.2 fL (80.0-100.0); Mean Platelet Volume 7.9; Monocytes # (A) 0.2 k/uL (0-1.0); Monocytes % (A) 4 %; Neutrophils # (A) 3.3 k/uL (1.3-7.7); Neutrophils % (A) 61 %; Platelet Count 208 k/uL (150-450); RBC 4.55 m/uL (3.80-5.40); RDW 13.4 % (11.5-15.5); WBC 5.4 k/uL (3.8-10.6)
[2022-02-16 13:51] LABS: Appearance,Urine Cloudy (Clear); Bacteria,Urine Many /hpf; Bilirubin,Urine Negative (Negative); Blood,Urine Negative (Negative); Color,Urine Yellow; Glucose,Urine (UA) Negative (Negative); Ketones,Urine Negative (Negative); Leukocyte Esterase,Urine Large (Negative); Mucus,Urine Few /hpf; Nitrite,Urine Negative (Negative); Protein,Urine 1+ (Negative); RBC,Urine 4 /hpf (0-5); Squamous Epithelial Cell,Urine 2 /hpf (0-4); Urobilinogen,Urine <2.0 mg/dL (<2.0); WBC,Urine >182 /hpf (0-5)
--- NOTE | 2022-02-16 13:58 | CT ---
EXAMINATION TYPE: CT abdomen pelvis wo con DATE OF EXAM: 02/16/2022 COMPARISON: 01/12/2017 HISTORY: Left lower quadrant groin pain. CT DLP: 674.5 mGycm Examination of the solid and hollow viscera is limited given the lack of contrast. FINDINGS: LUNG BASES: No evidence for nodule. No evidence for infiltrate. LIVER/GB: The gallbladder is unremarkable. No space-occupying hepatic lesion. PANCREAS: No pancreatic mass identified. No inflammatory process seen. SPLEEN: No evidence for splenomegaly. No intrasplenic lesions seen. ADRENALS: No adrenal nodules identified. No evidence for thickening. KIDNEYS: Nonobstructing calculus lower pole left kidney measures 2 mm. No right-sided renal calculi s een. Hypoattenuating lesion upper pole right kidney may reflect a small cyst. No hydronephrosis. BOWEL: Appendix has a normal appearance. No evidence of bowel obstruction. No inflammatory process. Lymph nodes: No evidence for adenopathy greater than 1 cm. Abdominal aorta: Atheromatous changes seen. No evidence for aneurysm. Genital organs: No significant abnormality. Other: No significant abnormality. IMPRESSION: 1. Nonobstructing nephrolithiasis. 2. No acute intra-abdominal process.
[2022-02-16 14:04] LABS: Albumin 4.8 g/dL (3.5-5.0); Calcium 9.7 mg/dL (8.4-10.2); Potassium 3.8 mmol/L (3.5-5.1); Total Bilirubin 0.6 mg/dL (0.2-1.3); Total Protein 8.3 g/dL (6.3-8.2)
--- NOTE | 2022-02-16 16:00 | ED ---
Abdominal Pain HPI - General Chief Complaint: Abdominal Pain Stated Complaint: Side pain, Leg pain Time Seen by Provider: 02/16/22 12:51 Source: patient Mode of arrival: ambulatory Limitations: no limitations - History of Present Illness Initial Comments: Patient complains of abdominal pain. Pain is in the left lower quadrant. Nothing makes it better or worse. She has taken no medicines for this. She wasn't doing anything when it began. She has no fevers or chills. She has no chest pain. She has no shortness of breath. She has no weakness. She has no light headedness. She has no back pain. - Related Data Home Medications Medication Instructions Recorded Confirmed hydrOXYzine HCL 20 mg PO HS 02/21/14 02/16/22 hydroCHLOROthiazide [Hydrodiuril] 12.5 mg PO DAILY 02/21/14 02/16/22 Levothyroxine Sodium [Synthroid] 88 mcg PO DAILY 01/11/17 02/16/22 Cetirizine HCl [Zyrtec] 10 mg PO DAILY 08/25/18 02/16/22 Cholecalciferol [Vitamin D3 (25 1,000 unit PO BID 08/25/18 02/16/22 Mcg = 1000 Iu)] Atenolol [Tenormin] 50 mg PO DAILY 02/11/21 02/16/22 Cyanocobalamin (Vitamin B-12) 1,000 mcg PO DAILY 02/11/21 02/16/22 [Vitamin B-12] HYDROcodone/APAP 7.5-325MG [[place] 1 tab PO TID PRN 02/11/21 02/16/22 7.5-325] Simvastatin [Zocor] 20 mg PO HS 02/11/21 02/16/22 Zinc 50 mg PO DAILY 02/11/21 02/16/22 Biotin 20,000 mcg PO DAILY 02/16/22 02/16/22 Elderberry Fruit and Flower [Black 1 cap PO BID 02/16/22 02/16/22 Elderberry 575 mg Cap] amLODIPine [Norvasc] 2.5 mg PO DAILY 02/16/22 02/16/22 Previous Rx's Medication Instructions Recorded Cephalexin [Keflex] 500 mg PO Q6HR 7 Days #28 cap 02/16/22 Allergies Allergy/AdvReac Type Severity Reaction Status Date / Time Antihistamines - Alkylamine Allergy Unknown Verified 02/16/22 15:22 Iodinated Contrast Media Allergy Anaphylaxis Verified 02/16/22 15:22 [Iodinated Contrast Media - IV Dye] lead Allergy Unknown Verified 02/16/22 15:22 aspirin AdvReac nosebleeds Verified 02/16/22 15:22 diphenhydramine HCl AdvReac Rapid Verified 02/16/22 15:22 [From Benadryl] Heart Rate Review of Systems ROS Statement: Those systems with pertinent positive or pertinent negative responses have been documented in the HPI. ROS Other: All systems not noted in ROS Statement are negative. Past Medical History Past Medical History: Atrial Fibrillation, Asthma, Coronary Artery Disease (CAD), COPD, CVA/TIA, Diabetes Mellitus, GERD/Reflux, Hyperlipidemia, Hypertension, Pneumonia, Rheumatoid Arthritis (RA), Skin Disorder, Thyroid Disor donis Additional Past Medical History / Comment(s): only 1 functioning kidney, hx of colon polyps,eczema, PAST AFIB.bronchitis, diet controlled dm. past radioactive tx for thyroid. History of Any Multi-Drug Resistant Organisms: None Reported Past Surgical History: Bladder Surgery, Heart Catheterization, Hysterectomy, Orthopedic Surgery Additional Past Surgical History / Comment(s): lasik eye sx, past cardioversion, sx for ruptured fallopian tube,cononosopy/polypectomy, rt knee sx for torn acl/debreidment, laparoscopy for endometreosis. 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 Marital status: lives with General Exam Limitations: no limitations General appearance: alert, in no apparent distress Head exam: Present: atraumatic, normocephalic, normal inspection Eye exam: Present: normal appearance, PERRL, EOMI. Absent: scleral icterus, conjunctival injection, periorbital swelling ENT exam: Present: normal exam, mucous membranes moist Neck exam: Present: normal inspection. Absent: tenderness, meningismus, lymphadenopathy Respiratory exam: Present: normal lung sounds bilaterally. Absent: respiratory distress, wheezes, rales, rhonchi, stridor Cardiovascular Exam: Present: regular rate, normal rhythm, normal heart sounds. Absent: systolic murmur, diastolic murmur, rubs, gallop, clicks GI/Abdominal exam: Present: soft, normal bowel sounds. Absent: distended, tenderness, guarding, rebound, rigid Extremities exam: Present: normal inspection, full ROM, normal capillary refill. Absent: tenderness, pedal edema, joint swelling, calf tenderness Back exam: Present: normal inspection Neurological exam: Present: alert, oriented X3, CN II-XII intact Psychiatric exam: Present: normal affect, normal mood Skin exam: Present: warm, dry, intact, normal color. Absent: rash Course Vital Signs 02/16/22 12:46 Temperature 97.8 F Pulse Rate 57 L Respiratory 18 Rate Blood Pressure 150/72 O2 Sat by Pulse 99 Oximetry Medical Decision Making - Medical Decision Making patient complains of belly pain. CT is negative for any acute processes. Urinalysis is consistent with infection. I gave her IV antibiotics and prescription for antibiotics. She is stable for discharge. - Lab Data Result diagrams: 02/16/22 13:30 02/16/22 13:30 Lab Results 02/16/22 02/16/22 02/16/22 Range/Units 13:30 13:30 13:30 WBC 5.4 (3.8-10.6) k/uL RBC 4.55 (3.80-5.40) m/uL Hgb 12.3 (11.4-16.0) gm/dL Hct 40.2 (34.0-46.0) % MCV 88.2 (80.0-100.0) fL MCH 26.9 (25.0-35.0) pg MCHC 30.5 L (31.0-37.0) g/dL RDW 13.4 (11.5-15.5) % Plt Count 208 (150-450) k/uL MPV 7.9 Neutrophils % 61 % Lymphocytes % 30 % Monocytes % 4 % Eosinophils % 3 % Basophils % 1 % Neutrophils # 3.3 (1.3-7.7) k/uL Lymphocytes # 1.6 (1.0-4.8) k/uL Monocytes # 0.2 (0-1.0) k/uL Eosinophils # 0.2 (0-0.7) k/uL Basophils # 0.0 (0-0.2) k/uL Sodium 141 (137-145) mmol/L Potassium 3.8 (3.5-5.1) mmol/L Chloride 101 (98-107) mmol/L Carbon Dioxide 32 H (22-30) mmol/L Anion Gap 8 mmol/L BUN 23 H (7-17) mg/dL Creatinine 0.81 (0.52-1.04) mg/dL Est GFR (CKD-EPI)AfAm 88 (>60 ml/min/1.73 sqM) Est GFR (CKD-EPI)NonAf 76 (>60 ml/min/1.73 sqM) Glucose 112 H (74-99) mg/dL Calcium 9.7 (8.4-10.2) mg/dL Total Bilirubin 0.6 (0.2-1.3) mg/dL AST 39 H (14-36) U/L ALT 31 (4-34) U/L Alkaline Phosphatase 78 (38-126) U/L Total Protein 8.3 H (6.3-8.2) g/dL Albumin 4.8 (3.5-5.0) g/dL Amylase 112 H (30-110) U/L Lipase 90 (23-300) U/L Urine Color Yellow Urine Appearance Cloudy H (Clear) Urine pH 5.0 (5.0-8.0) Ur Specific [place] 1.020 (1.001-1.035) Urine Protein 1+ H (Negative) Urine Glucose (UA) Negative (Negative) Urine Ketones Negative (Negative) Urine Blood Negative (Negative) Urine Nitrite Negative (Negative) Urine Bilirubin Negative (Negative) Urine Urobilinogen <2.0 (<2.0) mg/dL Ur Leukocyte Esterase Large H (Negative) Urine RBC 4 (0-5) /hpf Urine WBC >182 H (0-5) /hpf Urine WBC Clumps Few H (None) /hpf Ur Squamous Epith Cells 2 (0-4) /hpf Urine Bacteria Many H (None) /hpf Urine Mucus Few H (None) /hpf Disposition Clinical Impression: Pyelonephritis Disposition: HOME SELF-CARE Condition: Good Instructions (If sedation given, give patient instructions): Kidney Infection (ED) Prescriptions: Cephalexin [Keflex] 500 mg PO Q6HR 7 Days #28 cap Is patient prescribed a controlled substance at d/c from ED?: No Referrals: Roe Leyva MD [Primary Care Provider] - 1-2 days
[2022-02-16 16:31] VITALS: BP 132/68; PULSE 68; TEMP 98.2
== END 2022-02-16 16:30 | disposition home or self-care (01) ==
LOC: EC 12:43
DX: N12 Tubulo-interstitial nephritis, not specified as acute or chronic (principal); Z88.9 Allergy status to unspecified drugs, medicaments and biological substances; J45.909 Unspecified asthma, uncomplicated; E11.9 Type 2 diabetes mellitus without complications; I10 Essential (primary) hypertension; Z86.73 Personal history of transient ischemic attack (TIA), and cerebral infarction without residual deficits; K21.9 Gastro-esophageal reflux disease without esophagitis; Z79.1 Long term (current) use of non-steroidal anti-inflammatories (NSAID); Z88.6 Allergy status to analgesic agent; Z91.041 Radiographic dye allergy status; Z88.4 Allergy status to anesthetic agent; Z88.8 Allergy status to other drugs, medicaments and biological substances
CPT/HCPCS: 36415; 80053; 82150; 83690; 85025; 81001; 87040; 87086; 74176; 99284; 96365; 96366; J0696

== ENCOUNTER → 2022-02-28 | Outpatient (CLI) | payer MEDICARE, OTHER ==
--- NOTE | 2022-03-02 10:41 | MM ---
Reason for Exam: Screening (asymptomatic). Last mammogram was performed 1 year(s) and 4 month(s) ago. Patient History: Menarche at age 13. First Full-Term at age 18. Left ovary removed at age 49. Right ovary removed at age 49. Hysterectomy at age 49. Postmenopausal. Estrogen for 1 month. Maternal cousin had breast cancer. Risk Values: Connie 5 year model risk: 1.1%. NCI Lifetime model risk: 3.8%. Film Views: Bilateral CC views were taken. Bilateral MLO views were taken. Prior Study Comparison: 11/01/2016 Bilateral Screening Mammogram, [facility]. 08/03/2019 Bilateral Screening Mammogram, [facility]. 10/28/2020 Bilateral Screening Mammogram, [facility]. Tissue Density: There are scattered fibroglandular densities. Findings: Analyzed By CAD. No significant changes when compared with prior studies. Benign vascular calcifications. Overall Assessment: Benign, BI-RAD 2 Management: Screening Mammogram of both breasts in 1 year.
== END | disposition home or self-care (01) ==
LOC: RADMAMWWP 14:50
PROVIDERS: ATTEND Family Medicine
DX: Z12.31 Encounter for screening mammogram for malignant neoplasm of breast (principal); Z78.0 Asymptomatic menopausal state; Z80.3 Family history of malignant neoplasm of breast; Z90.721 Acquired absence of ovaries, unilateral
CPT/HCPCS: 77063; 77067

== ENCOUNTER → 2023-03-23 | Outpatient (CLI) | payer MEDICARE, OTHER ==
--- NOTE | 2023-03-24 18:03 | MM ---
Reason for Exam: Screening (asymptomatic). Last mammogram was performed 1 year(s) and 1 month(s) ago. Patient History: Menarche at age 13. First Full-Term at age 18. Left ovary removed at age 49. Right ovary removed at age 49. Hysterectomy at age 49. Postmenopausal. Estrogen for 1 month. Maternal cousin had breast cancer. Risk Values: Connie 5 year model risk: 1.3%. NCI Lifetime model risk: 4.1%. Prior Study Comparison: 08/03/2019 Bilateral Screening Mammogram, [facility]. 10/28/2020 Bilateral Screening Mammogram, [facility]. 02/28/2022 Bilateral MG 3D screening mammo w/cad, [facility]. Tissue Density: The breast tissue is heterogeneously dense. This may lower the sensitivity of mammography. Findings: Analyzed By CAD. Benign vascular calcifications. There is no suspicious group of microcalcifications or new suspicious mass in either breast. Overall Assessment: Benign, BI-RAD 2 Management: Screening Mammogram of both breasts in 1 year. . Patient should continue monthly self-breast exams. A clinical breast exam by your physician is recommended on an annual basis. This exam should not preclude additional follow-up of suspicious palpable abnormalities. Note on Connie scores and lifetime risk: 1. A Connie score greater than 3% is considered moderate risk. If this is the case, consider specialist referral to assess eligibility for a risk reducing agent. 2. If overall lifetime risk for the development of breast cancer is 20% or higher, the patient may qualify for future screening with alternating mammogram and breast MRI. Electronically signed and approved by: Shereen Sin M.D. Radiologist
== END | disposition home or self-care (01) ==
LOC: RADMAMWWP 12:50
PROVIDERS: ATTEND Family Medicine
DX: Z12.31 Encounter for screening mammogram for malignant neoplasm of breast (principal); Z80.3 Family history of malignant neoplasm of breast; Z78.0 Asymptomatic menopausal state
CPT/HCPCS: 77063; 77067

== ENCOUNTER 2023-04-12 15:46 | Emergency (ER) | payer MEDICARE, OTHER ==
--- NOTE | 2023-04-12 16:13 | XR ---
EXAMINATION TYPE: XR chest 2V DATE OF EXAM: 04/12/2023 4:10 PM COMPARISON: Chest radiographs from 02/11/2021 TECHNIQUE: XR chest 2V Frontal and lateral views of the chest. CLINICAL INDICATION:Female, 67 years old with history of cough; FINDINGS: Lungs/Pleura: Left lower lung airspace opacities. There is no evidence of pleural effusion, focal con solidation, or pneumothorax. Pulmonary vascularity: Unremarkable. Heart/mediastinum: Cardiomediastinal silhouette is unremarkable. Musculoskeletal: No acute osseous pathology. IMPRESSION: Left lower lung airspace process correlate for pneumonia.
[2023-04-12 16:57] LABS: Appearance,Urine Clear (Clear); Bilirubin,Urine Negative (Negative); Blood,Urine Negative (Negative); Color,Urine Light Yellow; Glucose,Urine (UA) Negative (Negative); Ketones,Urine Negative (Negative); Leukocyte Esterase,Urine Negative (Negative); Nitrite,Urine Negative (Negative); Protein,Urine Negative (Negative); Specific Gravity,Urine 1.006 (1.001-1.035); Urobilinogen,Urine <2.0 mg/dL (<2.0)
[2023-04-12 18:58] VITALS: TEMP 98.3
[2023-04-12] MEDS ORDERED: FLUTICASONE 50MCG/SPRAY NASAL 16GM EA NOSTRIL STA (19:01)
[2023-04-12 19:18] VITALS: BP 138/69; PULSE 74; RESP 18
--- NOTE | 2023-04-12 19:18 | ED ---
General Adult HPI - General Chief complaint: Upper Respiratory Infection Stated complaint: SOB,chest congestion Time Seen by Provider: 04/12/23 19:00 Source: patient Mode of arrival: ambulatory - History of Present Illness Initial comments: Patient is a 67 year-old female presents to the emergency department for cough and congestion. She reports a green phlegm for the past couple days. She had fever a few days ago which has since resolved. She denies chest pain and shortness of breath. No nausea or vomiting. She has history of COPDand asthma - Related Data Home Medications Medication Instructions Recorded Confirmed hydrOXYzine HCL 10 mg PO HS 02/21/14 04/12/23 hydroCHLOROthiazide [Hydrodiuril] 12.5 mg PO DAILY 02/21/14 04/12/23 Levothyroxine Sodium [Synthroid] 88 mcg PO DAILY 01/11/17 04/12/23 Cetirizine HCl [Zyrtec] 10 mg PO DAILY 08/25/18 04/12/23 Cyanocobalamin (Vitamin B-12) 1,000 mcg PO DAILY 02/11/21 04/12/23 [Vitamin B-12] HYDROcodone/APAP 7.5-325MG [[place] 1 tab PO TID PRN 02/11/21 04/12/23 7.5-325] Simvastatin [Zocor] 20 mg PO HS 02/11/21 04/12/23 Zinc 50 mg PO DAILY 02/11/21 04/12/23 Biotin 10,000 mcg PO DAILY 02/16/22 04/12/23 Elderberry Fruit and Flower [Black 1 cap PO DAILY 02/16/22 04/12/23 Elderberry 575 mg Cap] amLODIPine [Norvasc] 2.5 mg PO DAILY 02/16/22 04/12/23 Ascorbic Acid [Vitamin C] 1,000 mg PO DAILY 04/12/23 04/12/23 Betamethasone Dipropionate 1 applic TOPICAL BID 04/12/23 04/12/23 [Diprolene 0.05% Ointment] Cholecalciferol [Vitamin D3 (25 50 mcg PO BID 04/12/23 04/12/23 Mcg = 1000 Iu)] Hydrocortisone Oint 1 applic TOPICAL BID 04/12/23 04/12/23 [Hydrocortisone 2.5% Oint] Previous Rx's Medication Instructions Recorded Amoxicillin 1,000 mg PO Q8H #30 cap 04/12/23 Azithromycin [Zithromax Tri-Ángel (3 500 mg PO DAILY #5 tab 04/12/23 tabs)] Allergies Allergy/AdvReac Type Severity Reaction Status Date / Time Antihistamines - Alkylamine Allergy Unknown Verified 04/12/23 19:59 Iodinated Contrast Media Allergy Anaphylaxis Verified 04/12/23 19:59 [Iodinated Contrast Media - IV Dye] lead Allergy Unknown Verified 04/12/23 19:59 aspirin AdvReac nosebleeds Verified 04/12/23 19:59 diphenhydramine HCl AdvReac Rapid Verified 04/12/23 19:59 [From Benadryl] Heart Rate Review of Systems ROS Statement: Those systems with pertinent positive or pertinent negative responses have been documented in the HPI. ROS Other: All systems not noted in ROS Statement are negative. Past Medical History Past Medical History: Atrial Fibrillation, Asthma, Coronary Artery Disease (CAD), COPD, CVA/TIA, Diabetes Mellitus, GERD/Reflux, Hyperlipidemia, Hypertension, Pneumonia, Rheumatoid Arthritis (RA), Skin Disorder, Sleep Apnea/CPAP/BIPAP, Thyroid Disorder Additional Past Medical History / Comment(s): only 1 functioning kidney, hx of colon polyps,eczema, PAST AFIB.bronchitis, diet controlled dm. past radioactive tx for thyroid. History of Any Multi-Drug Resistant Organisms: None Reported Past Surgical History: Bladder Surgery, Heart Catheterization, Hysterectomy, Orthopedic Surgery Additional Past Surgical History / Comment(s): lasik eye sx, past cardioversion, sx for ruptured fallopian tube,cononosopy/polypectomy, rt knee sx for torn acl/debreidment, laparoscopy for endometreosis. 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 Marital status: lives with Brother(s) Family Medical History: Cancer General Exam General appearance: alert, in no apparent distress Eye exam: Present: normal appearance, PERRL, EOMI. Absent: scleral icterus, conjunctival injection, periorbital swelling Respiratory exam: Present: decreased breath sounds (left lower lobe). Absent: normal lung sounds bilaterally, respiratory distress, wheezes, rales, rhonchi, stridor Cardiovascular Exam: Present: regular rate, normal rhythm, normal heart sounds. Absent: systolic murmur, diastolic murmur, rubs, gallop, clicks Neurological exam: Present: alert, oriented X3, CN II-XII intact Psychiatric exam: Present: normal affect, normal mood Skin exam: Present: warm, dry, intact, normal color. Absent: rash Course Vital Signs 04/12/23 04/12/23 04/12/23 15:49 18:58 19:00 Temperature 98.2 F 98.3 F Pulse Rate 57 L 62 Respiratory 20 17 20 Rate Blood Pressure 148/58 125/65 O2 Sat by Pulse 97 94 L Oximetry 04/12/23 19:18 Temperature Pulse Rate 74 Respiratory 18 Rate Blood Pressure 138/69 O2 Sat by Pulse 96 Oximetry Medical Decision Making - Medical Decision Making EKG taken at 16:17, interpreted by myself Sinus bradycardia, nonspecific T wave abnormality Ventricular rate 54, NV interval 175, QRS duration 91, QTc 388 Was pt. sent in by a medical professional or institution (DAMIÁN Phillips, DISTANCE EDUCATION DIRECTOR, urgent care, hospital, or retirement...) When possible be specific @ -No Did you speak to anyone other than the patient for history (EMS, parent, family, police, friend...)? What history was obtained from this source @ -No Did you review nursing and triage notes (agree or disagree)? Why? @ -[I reviewed and mostly agree. Patient does not have shortness of breath. Were old charts reviewed (outside hosp., previous admission, EMS record, old EKG, old radiological studies, urgent care reports/EKG's, retirement records)? Report findings @ -No old charts were reviewed Differential Diagnosis (chest pain, altered mental status, abdominal pain women, abdominal pain men, vaginal bleeding, weakness, fever, dyspnea, syncope, headache, dizziness, GI bleed, back pain, seizure, CVA, palpatations, mental health)? @ -Pneumonia, upper respiratory infection, bronchitis. This list is not meant to be all-inclusive EKG interpreted by me (3pts min.). @ -As above X-rays interpreted by me (1pt min.). @ -Left lower lung airspace opacity CT interpreted by me (1pt min.). @ -None done U/S interpreted by me (1pt. min.). @ -None done What testing was considered but not performed or refused? (CT, X-rays, U/S, labs)? Why? @ -None What meds were considered but not given or refused? Why? @ -None Did you discuss the management of the patient with other professionals (emeli somers i.e. , PA, DISTANCE EDUCATION DIRECTOR, lab, RT, psych nurse, forensic social worker, gift shop manager, teacher, chief green officer, onsite case manager)? Give summary @ -No Was smoking cessation discussed for >3mins.? @ -No Was critical care preformed (if so, how long)? @ -No Were there social determinants of health that impacted care today? How? (Homelessness, low income, unemployed, alcoholism, drug addiction, transportation, low edu. Level, literacy, decrease access to med. care, group home, rehab)? @ -No Was there de-escalation of care discussed even if they declined (Discuss DNR or withdrawal of care, Hospice)? DNR status @ -No What co-morbidities impacted this encounter? (DM, HTN, Smoking, COPD, CAD, Cancer, CVA, ARF, Chemo, Hep., AIDS, mental health diagnosis, sleep apnea, morbid obesity)? @ -None Was patient admitted / discharged? Hospital course, mention meds given and route, prescriptions, significant lab abnormalities, going to OR and other pertinent info. @ -Discharged. X-ray interpreted by myself showing pneumonia of the left lower lobe. Patient afebrile, no tachycardia, tachypnea, hypoxia. No chest pain or SOB. She is in stable medical condition for discharge with antibiotics. We discussed return parameters. Undiagnosed new problem with uncertain prognosis? @ -No Drug Therapy requiring intensive monitoring for toxicity (Heparin, Nitro, Insulin, Cardizem)? @ -No Were any procedures done? @ -No Diagnosis/symptom? @Pneumonia Acute, or Chronic, or Acute on Chronic? @ -Acute Uncomplicated (without systemic symptoms) or Complicated (systemic symptoms)? @Uncomplicated Side effects of treatment? @ -No Exacerbation, Progression, or Severe Exacerbation? @ -No Poses a threat to life or bodily function? How? (Chest pain, [place], [place], pneumonia, PE, COPD, DKA, ARF, appy, cholecystitis, CVA, Diverticulitis, Homicidal, Suicidal, threat to staff... and all critical care pts) @ -No Dr. Owen is my attending - Lab Data Lab Results 04/12/23 Range/Units 16:45 Urine Color Light Yellow Urine Appearance Clear (Clear) Urine pH 5.0 (5.0-8.0) Ur Specific [place] 1.006 (1.001-1.035) Urine Protein Negative (Negative) Urine Glucose (UA) Negative (Negative) Urine Ketones Negative (Negative) Urine Blood Negative (Negative) Urine Nitrite Negative (Negative) Urine Bilirubin Negative (Negative) Urine Urobilinogen <2.0 (<2.0) mg/dL Ur Leukocyte Esterase Negative (Negative) Disposition Clinical Impression: Pneumonia Disposition: HOME SELF-CARE Condition: Good Instructions (If sedation given, give patient instructions): Bacterial Pneumonia (ED) Additional Instructions: Take medication as directed. Please follow-up with your primary care provider in 1-2 days. Return to the emergency department if you experience new, concerning, or worsening symptoms. Prescriptions: Amoxicillin 1,000 mg PO Q8H #30 cap Azithromycin [Zithromax Tri-Ángel (3 tabs)] 500 mg PO DAILY #5 tab Is patient prescribed a controlled substance at d/c from ED?: No Referrals: Roe Leyva MD [Primary Care Provider] - 1-2 days
[2023-04-12] MEDS ORDERED: AMOXICILLIN 500 MG CAP PO STA (19:21)
[2023-04-12] MEDS ORDERED: AZITHROMYCIN 500 MG TAB PO STA (19:22)
== END 2023-04-12 19:50 | disposition home or self-care (01) ==
LOC: EC 15:46
DX: J18.9 Pneumonia, unspecified organism (principal); I48.91 Unspecified atrial fibrillation; J44.9 Chronic obstructive pulmonary disease, unspecified; I25.10 Atherosclerotic heart disease of native coronary artery without angina pectoris; E11.9 Type 2 diabetes mellitus without complications; E78.5 Hyperlipidemia, unspecified; I10 Essential (primary) hypertension; G47.30 Sleep apnea, unspecified; E07.9 Disorder of thyroid, unspecified; Z87.891 Personal history of nicotine dependence; Z79.890 Hormone replacement therapy; Z79.1 Long term (current) use of non-steroidal anti-inflammatories (NSAID); Z79.899 Other long term (current) drug therapy; Z86.73 Personal history of transient ischemic attack (TIA), and cerebral infarction without residual deficits; Z88.6 Allergy status to analgesic agent; Z88.8 Allergy status to other drugs, medicaments and biological substances; Z91.041 Radiographic dye allergy status
CPT/HCPCS: 71046; 81003; 99285

== ENCOUNTER → 2024-04-03 | Outpatient (CLI) | payer MEDICARE, OTHER ==
--- NOTE | 2024-04-08 08:11 | MM ---
Reason for Exam: Screening (asymptomatic). Last screening mammogram was performed 12 month(s) ago. Patient History: Menarche at age 13. First Full-Term at age 18. Left ovary removed at age 49. Right ovary removed at age 49. Hysterectomy at age 49. Postmenopausal. Estrogen for 1 month. Maternal cousin had breast cancer. Niece had breast cancer, age 42. Risk Values: Connie 5 year model risk: 1.3%. NCI Lifetime model risk: 3.9%. Prior Study Comparison: 10/28/2020 Bilateral Screening Mammogram, [facility]. 02/28/2022 Bilateral MG 3D screening mammo w/cad, [facility]. 03/23/2023 Bilateral MG 3D screening mammo w/cad, [facility]. Tissue Density: The breasts are heterogeneously dense, which may obscure small masses. Findings: Analyzed By CAD. There is no suspicious group of microcalcifications or new suspicious mass in either breast. Overall Assessment: Benign, BI-RAD 2 Management: Screening Mammogram of both breasts in 1 year. . Patient should continue monthly self-breast exams. A clinical breast exam by your physician is recommended on an annual basis. This exam should not preclude additional follow-up of suspicious palpable abnormalities. Note on Connie scores and lifetime risk: 1. A Connie score greater than 3% is considered moderate risk. If this is the case, consider specialist referral to assess eligibility for a risk reducing agent. 2. If overall lifetime risk for the development of breast cancer is 20% or higher, the patient may qualify for future screening with alternating mammogram and breast MRI. Electronically signed and approved by: Jonathan Reinoso M.D. Radiologis
== END | disposition home or self-care (01) ==
LOC: RADMAMWWP 16:42
PROVIDERS: ATTEND Family Medicine
DX: Z12.31 Encounter for screening mammogram for malignant neoplasm of breast (principal); R92.333 Mammographic heterogeneous density, bilateral breasts; Z78.0 Asymptomatic menopausal state; Z80.3 Family history of malignant neoplasm of breast
CPT/HCPCS: 77063; 77067

== ENCOUNTER → 2024-04-09 | Outpatient (CLI) | payer MEDICARE, OTHER ==
[2024-04-09 15:16] LABS: Basophils # (A) 0.02 X 10*3/uL (0.00-0.10); Basophils % (A) 0.5 %; Eosinophils # (A) 0.11 X 10*3/uL (0.04-0.35); Eosinophils % (A) 2.5 %; HCT 35.3 % (37.2-46.3); HGB 10.5 g/dL (12.0-15.0); Lymphocytes # (A) 1.44 X 10*3/uL (0.90-5.00); Lymphocytes % (A) 33.3 %; MCH 26.5 pg (27.0-32.0); MCHC 29.7 g/dL (32.0-37.0); MCV 89.1 FL (80.0-97.0); Mean Platelet Volume 12.5 FL (9.5-12.2); Monocytes # (A) 0.35 X 10*3/uL (0.20-1.00); Monocytes % (A) 8.1 %; NRBC Per 100 WBC 0 X 10*3/uL (0.00-0.01); Neutrophils % (A) 55.4 %; Platelet Count 201 X 10*3/uL (140-440); RBC 3.96 X 10*6/uL (4.10-5.20); WBC 4.33 X 10*3/uL (4.50-10.00)
[2024-04-09 15:31] LABS: % Iron Saturation 13.7 (12.00-45.00)
== END | disposition home or self-care (01) ==
LOC: LABWHC1 10:14
PROVIDERS: ATTEND Family Medicine
DX: D64.9 Anemia, unspecified (principal)
CPT/HCPCS: 36415; 83540; 83550; 85025

== ENCOUNTER → 2024-04-23 | Outpatient (CLI) | payer MEDICARE, OTHER | END | disposition home or self-care (01) | LOC: LABPRL 08:23 | PROVIDERS: ATTEND Family Medicine | DX: D64.9 Anemia, unspecified (principal) | CPT/HCPCS: 82272 ==

== ENCOUNTER 2024-06-24 10:51 | Emergency (ER) | payer MEDICARE, OTHER ==
[2024-06-24 11:01] VITALS: BP 112/57; PULSE 70; RESP 18; TEMP 97.9
--- NOTE | 2024-06-24 11:16 | ED ---
Recheck HPI - General Chief Complaint: Recheck/Abnormal Lab/Rx Stated Complaint: Testing requested Time Seen by Provider: 06/24/24 11:13 Source: patient, RN notes reviewed Mode of arrival: ambulatory Limitations: no limitations - History of Present Illness Initial Comments: 68 year old female presenting to the ER with a chief complaint of foreign body i ngestion. Patient reports 1 week ago while consuming Telugu food from an unknown restaurant she bit into what she believes is a tooth. She states she spit out her food and did not swallow above tooth. Patient reports today she started to experience nausea and looser than normal stools. She denies any fevers, chills, chest pain, shortness of breath. Patient states she would like the tooth tested for diseases. - Related Data Home Medications Medication Instructions Recorded Confirmed hydrOXYzine HCL 10 mg PO HS 02/21/14 04/12/23 hydroCHLOROthiazide [Hydrodiuril] 12.5 mg PO DAILY 02/21/14 04/12/23 Levothyroxine Sodium [Synthroid] 88 mcg PO DAILY 01/11/17 04/12/23 Cetirizine HCl [Zyrtec] 10 mg PO DAILY 08/25/18 04/12/23 Cyanocobalamin (Vitamin B-12) 1,000 mcg PO DAILY 02/11/21 04/12/23 [Vitamin B-12] HYDROcodone/APAP 7.5-325MG [[place] 1 tab PO TID PRN 02/11/21 04/12/23 7.5-325] Simvastatin [Zocor] 20 mg PO HS 02/11/21 04/12/23 Zinc 50 mg PO DAILY 02/11/21 04/12/23 Biotin 10,000 mcg PO DAILY 02/16/22 04/12/23 Elderberry Fruit and Flower [Black 1 cap PO DAILY 02/16/22 04/12/23 Elderberry 575 mg Cap] amLODIPine [Norvasc] 2.5 mg PO DAILY 02/16/22 04/12/23 Ascorbic Acid [Vitamin C] 1,000 mg PO DAILY 04/12/23 04/12/23 Betamethasone Dipropionate 1 applic TOPICAL BID 04/12/23 04/12/23 [Diprolene 0.05% Ointment] Cholecalciferol [Vitamin D3 (25 50 mcg PO BID 04/12/23 04/12/23 Mcg = 1000 Iu)] Hydrocortisone Oint 1 applic TOPICAL BID 04/12/23 04/12/23 [Hydrocortisone 2.5% Oint] Previous Rx's Medication Instructions Recorded Amoxicillin 1,000 mg PO Q8H #30 cap 04/12/23 Azithromycin [Zithromax Tri-Ángel (3 500 mg PO DAILY #5 tab 04/12/23 tabs)] Allergies Allergy/AdvReac Type Severity Reaction Status Date / Time Antihistamines - Alkylamine Allergy Unknown Verified 06/24/24 10:56 Iodinated Contrast Media Allergy Anaphylaxis Verified 06/24/24 10:56 [Iodinated Contrast Media - IV Dye] lead Allergy Unknown Verified 06/24/24 10:56 aspirin AdvReac nosebleeds Verified 06/24/24 10:56 diphenhydramine HCl AdvReac Rapid Verified 06/24/24 10:56 [From Benadryl] Heart Rate Review of Systems ROS Statement: Those systems with pertinent positive or pertinent negative responses have been documented in the HPI. ROS Other: All systems not noted in ROS Statement are negative. Past Medical History Past Medical History: Atrial Fibrillation, Asthma, Coronary Artery Disease (CAD), COPD, CVA/TIA, Diabetes Mellitus, GERD/Reflux, Hyperlipidemia, Hypertension, Pneumonia, Rheumatoid Arthritis (RA), Skin Disorder, Sleep Apnea/CPAP/BIPAP, Thyroid Disorder Additional Past Medical History / Comment(s): only 1 functioning kidney, hx of colon polyps,eczema, PAST AFIB.bronchitis, diet controlled dm. past radioactive tx for thyroid. History of Any Multi-Drug Resistant Organisms: None Reported Past Surgical History: Bladder Surgery, Heart Catheterization, Hysterectomy, Orthopedic Surgery Additional Past Surgical History / Comment(s): lasik eye sx, past cardioversion, sx for ruptured fallopian tube,cononosopy/polypectomy, rt knee sx for torn acl/debreidment, laparoscopy for endometreosis. 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 Absent: tenderness, meningismus, lymphadenopathy Respiratory exam: Present: normal lung sounds bilaterally. Absent: respiratory distress, wheezes, rales, rhonchi, stridor Cardiovascular Exam: Present: regular rate, normal rhythm, normal heart sounds. Absent: systolic murmur, diastolic murmur, rubs, gallop, clicks GI/Abdominal exam: Present: soft, normal bowel sounds. Absent: distended, t enderness, guarding, rebound, rigid Neurological exam: Present: alert, oriented X3, CN II-XII intact Skin exam: Present: warm, dry, intact, normal color. Absent: rash Course Vital Signs 06/24/24 06/24/24 10:53 11:37 Temperature 97.9 F Pulse Rate 70 Respiratory 18 18 Rate Blood Pressure 112/57 O2 Sat by Pulse 99 Oximetry Medical Decision Making - Medical Decision Making Was pt. sent in by a medical professional or institution (, PA, MEDICAL EDUCATION SPECIALIST, urgent care, hospital, or intermediate...) When possible be specific @ -No Did you speak to anyone other than the patient for history (EMS, parent, family, police, friend...)? What history was obtained from this source @ -No Did you review nursing and triage notes (agree or disagree)? Why? @ -I reviewed and agree with nursing and triage notes Were old charts reviewed (outside hosp., previous admission, EMS record, old EKG, old radiological studies, urgent care reports/EKG's, intermediate records)? Report findings @ -No old charts were reviewed Differential Diagnosis (chest pain, altered mental status, abdominal pain women, abdominal pain men, vaginal bleeding, weakness, fever, dyspnea, syncope, headache, dizziness, GI bleed, back pain, seizure, CVA, palpatations, mental health, musculoskeletal)? @ -Esophageal foreign body, fractured tooth, dental carry, this list is not meant to be all-inclusive EKG interpreted by me (3pts min.). @ -None X-rays interpreted by me (1pt min.). @ -None done CT interpreted by me (1pt min.). @ -None done U/S interpreted by me (1pt. min.). @ -None done What testing was considered but not performed or refused? (CT, X-rays, U/S, labs)? Why? @ -KUB considered for foreign body location, patient refused stating she never swallowed "tooth". What meds were considered but not given or refused? Why? @ -None Did you discuss the management of the patient with other professionals (professionals i.e. , PA, MEDICAL EDUCATION SPECIALIST, lab, RT, psych nurse, clinical social worker, tire maintenance technician, teacher, navy senior officer, rifle case repairer)? Give summary @ -No Was smoking cessation discussed for >3mins.? @ -No Was critical care preformed (if so, how long)? @ -No Were there social determinants of health that impacted care today? How? (Homelessness, low income, unemployed, alcoholism, drug addiction, transportation, low edu. Level, literacy, decrease access to med. care, [facility], rehab)? @ -No Was there de-escalation of care discussed even if they declined (Discuss DNR or withdrawal of care, Hospice)? DNR status @ -No What co-morbidities impacted this encounter? (DM, HTN, Smoking, COPD, CAD, Cancer, CVA, ARF, Chemo, Hep., AIDS, mental health diagnosis, sleep apnea, morbid obesity)? @ -None Was patient admitted / discharged? Hospital course, mention meds given and route, prescriptions, significant lab abnormalities, going to OR and other pertinent info. @ -Discharge. 68-year-old female presented to the ER with a chief complaint of hospital foreign body ingestion. History and physical exam completed. Vitals within normal limits. Patient in no signs of acute distress and nontoxic- appearing. Exam unremarkable. Patient presented to the ER with a white irregluarly shaped opaque object in a Ziploc bag. Patient also presented with the food in which she found the object, food disposed of. Patient denies actual consumption of the object and is refusing x-rays. I advised her she would need to follow-up with PCP. Patient states she will take the "tooth" to be tested to her PCP. Patient discharged stable condition. Patient verbally expressed understanding agree with care plan. Case discussed with ED attending, Dr. Koch. Undiagnosed new problem with uncertain prognosis? @ -No Drug Therapy requiring intensive monitoring for toxicity (Heparin, Nitro, Insulin, Cardizem)? @ -No Were any procedures done? @ -No Diagnosis/symptom? @ -Possible foreign body ingestion Acute, or Chronic, or Acute on Chronic? @ -Acute Uncomplicated (without systemic symptoms) or Complicated (systemic symptoms)? @ -Uncomplicated Side effects of treatment? @ -No Exacerbation, Progression, or Severe Exacerbation? @ -No Poses a threat to life or bodily function? How? (Chest pain, [place], [place], pneumonia, PE, COPD, DKA, ARF, appy, cholecystitis, CVA, Diverticulitis, Homicidal, Suicidal, threat to staff... and all critical care pts) @ -No Disposition Clinical Impression: Hx of foreign body ingestion Disposition: HOME SELF-CARE Condition: Stable Additional Instructions: Follow-up with PCP. Return to the ER for any new or worsening symptoms. Is patient prescribed a controlled substance at d/c from ED?: No Referrals: Roe Leyva MD [Primary Care Provider] - 1-2 days Time of Disposition: 11:16
== END 2024-06-24 11:38 | disposition home or self-care (01) ==
LOC: EC 10:51
CPT/HCPCS: 99283

== ENCOUNTER → 2024-06-25 | Outpatient (CLI) | payer MEDICARE, OTHER ==
[2024-06-25 15:10] LABS: Reticulocyte % 0.96 % (0.10-1.80)
[2024-06-25 15:34] LABS: % Iron Saturation 14.25 (12.00-45.00); Iron 54 UG/DL (50-170); LDH 260 U/L (120-246); Rheumatoid Factor, Qnt <15 IU/mL (0-15); Total Iron Binding Capacity 379 UG/DL (228-460)
== END | disposition home or self-care (01) ==
LOC: LABWHC1 12:11
PROVIDERS: ATTEND Internal Medicine Hematology & Oncology
DX: D50.9 Iron deficiency anemia, unspecified (principal); Z71.3 Dietary counseling and surveillance
CPT/HCPCS: 36415; 82607; 82668; 82728; 82746; 83540; 83550; 83615; 84466; 85045; 86038; 86431

== ENCOUNTER 2024-10-10 06:37 | Day surgery (SDC) | payer MEDICARE, OTHER ==
[2024-10-07 11:37] VITALS: BMI 29.7
[~2024-10-10 06:37] MED LIST: LACTATED RINGERS 1,000 ML IV SCH; LIDOCAINE 1% (10MG/ML) FOR IV START INTRADERMA PRN
[2024-10-10] MEDS: IV FLUID CONTINUATION 1,000 ML IV ONE ×2 (07:10→07:21)
[2024-10-10] MEDS ORDERED: LIDOCAINE 1% INJ 10MG/ML (20 ML MDV) ONE (07:12)
[2024-10-10] MEDS ORDERED: PROPOFOL 10 MG/ML 20 ML VIAL IV ONE (07:12)
[2024-10-10 07:14] LABS: Glucose,Whole Blood 119 mg/dL (70-110)
[2024-10-10 07:16] VITALS: TEMP 97.2
--- NOTE | 2024-10-10 07:24 | P.PCN ---
Date of Procedure: 10/10/24 Procedure(s) Performed: BRIEF HISTORY: Patient is a 69-year-old, pleasant, -Prydeinig female scheduled endoscopy as a part of evaluation of symptomatic anemia. She denies any GI symptoms. She did have a colonoscopy in December 2022 that was unremarkable other than small colon polyp. PROCEDURE PERFORMED: Esophagogastroduodenoscopy with biopsy. PREOPERATIVE DIAGNOSIS: Iron deficiency anemia negative colonoscopy 1 year ago. IV sedation per anesthesia. PROCEDURE: After informed consent was obtained, the patient was brought into the endoscopy unit. IV sedation was administered by Anesthesia under continuous monitoring. Initially the Olympus GIF-140 video endoscope was inserted into the mouth. Esophagus intubated without any difficulty. It was gradually advanced into the stomach and duodenum and carefully examined. The bulb and the second part of the duodenum appeared normal. Biopsies were done from the duodenum rule out celiac disease. The scope at this time was withdrawn to the stomach, adequately insufflated with air, and upon careful examination, mucosa of the antrum, and mild gastritis and biopsies were done from this area. Mucosa of the body, cardia and the fundus appeared normal. The scope was then withdrawn into the esophagus. Small hiatal hernia noted. The GE junction was located at 39 cm from the incisors. The esophagus appeared normal. There were no erosions or ulcerations seen and the patient tolerated the procedure well. IMPRESSION: 1. Minimal antral gastritis. 2. Small hiatal hernia. RECOMMENDATIONS: The findings of this examination were discussed with the patient as well as her family. She was advised to follow-up with the biopsy results. Continue with iron supplements. If she continues to have persistent iron deficiency anemia she may be a candidate for small bowel capsule endoscopy to evaluate further.
[2024-10-10 07:56] VITALS: BP 122/61; PULSE 64; RESP 16
== END 2024-10-10 08:27 | disposition home or self-care (01) ==
LOC: ORWHC2ENDO 06:37
PROVIDERS: ATTEND Internal Medicine Gastroenterology
DX: D50.9 Iron deficiency anemia, unspecified (principal); K29.80 Duodenitis without bleeding; K29.50 Unspecified chronic gastritis without bleeding; K44.9 Diaphragmatic hernia without obstruction or gangrene; Z86.0100 Personal history of colon polyps, unspecified; K21.9 Gastro-esophageal reflux disease without esophagitis; M06.9 Rheumatoid arthritis, unspecified; I25.10 Atherosclerotic heart disease of native coronary artery without angina pectoris; E78.5 Hyperlipidemia, unspecified; I48.91 Unspecified atrial fibrillation; I10 Essential (primary) hypertension; G47.33 Obstructive sleep apnea (adult) (pediatric); J44.9 Chronic obstructive pulmonary disease, unspecified; E07.9 Disorder of thyroid, unspecified; E11.9 Type 2 diabetes mellitus without complications; Z86.73 Personal history of transient ischemic attack (TIA), and cerebral infarction without residual deficits; Z79.890 Hormone replacement therapy; Z79.899 Other long term (current) drug therapy; Z79.51 Long term (current) use of inhaled steroids; Z88.8 Allergy status to other drugs, medicaments and biological substances; Z88.6 Allergy status to analgesic agent; Z91.041 Radiographic dye allergy status
CPT/HCPCS: 43239; J2003; J2704; 88305

== ENCOUNTER → 2025-01-29 | Outpatient (CLI) | payer MEDICARE ==
[2025-01-29 18:06] LABS: Basophils # (A) 0.02 X 10*3/uL (0.00-0.10); Basophils % (A) 0.5 %; Eosinophils # (A) 0.15 X 10*3/uL (0.04-0.35); Eosinophils % (A) 3.6 %; HCT 38.5 % (37.2-46.3); HGB 12.4 g/dL (12.0-15.0); Lymphocytes # (A) 1.51 X 10*3/uL (0.90-5.00); Lymphocytes % (A) 36.4 %; MCH 28.3 pg (27.0-32.0); MCHC 32.2 g/dL (32.0-37.0); MCV 87.9 FL (80.0-97.0); Mean Platelet Volume 11.8 FL (9.5-12.2); Monocytes # (A) 0.34 X 10*3/uL (0.20-1.00); Monocytes % (A) 8.2 %; NRBC Per 100 WBC 0 X 10*3/uL (0.00-0.01); Neutrophils # (A) 2.12 X 10*3/uL (1.80-7.70); Neutrophils % (A) 51.1 %; Platelet Count 164 X 10*3/uL (140-440); RBC 4.38 X 10*6/uL (4.10-5.20); WBC 4.15 X 10*3/uL (4.50-10.00)
[2025-01-29 18:39] LABS: ALT 31 U/L (8-44); AST 35 U/L (13-35); Albumin 4.4 g/dL (3.8-4.9); Albumin/Globulin Ratio 1.76 Ratio (1.60-3.17); Alkaline Phosphatase 75 U/L (41-126); BUN/Creat Ratio 16.78 Ratio (12.00-20.00); Blood Urea Nitrogen 15.1 mg/dL (9.0-27.0); Calcium 9.9 mg/dL (8.7-10.3); Carbon Dioxide 28.9 mmol/L (21.6-31.8); Chloride 104 mmol/L (96-109); Chol/HDL Ratio 3.22 Ratio; Globulin 2.5 g/dL (1.6-3.3); Glucose 102 mg/dL (70-110); LDL Cholesterol,Calculated 77.5 mg/dL (0.0-131.0); Potassium 4.2 mmol/L (3.5-5.5); Sodium 144 mmol/L (135-145); Total Bilirubin 0.3 mg/dL (0.3-1.2); Total Protein 6.9 g/dL (6.2-8.2)
[2025-01-29 18:40] LABS: T4, Free (Free Thyroxine) 1.01 ng/dL (0.80-1.80)
== END | disposition home or self-care (01) ==
LOC: LABWHC1 12:54
PROVIDERS: ATTEND Family Medicine
DX: E03.9 Hypothyroidism, unspecified (principal); E78.5 Hyperlipidemia, unspecified; E56.9 Vitamin deficiency, unspecified
CPT/HCPCS: 36415; 80053; 80061; 82306; 84439; 84443; 84481; 85025

== ENCOUNTER 2025-05-03 13:33 | Emergency (ER) | payer MEDICARE ==
--- NOTE | 2025-05-03 14:16 | ED ---
General Adult HPI - General Chief complaint: Dizziness Stated complaint: Dizziness/Back Pain Time Seen by Provider: 05/03/25 13:45 Source: patient, RN notes reviewed Mode of arrival: wheelchair Limitations: no limitations - History of Present Illness Initial comments: 69-year-old female presents to the emergency department for evaluation of pain with urination and abdominal pain. Patient notes that the symptoms have been going on for around 3 weeks. She states that she has been increasing her fluids and drinking cranberry juice and attempt to help. 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 She denies fever but she endorses sweats. Endorses light headedness with standing quickly. She denies any chest pain, shortness of breath. Denies nausea, vomiting. - Related Data Home Medications Medication Instructions Recorded Confirmed hydrOXYzine HCL 10 mg PO HS 02/21/14 10/07/24 hydroCHLOROthiazide [Hydrodiuril] 12.5 mg PO DAILY 02/21/14 10/07/24 Levothyroxine Sodium [Synthroid] 88 mcg PO DAILY 01/11/17 10/07/24 Cetirizine HCl [Zyrtec] 10 mg PO DAILY 08/25/18 10/07/24 Cyanocobalamin (Vitamin B-12) 1,000 mcg PO DAILY 02/11/21 10/07/24 [Vitamin B-12] HYDROcodone/APAP 7.5-325MG [[place] 1 tab PO TID PRN 02/11/21 10/07/24 7.5-325] Simvastatin [Zocor] 20 mg PO HS 02/11/21 10/07/24 Zinc 50 mg PO DAILY 02/11/21 10/07/24 Biotin 10,000 mcg PO BID 02/16/22 10/07/24 Elderberry Fruit and Flower [Black 1 cap PO DAILY 02/16/22 10/07/24 Elderberry 575 mg Cap] amLODIPine [Norvasc] 2.5 mg PO DAILY 02/16/22 10/07/24 Ascorbic Acid [Vitamin C] 1,000 mg PO DAILY 04/12/23 10/07/24 Betamethasone Dipropionate 1 applic TOPICAL BID 04/12/23 10/07/24 [Diprolene 0.05% Ointment] Cholecalciferol [Vitamin D3 (25 50 mcg PO BID 04/12/23 10/07/24 Mcg = 1000 Iu)] Hydrocortisone Oint 1 applic TOPICAL BID 04/12/23 10/07/24 [Hydrocortisone 2.5% Oint] Albuterol Inhaler [Ventolin Hfa 1 - 2 puff INHALATION Q6H PRN 10/07/24 10/07/24 Inhaler] Albuterol Nebulized [Ventolin 2.5 mg INHALATION Q4H PRN 10/07/24 10/07/24 Nebulized] Previous Rx's Medication Instructions Recorded Cephalexin [Keflex] 500 mg PO Q6HR #40 cap 05/03/25 Allergies Allergy/AdvReac Type Severity Reaction Status Date / Time Antihistamines - Alkylamine Allergy Unknown Verified 10/10/24 06:56 Iodinated Contrast Media Allergy Anaphylaxis Verified 10/10/24 06:56 [Iodinated Contrast Media - IV Dye] lead Allergy Unknown Verified 10/10/24 06:56 aspirin AdvReac nosebleeds Verified 10/10/24 06:56 diphenhydramine HCl AdvReac Rapid Verified 10/10/24 06:56 [From Benadryl] Heart Rate Review of Systems ROS Statement: Those systems with pertinent positive or pertinent negative responses have been documented in the HPI. ROS Other: All systems not noted in ROS Statement are negative. Past Medical History Past Medical History: Atrial Fibrillation, Asthma, Coronary Artery Disease (CAD), COPD, CVA/TIA, Diabetes Mellitus, GERD/Reflux, Hyperlipidemia, Hypertension, Pneumonia, Rheumatoid Arthritis (RA), Skin Disorder, Sleep Apnea/CPAP/BIPAP, Thyroid Disorder Additional Past Medical History / Comment(s): only 1 functioning kidney, hx of colon polyps,eczema, PAST AFIB.bronchitis, diet controlled dm. past radioactive tx for thyroid., cpap, History of Any Multi-Drug Resistant Organisms: None Reported Past Surgical History: Bladder Surgery, Heart Catheterization, Hysterectomy, Orthopedic Surgery Additional Past Surgical History / Comment(s): lasik eye sx, past cardioversion, sx for ruptured fallopian tube,cononosopy/polypectomy, rt knee sx for torn acl/debreidment, laparoscopy for endometreosis. Past Anesthesia/Blood Transfusion Reactions: Previous Problems w/ Anesthesia, Motion Sickness Additional Past Anesthesia/Blood Transfusion Reaction / Comment(s): hard to wake up. 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 Marital status: lives with Brother(s) Family Medical History: Cancer Additional Family Medical History / Comment(s): prostate General Exam Limitations: no limitations General appearance: alert, in no apparent distress Head exam: Present: atraumatic, normocephalic, normal inspection Eye exam: Present: normal appearance, PERRL, EOMI. Absent: scleral icterus, conjunctival injection, periorbital swelling ENT exam: Present: normal exam, mucous membranes moist Neck exam: Present: normal inspection. Absent: tenderness, meningismus, lymphadenopathy Respiratory exam: Present: normal lung sounds bilaterally. Absent: respiratory distress, wheezes, rales, rhonchi, stridor Cardiovascular Exam: Present: regular rate, normal rhythm, normal heart sounds. Absent: systolic murmur, diastolic murmur, rubs, gallop, clicks GI/Abdominal exam: Present: soft, tenderness, normal bowel sounds. Absent: distended, guarding, rebound, rigid Extremities exam: Present: normal inspection, full ROM, normal capillary refill. Absent: tenderness, pedal edema, joint swelling, calf tenderness Back exam: Present: normal inspection Neurological exam: Present: alert, oriented X3 Psychiatric exam: Present: normal affect, normal mood Skin exam: Present: warm, dry, intact, normal color. Absent: rash Course Vital Signs 05/03/25 05/03/25 05/03/25 13:38 17:37 18:26 Temperature 98.1 F 98.0 F Pulse Rate 61 59 L 60 Respiratory 16 19 16 Rate Blood Pressure 117/74 131/60 129/60 O2 Sat by Pulse 97 100 100 Oximetry Medical Decision Making - Medical Decision Making Was pt. sent in by a medical professional or institution (, PA, CLOTH DYER, urgent care, hospital, or correction...) When possible be specific @ -No Did you speak to anyone other than the patient for history (EMS, parent, family, police, friend...)? What history was obtained from this source @ -No Did you review nursing and triage notes (agree or disagree)? Why? @ -I reviewed and agree with nursing and triage notes Were old charts reviewed (outside hosp., previous admission, EMS record, old EKG, old radiological studies, urgent care reports/EKG's, correction records)? Report findings @ -No old charts were reviewed Differential Diagnosis (chest pain, altered mental status, abdominal pain women, abdominal pain men, vaginal bleeding, weakness, fever, dyspnea, syncope, headache, dizziness, GI bleed, back pain, seizure, CVA, palpatations, mental health, musculoskeletal)? @ -Differential Abdominal Pain Women: Appendicitis, Cholecystitis, diverticulosis, ischemic bowel, pancreatitis, hepatitis, UTI, gastroenteritis, AAA, incarcerated hernia, bowel obstruction, constipation, inflammatory bowel, hepatitis, peptic ulcer disease, splenic infarction, perforated viscus, vulvitis, ovarian torsion, PID, kidney stone, placenta abruption, this is not meant to be an all-inclusive list EKG interpreted by me (3pts min.). @ -EKG at 1431 shows sinus rhythm, rate of 55, SD 175, QRS 94, QT/QTc 306/295 X-rays interpreted by me (1pt min.). @ -None done CT interpreted by me (1pt min.). @ -CT abdomen pelvis reveals right-sided hydronephrosis, no evidence of obstructing renal calculi U/S interpreted by me (1pt. min.). @ -None done What testing was considered but not performed or refused? (CT, X-rays, U/S, labs)? Why? @ -None What meds were considered but not given or refused? Why? @ -None Did you discuss the management of the patient with other professionals (professionals i.e. , PA, CLOTH D[employer]ER, lab, RT, psych nurse, social work therapist, surgery scheduling coordinator, teacher, chief mechanical officer, case consultant)? Give summary @ -No Was smoking cessation discussed for >3mins.? @ -No Was critical care preformed (if so, how long)? @ -No Were there social determinants of health that impacted care today? How? (Homelessness, low income, unemployed, alcoholism, drug addiction, transportation, low edu. Level, literacy, decrease access to med. care, fci, rehab)? @ -No Was there de-escalation of care discussed even if they declined (Discuss DNR or withdrawal of care, Hospice)? DNR status @ -No What co-morbidities impacted this encounter? (DM, HTN, Smoking, COPD, CAD, Cancer, CVA, ARF, Chemo, Hep., AIDS, mental health diagnosis, sleep apnea, morbid obesity)? @ -None Was patient admitted / discharged? Hospital course, mention meds given and route, prescriptions, significant lab abnormalities, going to OR and other pertinent info. @ -Discharge. Patient presented the emergency department for evaluation of dysuria. Laboratory studies obtained revealing no significant leukocytosis, BUN and creatinine within normal limits. Patient underwent CT abdomen pelvis revealing right-sided hydronephrosis with no evidence of obstructing renal calculi. UA shows large leukocyte Estrace, greater than 182 WBCs, many WBC clumps indicative of urinary tract infection. Patient was provided 1 L normal saline in the emergency department. Patient administered 2 g Rocephin IV. Patient will be discharged home. I did offer her admission but she preferred to be discharged with oral treatment at this time. Patient is understanding agreeable discharge plan. Patient stable at time of discharge. Case discussed with Dr. Wolf. Undiagnosed new problem with uncertain prognosis? @ -No Drug Therapy requiring intensive monitoring for toxicity (Heparin, Nitro, Insulin, Cardizem)? @ -No Were any procedures done? @ -No Diagnosis/symptom? @ -UTI Acute, or Chronic, or Acute on Chronic? @ -Acute Uncomplicated (without systemic symptoms) or Complicated (systemic symptoms)? @ -Uncomplicated Side effects of treatment? @ -No Exacerbation, Progression, or Severe Exacerbation? @ -No Poses a threat to life or bodily function? How? (Chest pain, USA, NC, pneumonia, PE, COPD, DKA, ARF, appy, cholecystitis, CVA, Diverticulitis, Homicidal, Suicidal, threat to staff... and all critical care pts) @ -No - Lab Data Result diagrams: 05/03/25 14:45 05/03/25 14:45 Lab Results 05/03/25 05/03/25 05/03/25 Range/Units 14:45 14:45 14:45 WBC 4.00 L (4.50-10.00) 10*3/uL RBC 4.26 (4.10-5.20) 10*6/uL Hgb 12.3 (12.0-15.0) g/dL Hct 37.2 (37.2-46.3) % MCV 87.3 (80.0-97.0) fL MCH 28.9 (27.0-32.0) pg MCHC 33.1 (32.0-37.0) g/dL Plt Count 152 (140-440) 10*3/uL MPV 10.4 (9.5-12.2) fL Immature Gran % (Auto) 0.3 % Neutrophils % 56.5 % Lymphocytes % 30.3 % Monocytes % 9.8 % Eosinophils % 2.8 % Basophils % 0.3 % Immature Gran # 0.01 (0.00-0.04) 10*3/uL Neutrophils # 2.27 (1.80-7.70) 10*3/uL Lymphocytes # 1.21 (0.90-5.00) 10*3/uL Monocytes # 0.39 (0.20-1.00) 10*3/uL Eosinophils # 0.11 (0.04-0.35) 10*3/uL Basophils # 0.01 (0.00-0.10) 10*3/uL PT (10.0-12.5) sec INR (<1.2) APTT (22.0-30.0) sec Sodium 141 (137-145) mmol/L Potassium 4.7 (3.5-5.1) mmol/L Chloride 101 (98-107) mmol/L Carbon Dioxide 26 (22-30) mmol/L Anion Gap 14 mmol/L BUN 21 H (7-17) mg/dL Creatinine 0.80 (0.52-1.04) mg/dL Est GFR (CKD-EPI)AfAm 87 (>60 ml/min/1.73 sqM) Est GFR (CKD-EPI)NonAf 75 (>60 ml/min/1.73 sqM) Glucose 103 H (74-99) mg/dL Plasma Lactic Acid Erasmo (0.7-2.0) mmol/L Calcium 10.1 (8.4-10.2) mg/dL Magnesium 2.0 (1.6-2.3) mg/dL Total Bilirubin 0.5 (0.2-1.3) mg/dL AST 35 (14-36) U/L ALT 34 (4-34) U/L Alkaline Phosphatase 69 (38-126) U/L Total Protein 7.6 (6.3-8.2) g/dL Albumin 4.6 (3.5-5.0) g/dL Urine Color Light Yellow Urine Appearance Turbid H (Clear) Urine pH 6.0 (5.0-8.0) Ur Specific [place] 1.017 (1.001-1.035) Urine Protein 1+ H (Negative) Urine Glucose (UA) Negative (Negative) Urine Ketones Negative (Negative) Urine Blood Small H (Negative) Urine Nitrite Negative (Negative) Urine Bilirubin Negative (Negative) Urine Urobilinogen <2.0 (<2.0) mg/dL Ur Leukocyte Esterase Large H (Negative) Urine RBC 27 H (0-5) /hpf Urine WBC >182 H (0-5) /hpf Urine WBC Clumps Many H (None) /hpf Ur Squamous Epith Cells 10 H (0-4) /hpf Urine Bacteria Moderate H (None) /hpf Urine Mucus Rare H (None) /hpf 05/03/25 05/03/25 Range/Units 14:45 14:45 WBC (4.50-10.00) 10*3/uL RBC (4.10-5.20) 10*6/uL Hgb (12.0-15.0) g/dL Hct (37.2-46.3) % MCV (80.0-97.0) fL MCH (27.0-32.0) pg MCHC (32.0-37.0) g/dL Plt Count (140-440) 10*3/uL MPV (9.5-12.2) fL Immature Gran % (Auto) % Neutrophils % % Lymphocytes % % Monocytes % % Eosinophils % % Basophils % % Immature Gran # (0.00-0.04) 10*3/uL Neutrophils # (1.80-7.70) 10*3/uL Lymphocytes # (0.90-5.00) 10*3/uL Monocytes # (0.20-1.00) 10*3/uL Eosinophils # (0.04-0.35) 10*3/uL Basophils # (0.00-0.10) 10*3/uL PT 10.8 (10.0-12.5) sec INR 1.0 (<1.2) APTT 25.1 (22.0-30.0) sec Sodium (137-145) mmol/L Potassium (3.5-5.1) mmol/L Chloride (98-107) mmol/L Carbon Dioxide (22-30) mmol/L Anion Gap mmol/L BUN (7-17) mg/dL Creatinine (0.52-1.04) mg/dL Est GFR (CKD-EPI)AfAm (>60 ml/min/1.73 sqM) Est GFR (CKD-EPI)NonAf (>60 ml/min/1.73 sqM) Glucose (74-99) mg/dL Plasma Lactic Acid [place] 1.2 (0.7-2.0) mmol/L Calcium (8.4-10.2) mg/dL Magnesium (1.6-2.3) mg/dL Total Bilirubin (0.2-1.3) mg/dL AST (14-36) U/L ALT (4-34) U/L Alkaline Phosphatase (38-126) U/L Total Protein (6.3-8.2) g/dL Albumin (3.5-5.0) g/dL Urine Color Urine Appearance (Clear) Urine pH (5.0-8.0) Ur Specific [place] (1.001-1.035) Urine Protein (Negative) Urine Glucose (UA) (Negative) Urine Ketones (Negative) Urine Blood (Negative) Urine Nitrite (Negative) Urine Bilirubin (Negative) Urine Urobilinogen (<2.0) mg/dL Ur Leukocyte Esterase (Negative) Urine RBC (0-5) /hpf Urine WBC (0-5) /hpf Urine WBC Clumps (None) /hpf Ur Squamous Epith Cells (0-4) /hpf Urine Bacteria (None) /hpf Urine Mucus (None) /hpf Disposition Clinical Impression: UTI (urinary tract infection) Disposition: HOME SELF-CARE Condition: Stable Instructions (If sedation given, give patient instructions): Urinary Tract Infection in Women (ED) Additional Instructions: Please sisal picker your antibiotic and take to completion. Follow-up with your doctor. Return to the emergency department for new or worsening symptoms. Prescriptions: Cephalexin [Keflex] 500 mg PO Q6HR #40 cap Is patient prescribed a controlled substance at d/c from ED?: No Referrals: Roe Leyva MD [Primary Care Provider] - 1-2 days
[2025-05-03 14:59] LABS: Basophils # (A) 0.01 10*3/uL (0.00-0.10); Basophils % (A) 0.3 %; Eosinophils # (A) 0.11 10*3/uL (0.04-0.35); Eosinophils % (A) 2.8 %; HCT 37.2 % (37.2-46.3); HGB 12.3 g/dL (12.0-15.0); Lymphocytes # (A) 1.21 10*3/uL (0.90-5.00); Lymphocytes % (A) 30.3 %; MCH 28.9 pg (27.0-32.0); MCHC 33.1 g/dL (32.0-37.0); MCV 87.3 fL (80.0-97.0); Monocytes # (A) 0.39 10*3/uL (0.20-1.00); Monocytes % (A) 9.8 %; Neutrophils # (A) 2.27 10*3/uL (1.80-7.70); Neutrophils % (A) 56.5 %; Platelet Count 152 10*3/uL (140-440); RBC 4.26 10*6/uL (4.10-5.20); RDW 11.9 % (11.5-14.5); WBC 4.00 10*3/uL (4.50-10.00)
[2025-05-03 15:09] LABS: Bacteria,Urine Moderate /hpf; Bilirubin,Urine Negative (Negative); Blood,Urine Small (Negative); Color,Urine Light Yellow; Glucose,Urine (UA) Negative (Negative); Ketones,Urine Negative (Negative); Leukocyte Esterase,Urine Large (Negative); Mucus,Urine Rare /hpf; Nitrite,Urine Negative (Negative); PH, Urine 6.0 (5.0-8.0); Protein,Urine 1+ (Negative); RBC,Urine 27 /hpf (0-5); Specific Gravity,Urine 1.017 (1.001-1.035); Squamous Epithelial Cell,Urine 10 /hpf (0-4); Urobilinogen,Urine <2.0 mg/dL (<2.0); WBC,Urine >182 /hpf (0-5)
[2025-05-03 15:15] LABS: INR 1.0 (<1.2); Partial Thromboplastin Time 25.1 sec (22.0-30.0); Prothrombin Time 10.8 sec (10.0-12.5)
[2025-05-03 15:21] LABS: ALT 34 U/L (4-34); AST 35 U/L (14-36); African American GFR (CKD) 87 (>60 ml/min/1.73 sqM); Albumin 4.6 g/dL (3.5-5.0); Alkaline Phosphatase 69 U/L (38-126); Anion Gap 14 mmol/L; Blood Urea Nitrogen 21 mg/dL (7-17); Calcium 10.1 mg/dL (8.4-10.2); Carbon Dioxide 26 mmol/L (22-30); Chloride 101 mmol/L (98-107); Glucose 103 mg/dL (74-99); Magnesium 2.0 mg/dL (1.6-2.3); Non-African American GFR(CKD) 75 (>60 ml/min/1.73 sqM); Potassium 4.7 mmol/L (3.5-5.1); Sodium 141 mmol/L (137-145); Total Protein 7.6 g/dL (6.3-8.2)
[2025-05-03] MEDS: SODIUM CHLORIDE 0.9% 1,000 ML IV ONE (15:36)
--- NOTE | 2025-05-03 16:45 | CT ---
EXAMINATION TYPE: CT abdomen pelvis wo con DATE OF EXAM: 05/03/2025 4:02 PM COMPARISON: Multiple prior CT abdomen/pelvis studies, most recently dated 07/19/2022. CLINICAL INDICATION: Female, 69 years old with history of abd pain, back pain; c/o dysuria urgency fr equency dizziness and nausea. no fever TECHNIQUE: Axial CT abdomen pelvis wo con;Sagittal and coronal reformats were created on a separate workstation. Oral contrast used: without Oral Contrast (none if empty) CT DLP: 648.6 mGycm, Automated exposure control for dose reduction was used. FINDINGS: LOWER CHEST: Unremarkable ABDOMEN LIVER: Unremarkable GALLBLADDER AND BILE DUCTS: Unremarkable. PANCREAS: Unremarkable. SPLEEN: Unremarkable. ADRENAL GLANDS: Unremarkable. KIDNEYS AND URETERS: Small nonobstructing bilateral renal calculi. Additionally, there is mild right- sided hydronephrosis without discrete evidence of an obstructing ureteral calculus. Simple right cesar l cyst. PELVIS BLADDER: No evidence for wall thickening or mass given limitations of exam. REPRODUCTIVE: The uterus is surgically absent. ABDOMEN & PELVIS STOMACH AND BOWEL: Stomach and duodenum are unremarkable. No evidence of bowel obstruction. PERITONEUM/RETROPERITONEUM: No evidence of pneumoperitoneum or free fluid. VASCULATURE: No evidence of aortic aneurysm. MUSCULOSKELETAL: No acute osseous abnormalities LYMPH NODES: No gross evidence for lymphadenopathy. SOFT TISSUE/ABDOMINAL WALL: Unremarkable IMPRESSION: 1. Mild right-sided hydronephrosis without discrete evidence of an obstructing ureteral calculus. Fi ndings could reflect sequelae of recently passed stone. Consider outpatient CT urogram study if sympt oms persist or as clinically warranted for further evaluation. 2. Nonobstructing small bilateral renal calculi. [facility], , 05/03/2025 4:42 PM
[2025-05-03] MEDS: cefTRIAXone IN SWFI 1,000 MG/10 ML SYRINGE IVP STA (18:16)
[2025-05-03 18:28] VITALS: BP 129/60; PULSE 60; RESP 16; TEMP 98
== END 2025-05-03 18:37 | disposition home or self-care (01) ==
LOC: EC 13:33
DX: N39.0 Urinary tract infection, site not specified (principal); Z87.891 Personal history of nicotine dependence; Z88.6 Allergy status to analgesic agent; Z88.8 Allergy status to other drugs, medicaments and biological substances; Z91.041 Radiographic dye allergy status
CPT/HCPCS: 36415; 93005; 80053; 83605; 83735; 85025; 85610; 85730; 81001; 87086; 87077; 87186; 74176; 99284; 96374; 96361; J0696